=== PATIENT | female | born 1990 | race Caucasian/White ===

== ENCOUNTER 2024-11-03 14:54 | Outpatient (CLI) | payer OTHER, SELFPAY ==
--- NOTE | ~2024-11-03 | US_ITS ---
EXAMINATION: US OB transvaginal DATE: 11/03/2024 15:21 INDICATION: High risk . TECHNIQUE: Real-time transvaginal pelvic ultrasound was performed. COMPARISON: None. FINDINGS: The uterus measures 8.7 x 7.0 x 6.3 cm. There is an intrauterine gestational sac. A yolk sac is ident ified. The crown rump length measures 3 mm, which correlates with an estimated gestational age of 6 weeks and 0 day(s) (+/-) 3 day(s). heart motion is identified, but the rate could not be measured. The right ovary measures 4.2 x 2.5 x 2.6 cm. The left ovary measures 3.8 x 2.8 x 2.3 cm. Th ere is a 6 mm subchorionic hematoma. There is a 10 mm intramural fibroid. There is no free fluid in t he pelvis. IMPRESSION: 1. Single living intrauterine gestation with estimated date of delivery of 06/29/2025. 2. Small subchorionic hematoma. Reviewed, dictated and finalized at location A. CAR BRACER IMPRESSION: 1. Single living intrauterine gestation with estimated date of delivery of 06/29. 2. Small subchorionic hematoma.
== END 2024-11-03 14:55 | disposition home or self-care (01) ==
PROVIDERS: PCP Family Medicine; Visit Provider Family Medicine
DX: O09.90 Supervision of high risk pregnancy, unspecified, unspecified trimester (principal)
CPT/HCPCS: 76817

== ENCOUNTER 2024-12-01 09:15 | Outpatient (CLI) | payer OTHER, SELFPAY ==
[2024-12-01 10:21] LABS: Basophils Absolute Auto 0.1 K/mm3 (0.0-0.1); Basophils Percent Auto 0.5 % (0.2-1.2); Eosinophils Absolute Auto 0.1 K/mm3 (0-0.3); Eosinophils Percent Auto 0.6 % (0-4.4); Hematocrit 38.6 % (37.0-47.0); Hemoglobin 12.5 g/dL (12.0-15.0); Immature Granulocyte Absolute 0.05 K/mm3 (0.00-0.031); Immature Granulocyte Percent A 0.5 % (0-0.5); Lymphocytes Absolute Auto 1.77 K/mm3 (0.9-3.2); Mean Corpuscular HGB Conc 32.4 g/dl (32-36); Mean Corpuscular Hemoglobin 29.3 pg (26-34); Mean Corpuscular Volume 90.6 fl (80-100); Mean Platelet Volume 10.9 fl (7.4-10.4); Monocytes Absolute Auto 0.5 K/mm3 (0.1-0.6); Monocytes Percent Auto 5.5 % (2.6-8.5); Neutrophils Absolute Auto 6.9 K/mm3 (1.3-6.7); Neutrophils Percent Auto 73.9 % (45.5-73.1); Platelet Count Result 315 k/mm3 (150-375); Red Blood Count 4.26 M/mm3 (4.2-5.4); Red Cell Distribution Width 13.8 % (11.5-14.5); White Blood Count 9.3 K/mm3 (4.5-10.0)
[2024-12-01 10:28] LABS: Add Urine Microscopic? NO; Appearance Urine Clear (Clear); Bilirubin Urine Negative (Negative); Blood Urine Negative (Negative); Color Urine Yellow (Yellow); Glucose Urine UA Negative (Negative); Ketones Urine Negative (Negative); Leukocyte Esterase Ur Negative LEU/UL (Negative); Nitrate Urine Negative (Negative); Protein Urine Negative (Negative); Specific Grav Ur 1.006 (1.001-1.035); Urobilinogen Urine 0.2 mg/dL (<2.0); pH Urine 6.5 (5.0-9.0)
[2024-12-01 11:15] LABS: HIV 1/2 Ab P24 Ag Result Negative (Negative)
[2024-12-01 11:18] LABS: Hepatitis B Surface Antigen Negative (Negative)
[2024-12-01 11:30] LABS: Hepatitis C Virus Antibody Negative (Negative)
[2024-12-01 15:30] LABS: Rapid Plasma Reagin Non-Reactive (NonReactive)
[2024-12-02 16:45] LABS: Hematocrit 37.6 % (35.0-45.0); Hemoglobin 12.6 g/dL (11.7-15.5); MCH 30.1 pg (27.0-33.0); RDW 13.5 % (11.0-15.0); Red Blood Cell Count 4.18 Million/uL (3.80-5.10)
[2024-12-02 20:08] LABS: Varicella IgG Antibody 3.77 S/CO
== END 2024-12-01 09:16 | disposition home or self-care (01) ==
LOC: ANHLAB 09:19
PROVIDERS: PCP Family Medicine; Visit Provider Nurse Practitioner Obstetrics & Gynecology
DX: Z34.90 Encounter for supervision of normal pregnancy, unspecified, unspecified trimester (principal)
CPT/HCPCS: 36415; 81003; 83021; 85025; 86592; 86703; 86762; 86787; 86803; 86850; 86900; 86901; 87086; 87340; G0432

== ENCOUNTER 2024-12-17 08:29 | Outpatient (CLI) | payer OTHER, SELFPAY ==
--- OUTSIDE RECORDS SUMMARY | 2024-12-17 08:34 | XMS_ITS | Clinical Summary ---
Author Organization [facility] Address [address] [place] [address] Phone Care Team Providers Care Gas Meter Prover Name Role Phone Bal Foster MD Primary Care Provider [phone] Allergies Active Allergy Reactions Criticality Noted Date Comments Azithromycin Nausea,Palpitations, Vomiting,Other (see Comments) High 08/19/2021 Stomach pain Penicillin G Hives 03/30/2022 [place] Extract Hives,Rash,Itching,S welling High 08/19/2021 Swelling in throat Wound Dressing Adhesive Rash High 08/19/2021 Band-aid , Tape, medical tape Medications No known medications Active Problems No known active problems Family History Medical History Relation Name Comments No Known Problems Brother 1 No Known Problems Brother 2 Diabetes Father High Cholesterol Father Hypertension Father Kidney Disease Father Asthma Maternal Grandfather Heart Attack Maternal Grandfather Heart Disease Maternal Grandfather Heart Surgery Maternal Grandfather No Known Problems Maternal Grandmother Endometriosis Mother Migraines Mother Thyroid Disease Mother Kidney Disease Paternal Grandfather Kidney Stones Paternal Grandfather Renal Failure Paternal Grandfather Thyroid Cancer Paternal Grandmother Ulcerative Colitis Paternal Grandmother No Known Problems Sister Relation Name Status Comments Brother 1 Alive Brother 2 Alive Father Alive Maternal Grandfather Maternal Grandmother Alive Mother Alive Paternal Grandfather Paternal Grandmother Alive Sister Alive Social History Tobacco Use Types Packs/Day Years Used Date Smoking Tobacco: Never Smokeless Tobacco: Never Tobacco Cessation:Counseling Given: Yes Alcohol Use Standard Drinks/Week Comments Never 0 (1 standard drink = 0.6 oz pur e alcohol) PHQ-2 Answer Date Recorded Total Score - Questions 1-9 0 07/25 Sexually Active Control Partners Comments Not Currently Comments No Sex and Gender Information Value Date Recorded Sex Assigned at Not on file Legal Sex Female 3:24 PM CDT Gender Identity Not on file Sexual Orientation Not on file 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 Not on file Not on file Not on file Last Filed Vital Signs Vital Sign Reading Time Taken Comments Blood Pressure 136/89 03/30/2022 11:49 PM CDT Pulse 86 03/30/2022 11:49 PM CDT Temperature 37.3 ??C (99.1 ??F) 03/30/2022 9:41 PM CD T Respiratory Rate 16 03/30/2022 11:49 PM CDT Oxygen Saturation 98% 03/30/2022 11:49 PM CDT Inhaled Oxygen Concentration - - Weight 131.5 kg (290 lb) 03/30/2022 9:41 PM CDT Height 167.6 cm (5' 6 ) 03/30/2022 9:41 PM CDT Body Mass Index 46.81 03/30/2022 9:41 PM CDT Plan of Treatment Health Maintenance Due Date Last Done Comments Hepatitis C Virus (HCV) Screening 1992 TdaP Immunization 1992 Hepatitis B Immunization (1 of 3 - 19+ 3-dose series) 2011 Pap Smear 2013 Cervical Cancer Screening (CCS) 2022 HPV/Cotest 2022 Influenza Immunization (#1) 2024 SARS-COV-2 Immunization ( season) 2024 11/02/2021, 10/05/2021 Respiratory Syncytial Virus (RSV) Immunization (Adult) (1 - 1-dose 75+ series) 2067 Meningococcal Immunization (ACWY) Aged Out No longer eligible b ased on patient's age to complete this topic Pneumococcal Immunization Combined Aged Out No longer eligible b ased on patient's age to complete this topic Rotavirus Immunization Aged Out No lo nger eligible based on patient's age to complete this topic Care Teams Gas Meter Prover Relationship Specialty Start Date End Date Bal Foster MD PCP - General Family Medicine 08/07/21
--- OUTSIDE RECORDS SUMMARY | 2024-12-17 08:34 | XMS_ITS | Data Portability ---
Author Organization [facility] , [facility] Address [address] [place] [address] Assessment No assessment recorded. Plan of Treatment Reminders Order Date Submit Date Provider Last Modified By Organization Details Last Modified Time Details Appointments None jovany enamorado Lab pap, LB 2021 [facility], [address] [place], [address], 21:32:53 HPV E6+E7 mRNA, qualita tive PCR, cervix 2021 [facility], [address] [place] [address], [address], 22:46:23 progest erone, serum 2021 [facility], [address] [place], [address], 18:22:13 estradi ol, serum 2021 [facility], [address] [place], [address], 2 18:22:14 [facility] - anti-mu llerian hormone (amh), female 2021 [facility], [address] [place], [address], 18:22:12 FSH (follic le-stim ulating hormone ), serum 2021 [facility], [address] [place], [address], 18:22:13 prolact in, serum 2021 [facility], [address] [place], [address], 18:22:14 TSH + free T4, serum 2021 [facility], [address] [place], [address], 18:22:14 testost erone, total, serum 2021 [facility], [address] [place], [address], 18:22:15 dhea-casillas lfate, serum 2021 [facility], [address] [place], [address], 18:22:12 Referral None recorde d. Procedures None recorde d. Surgeries None recorde d. Imaging None recorde d. Medication Orders None recorde d. Patient TargetsNo targets recorded. Patient Instructions Encounter Date Encounter Id Patient Instructions Last Modified By Organization Details Last Modified Time 04/23/2022 [id number] Order given to patient for to get semen analysis, patient having labs drawn today, after lab results will start patient on provera and letrazole. [email or web address] Not available 04/23/2022 20:10:34 Reason for Referral None Reported. Results Created Date Observation Date Name Description Value Unit Range Abnormal Flag Note LastModifiedBy Organization Detail LastModifiedTime 03/12/20 22 03/13/2022 HPV HIGH RISK HPV high risk Negati ve negati ve normal The HPV High Risk assay is inten ded for use as co-te sting with cytol ogy and not as a subst itute for regul ar cervi neva cytol ogy scree mitchell. This assay is not inten ded for use as a scree mitchell devic e for women under age 30 with carissa l cervi neva cytol ogy. Not Available [facility] [address] [place], [address], 04/02/2022 18:30:59 03/12/20 22 03/18/2022 THINP REP TIS PAP clinical information: normal Infor matio n not provi ded Not Available [facility] [address] [address] [place], [address], 03/18/2022 21:32:53 03/12/20 22 03/18/2022 THINP REP TIS PAP LMP: normal Infor matio n not provi ded Not Available [address] [place], [address], 03/18/2022 21:32:53 03/12/20 22 03/18/2022 THINP REP TIS PAP prev. Pap: normal Infor matio n not provi ded Not Available [facility] [address] [address] [place], [address], 03/18/2022 21:32:53 03/12/20 22 03/18/2022 THINP REP TIS PAP prev. BX: normal Infor matio n not provi ded Not Available [address] [place], [address], 03/18/2022 21:32:53 03/12/20 22 03/18/2022 THINP REP TIS PAP source: normal Endoc ervix Not Available [facility] [address] [address] [place], [address], 03/18/2022 21:32:53 03/12/20 22 03/18/2022 THINP REP TIS PAP statement of adequacy: normal Satis facto ry for evalu ation . Endoc ervic al/tr ansfo rmati on zone compo nent prese nt. Age and/o r menst rual statu s not provi ded Not Available [address] [address] [place], [address], 03/18/2022 21:32:53 03/12/20 22 03/18/2022 THINP REP TIS PAP interpretati on/result: normal Negat ekaterina for intra epith elial lesio n or malig elizabeth . Not Available [address] [address] [place], [address], 03/18/2022 21:32:53 03/12/20 22 03/18/2022 THINP REP TIS PAP comment: normal This Pap test has been evalu ated with jimmy troncoso techn ology . Not Available [address] [address] [place], [address], 03/18/2022 21:32:53 03/12/20 22 03/18/2022 THINP REP TIS PAP cytotechnolo gist: normal ABC, CT( CP) CT scree mitchell locat ion: [address] [address] [place] [address] Not Available [address] [address] [place], [address], 03/18/2022 21:32:53 03/12/20 22 03/18/2022 THINP REP TIS PAP comment EXPLA NATOR Y NOTE: The Pap is a scree mitchell test for cervi neva cance r. It is not a diagn ostic test and is subje ct to false negat ekaterina and false posit ekaterina resul ts. It is most relia ble when a satis facto ry sampl e, regul corky obtai maximus, is submi tted with relev ant clini neva findi ngs and histo ry, and when the Pap resul t is evalu ated along with histo valentina and curre nt clini neva infor matio n. Not Available [address] [address] [place], [address], 03/18/2022 21:32:53 04/23/20 22 04/25/2022 ANTI- MULLE DEREK HORMO NE (AMH) , FEMAL E anti-mulleri an hormone (amh), female 13.51 NG/mL 0.69-1 3.39 high Not Available [address], [address], 04/25/2022 18:22:12 04/23/20 22 04/25/2022 DHEA SULFA TE DHEA sulfate 107 mcg/d L 14-349 normal Not Available [facility] [address] [address] [place], [address], 04/25/2022 18:22:12 04/23/20 22 04/25/2022 FSH FSH 7.1 mIU/m L normal Refer ence Range Folli cular Phase 2.5-1 0.2 Mid-c ycle Peak 3.1-1 7.7 Lutea l Phase 1.5- 9.1 Postm enopa usal 23.0- 116.3 Not Available [facility] [address] [address] [place], [address], 04/25/2022 18:22:13 04/23/20 22 04/25/2022 PROGE STERO NE progesterone 0.5 NG/mL normal Refer ence Range s Femal e Folli cular Phase < 1.0 Lutea l Phase 2.6-2 1.5 Post menop ausal < 0.5 Pregn wendy 1st Trime ster 4.1-3 4.0 2nd Trime ster 24.0- 76.0 3rd Trime ster 52.0- 302.0 Not Available [facility] [address] [address] [place], [address], 04/25/2022 18:22:13 04/23/20 22 04/25/2022 PROLA CTIN prolactin 8.8 NG/mL normal Refer ence Range Femal es Non-p regna nt 3.0-3 0.0 Pregn ant 10.0- 209.0 Postm enopa usal 2.0-2 0.0 Not Available [facility] [address] [place], [address], 04/25/2022 18:22:14 04/23/20 22 04/25/2022 ESTRA DIOL estradiol 37 pg/mL normal Refer ence Range Folli cular Phase : 19-14 4 Mid-C ycle: 64-35 7 Lutea l Phase : 56-21 4 Postm enopa usal: < or = 31 Refer ence range estab lishe d on post- puber kendy patie nt popul ation . No pre-p ubert al refer ence range estab lishe d using this assay . For any patie nts for whom low Estra diol level s are antic ipate d (e.g. males , pre-p ubert al child katiuska and hypog onada l/pos t-men opaus al femal es), the [facility] Estra diol, Ultra sensi tive, LCMSM S assay is recom itzel d (orde r code 73220 ). Pleas e note: patie nts being treat ed with the drug fulve stran t (Fasl odex( R)) have demon strat ed signi fican t inter feren ce in immun oassa y metho ds for estra diol measu remen t. The cross react ivity could lead to false ly eleva adalberto estra diol test resul ts leadi ng to an inapp ropri ate clini neva asses sment of estro gen statu s. [facility] order code [id number] -Estr adiol , Ultra sensi tive LC/MS /MS demon strat es negli gible cross react ivity with fulve stran t. Not Available [facility] [address] [place], [address], 04/25/2022 18:22:14 04/23/20 22 04/25/2022 TSH+F REE T4 TSH 5.18 mIU/L high Refer ence Range > or = 20 Years 0.40- 4.50 Pregn wendy Range s First trime ster 0.26- 2.66 Secon d trime ster 0.55- 2.73 Third trime ster 0.43- 2.91 Not Available [facility] [address], [place], [address], 04/25/2022 18:22:14 04/23/20 22 04/25/2022 TSH+F REE T4 T4, free 1.4 NG/dL 0.8-1. 8 normal Not Available [facility] [address], [place], [address], 04/25/2022 18:22:14 04/23/20 22 04/25/2022 TESTO STERO NE, TOTAL , MS testosterone , total, MS 50 NG/dL 2-45 high For addit ional infor dong mack refer to https ://ed ucati on.i-Human Patients/f aq/To Regan javed LCMSM S (This link is being provi ded for infor danie nal/e ducat ional purpo ses only. ) (Note ) This test was devel oped and its harjinder tical perfo rmanc e bashir cteri stics have been deter mined by [employer]. It has not been clear ed or appro chery by the FDA. This assay has been valid ated pursu ant to the CLIA regul ation s and is used for clini neva purpo ses. PK samuel [address] [facility] [address] [facility] [address] [phone] Garry sabillon MD Not Available [facility] [address], [place], [address], 04/25/2022 18:22:15 Result Notes None recorded. Procedures Surgical History Date Name Laterality Status Provider Name and Address Organization Details Recorded Time 03/12/2022 Date of Last Pap Smear completed [facility] 04/23/2022 15:46:12 Knee arthroscopy /surgery completed [facility] 04/23/2022 15:43:25 Imaging Results None recorded. Procedure Notes None recorded. Medical Equipment None Reported. Allergies Allergen ID Allergen Name Allergen Category Reaction Reaction Severity Criticality Documentation Date Start Date Code Code System Note Provider Name and Address Organization Details Recorded Time [id number] 2824e latex environme nt,medica tion Not available Not available Not available 03/12/2022 04636 91 RxNorm Not Available Not Available Not Available [id number] 4519516o0 2824e Product containin g penicilli n and antibioti c (product) medicatio n Not available Not available Not available 03/12/2022 61883 05 SNOMED Not Available Not Available Not Available [id number] [id number] 2824e azithromy radha medicatio n Not available Not available Not available 03/12/2022 56364 RxNorm Not Available Not Available Not Available Medications Name Sig Start Date Stop Date Status Note LastModified by Organization Details LastModified Time medroxyprog esterone 10 mg tablet 03/12 completed Not Available Not Available Not Available promethazin e-DM 6.25 mg-15 mg/5 mL oral syrup TAKE 5 ML BY MOUTH EVERY 4 HOURS NEEDED FOR COUGH 03/12 completed Not Available Not Available Not Available meloxicam 15 mg tablet TAKE 1 TABLET BY MOUTH DAILY 03/12 completed Not Available Not Available Not Available sulfamethox azole 800 mg-trimetho prim 160 mg tablet TAKE 1 TABLET BY MOUTH TWICE DAILY 03/12 completed Not Available Not Available Not Available benzonatate 100 mg capsule TAKE 2 CAPSULES BY MOUTH THREE TIMES DAILY FOR UP TO 10 DAYS NEEDED FOR COUGH 03/12 completed Not Available Not Available Not Available norethindro ne acetate 5 mg tablet active Not Available Not Available Not Available letrozole 2.5 mg tablet TAKE ONE TABLET BY MOUTH DAYS 3-7 OF CYCLE EACH MONTH active Not Available Not Available No t Available methylpredn isolone 4 mg tablets in a dose pack TAKE BY MOUTH DIRECTED 03/12 completed Not Available Not Available Not Available albuterol sulfate HFA 90 mcg/actuati on aerosol inhaler INHALE 2 PUFFS BY MOUTH EVERY 4 TO 6 HOURS NEEDED FOR COUGH OR WHEEZING 03/12 completed Not Available Not Available Not Available Vitals Date Recorded Body height Provider Name an d Address Organization Details Last Updated DateTime 03/12/2022 167.64 cm [facility] 03/12/2022 10:32:26 Date Recorded Body mass index (BMI) Body weight Provider Name and Address Organization Details Last Updated DateTime 03/12/2022 47.5 kg/m2 222510.16 g Tarah BURKS [facility] 03/12/2022 10:32:39 Date Recorded Body height Provider Name an d Address Organization Details Last Updated DateTime 04/23/2022 167.64 cm Juanis Pennington [facility] 04/23/2022 15:45:37 Date Recorded Body mass index (BMI) Body weight Provider Name and Address Organization Details Last Updated DateTime 04/23/2022 46.9 kg/m2 775285.66 g Juanis Pennington [place] [facility] 04/23/2022 15:48:05 Date Recorded Body temperature Provider Name a nd Address Organization Details Last Updated DateTime 04/23/2022 97.3 [degF] Juanis Pennington [facility] 04/23/2022 15:48:11 Date Recorded Systolic blood pressure Diastolic blood pressure Provider Name and Address Organization Details Last Updated DateTime 03/12/2022 120 mm[Hg] 80 mm[Hg] Tarah Rich [facility] 03/12/2022 10:32:30 Date Recorded Systolic blood pressure Diastolic blood pressure Provider Name and Address Organization Details Last Updated DateTime 04/23/2022 130 mm[Hg] 78 mm[Hg] Juanis Pennington [facility] 04/23/2022 15:47:59 Social History Question Answer Notes LastModified by Organizat ion Details LastModified Time Tobacco Smoking Status Never Smoker Tarah child, [facility] 03/12/2022 10:18:44 What Is Your Level Of Alcohol Consumption? None [email or web address] Information not available 03/12/2022 Are You Blind Or Do You Have Difficulty Seeing? No [email or web address] Information not available 04/23/2022 Are You Deaf Or Do You Have Serious Difficulty Hearing? No [email or web address] Information not available 04/23/2022 What Type Of Diet Are You Following? REGULAR [email or web address] Information not available 03/12/2022 Do You Or Have You Ever Used E-cigarettes Or Vape? Never Used Electronic Cigarettes [email or web address] Information not available 03/12/2022 How Many Children Do You Have? 1 [email or web address] Information not available 04/23/2022 What Is Your Relationship Status? Information not available 03/12/2022 Are You Sexually Active? Yes Information not available 03/12/2022 Do You Use Any Illicit Or Recreational Drugs? No [email or web address] Information not available 04/23/2022 Do You Or Have You Ever Used Any Other Forms Of Tobacco Or Nicotine? No [email or web address] Information not available 04/23/2022 Sex: Unknown Functional Status Question Answer Note LastModified by Organization D etails LastModified Time What is your exercise level? Moderate [email or web address] Information not available 03/12/2022 Mental Status None recorded. Family History Relationship Description Onset Age of this Age Resolved Age Notes LastModified by Organization Details LastModified Time Paternal Grandfather Hypercholest erolemia [email or web address] Not available 03/12 10:18:16 Paternal Grandfather Heart disease [email or web address] Not available 03/12 10:18:16 Mother Endometriosi s (clinical) [email or web address] Not available 10:18:16 Mother Hyperthyroid ism [email or web address] Not available 03/12 10:18:16 Father Diabetes mellitus [email or web address] Not available 03/12 10:18:16 Father Hypertensive disorder [email or web address] Not available 03/12 10:18:16 Maternal Grandfather Myocardial infarction [email or web address] Not available 02/22 10:18:16 Maternal Grandfather Heart disease [email or web address] Not available 03/12 10:18:16 Paternal Grandmother Malignant neoplastic disease [email or web address] Not available 03/12 10:18:16 Medical History Condition Response Other Cancer N High Blood Pressure N Colon Cancer N Cytomegalovirus N Hyperthyroidism N MRSA N Blood Transfusion N Herpes (HSV) N Breast Cancer N Lung Cancer N Depression N Hypothyroidism N Incontinence N Panic Attacks N Neurological Disorder N Deep Vein Thrombosis N Anxiety Disorder N Autoimmune disease N Arthritis N Tuberculosis/Positive PPD N Shingles N Polycystic Ovarian Syndrome N Cervical Cancer N Hematuria N Chlamydia N Stroke N Varicosities N Seasonal allergies N Crohn's Disease N Alzheimer's/Dementia N COPD/Emphysema N HPV/Genital Warts N Endometriosis N IBS (Irritable Bowel Syndrome) N History of Abnormal Pap N High Cholesterol N Liver Disease N Kidney Infection N Fibromyalgia N Ulcer N Kidney Disease N HIV N Gallbladder disease N Sickle Cell Disease/Trait N Von Willebrand disease N ADD/ADHD N Eating Disorder N Anemia N Diabetes Mellitus (non-insulin dependent ) N Multiple Sclerosis N Ovarian Problems N Gonorrhea N Frequent Urinary Tract infections N Osteopenia N Headaches/migraines N GERD (reflux) N Ovarian Cancer N Diabetes (insulin dependent) N Seizures/Epilepsy N Fibroids N Asthma N Heart Attack N Lupus N Endometrial Cancer N Rubella N Blood Clotting Disorder N Bipolar Disorder N Diabetes Mellitus (during ) N Ulcerative Colitis N Hepatitis N Heart Disease N Pulmonary Embolism N RPR N Chicken Pox N Osteoporosis N Gynecological History Statement/Question Response Flow Light Frequency of Cycle (Q days) Irregular Date of LMP 06/26/2021 Date of Last Pap Smear 03/12/2022 Duration of Flow (days) 3-4 Most Recent Mammogram Current Control Method Fertility I ssues Age at Menarche 16 Obstetrics History GPAL:G 1 P 1 0 0 1 Type Value Full Term 1 Living 1 Total 1 Past Encounters Encounter ID Performer Location Encounter Start Date Encounter Closed Date Diagnosis/Indication Diagnosis SNOMED-CT Code Diagnosis ICD10 Code Diagnosis Note [id number] [facility]ell[facility] [address] [place] [address] 03/12/2022 09:50:30 03/12/2022 12:56:09 Screening for malignant neoplasm of cervix 946482490 Z12.4 Gynecologi c examination 91232314 Z01.331 [id number] Munira Ng, [facility] [address] [place] [address] 04/23/2022 15:31:58 04/23/2022 16:27:25 Reproductive care management [id number] Z31.9 Health Concerns Section Related Observation LastModified by Organization Detai ls LastModified Time None Recorded Concern Status LastModified by Organization Details LastModified Time None Recorded Advance Directives Directive None Recorded Payers Encounter Date Sequence Insurance Name Policy Number Policy Cummings Covered Member ID Cummings Member ID Guarantor Name 03/12/2022 1 [place] [id number] Domitila Shepard [id number] Domitila Shepard 04/23/2022 1 [place] [id number] Domitila Shepard [id number] Domitila Shepard Notes Date Note Type Note Provider Name and Address Organization Details Recorded Time 04/23/2022 text/html Patient is here to discuss fertility. had a @ 37 weeks gestation 3 years ago due to preeclampsia. She was treated with provera and letrazole to conceive during her first . She has a history of PCOS, does not have regular cycles. She has not had a menses since June 2021. Her is Srinivas Shepard [birth year]13/1991, patient states that he had a low semen count during her first . Munira Ng, DO [facility], [place], [address], [facility] 04/23/2022 20:10:56 OBGyn Episode No OBEpisode recorded.
--- OUTSIDE RECORDS SUMMARY | 2024-12-17 08:34 | XMS_ITS | Clinical Summary ---
Author Organization [facility] Address [address] [place] [address]. [place], [place] [id number] [place] [id number] Care Team Providers Care Index Editor Name Role Phone Pauline Sanchez MD Primary Care Provider [phone]- [phone] Allergies Active Allergy Reactions Criticality Noted Date Comments Azithromycin Unknown 09/15/2024 Medications cephALEXin (KEFLEX) 500 MG capsule Take 1 capsule (500 mg total) by mouth 2 (two) times daily. Active WEGOVY 1.7 mg/dose injection (PEN) Inject 1.7 mg into the skin once a week. Active sertraline (ZOLOFT) 25 MG tablet Take 1 tablet (25 mg total) by mouth daily. Active ciprofloxacin (CILOXAN) 0.3 % ophthalmic solution Administer 1 drop, every 2 hours, while awake, for 2 days. Then 1 drop, every 4 hours, while awake, for the next 5 days. 5 mL Active Encounters Date Type Department Care Team Description 10/28/2024 8:36 AM CYBER DEFENSE FORENSICS ANALYST - 10/28/2024 11:59 PM CYBER DEFENSE FORENSICS ANALYST Hospital Encounter [facility] [address] [place] [address] Pauline Sanchez MD Discharge Disposition: Home or Self Care (Routine Discharge) 10/28/2024 Travel from Last 3 Months Social History Tobacco Use Types Packs/Day Years Used Date Smoking Tobacco: Never Smokeless Tobacco: Never Tobacco Cessation:Counseling Given: Not Answered Comments No Sex and Gender Information Value Date Recorded Sex Assigned at Not on file Legal Sex Female 9:16 AM CYBER DEFENSE FORENSICS ANALYST Gender Identity Not on file Sexual Orientation Not on file Last Filed Vital Signs Vital Sign Reading Time Taken Comments Blood Pressure 130/84 09/15/2024 6:30 PM CDT Pulse 86 09/15/2024 6:30 PM CDT Temperature 36.5 ??C (97.7 ??F) 09/15/2024 5:20 PM CD T Respiratory Rate 18 09/15/2024 6:30 PM CDT Oxygen Saturation 96% 09/15/2024 6:30 PM CDT Inhaled Oxygen Concentration - - Weight 115.8 kg (255 lb 4 oz) 09/15/2024 5:20 PM CDT Height 166.4 cm (5' 5.5 ) 09/15/2024 5:20 PM CDT Body Mass Index 41.83 09/15/2024 5:20 PM CDT Plan of Treatment Health Maintenance Due Date Last Done Comments Cervical Cancer Screening Pa p Smear (Age 30 to 64) Every 3 Years 1992 Annual Physical 1995 Hepatitis C 2010 Hepatitis B Vaccines (1 of 3 - 19+ 3-dose series) 2011 Cervical Cancer Screening Pa p with HPV Testing (Age 30 to 64) Every 5 Years 2022 Cervical Cancer Screening [facility] HPV 2022 COVID-19 Vaccine (3 - 2023-2 5 season) 2024 11/02/2021, 10/05/2021 Influenza Adult (#1) 2024 DTaP, Tdap and Td Vaccines ( 2 - Td or Tdap) 11/23/2028 11/23/2018 HPV Vaccines Aged Out No longer eligi ble based on patient's age to complete this topic Meningococcal Vaccine Aged Out No jenaro reena eligible based on patient's age to complete this topic Pneumococcal Vaccine: Pediatrics (0 to 5 Years) and At-Risk Patients (6 to 64 Years) Aged Out No longer eligible b ased on patient's age to complete this topic RSV Immunizations Under 20 Months Aged Out No longer eligible b ased on patient's age to complete this topic Procedures Procedure Name Priority Date/Time Associated Diagnosis Comments US OB <14WKS TA+TV Routine 10/28/2024 9: 36 AM CYBER DEFENSE FORENSICS ANALYST High risk case management patient ([facility]) from Last 3 Months Results * US OB <14WKS TA+TV (10/28/2024 9:36 AM CYBER DEFENSE FORENSICS ANALYST) Anatomical Region Laterality Modality Ultrasound 10/28/2024 4:55 PM CYBER DEFENSE FORENSICS ANALYST Impressions 10/28/2024 5:04 PM CYBER DEFENSE FORENSICS ANALYST IMPRESSION: 1. Enlarged heterogeneous uterus. Endometrial cavity structure with features suggestive of a gestational sac. Although no yolk sac or embryo demonstrated at this time. Differential considerations include early versus anembryonic /blighted ovum versus potential pseudogestational sac in the setting of ectopic . Recommend clinical correlation with beta hCG and consider follow-up short-term interval ultrasound to reassess. 2. Nabothian cysts and/or some minimal fluid in endocervical canal. 3. Heterogeneous uterus with focal findings anterior uterine myometrium. Potentially represents subtle fibroid or less likely focal adenomyosis. Ordered By: PAULINE SANCHEZ Interpreted By: Keli Johnson MD, 10/28/2024 4:55 PM Narrative 10/28/2024 5:04 PM CYBER DEFENSE FORENSICS ANALYST [address] [place] [address] EXAM: NONOBSTETRIC PELVIC ULTRASOUND Exam Date: 10/28/2024 8:36 AM INDICATION: Reported gravid female, high risk. No beta hCG level provided. . LMP: 09/15/2024 TECHNIQUE: Static sonographic transabdominal and transvaginal grayscale images supplemented with Doppler imaging. COMPARISON: None FINDINGS: UTERUS: Anteverted anteflexed mildly enlarged heterogeneous appearing uterus. Within the endometrial cavity focal anechoic ovoid structure at the level of the fundus towards the left noted. There may be subtle associated surrounding decidual reaction thereby potentially representing gestational sac. However no yolk sac or embryo demonstrated. This measures approximately 10 x 5 x 10 mm correlating with 5 weeks 3 days gestation. Heterogeneous mixed echogenicity and echotexture of the myometrium throughout. More focal dominant potential subtle heterogeneous mass with differential shadowing anterior uterine fundus/body junction suggested. CERVICAL CANAL: Heterogeneous appearance of the partially obscured endocervical canal with suggestion of small nabothian cysts at/or minimal fluid. ADNEXAE / CUL-DE-SAC: Both ovaries are identified and within normal limits for size, morphology, and exhibited vascular spectral waveforms. No suspicious adnexal mass demonstrated. No significant cul-de-sac free fluid. Procedure Note Keli Johnson MD - 10/28/2024 [facility] [address] [place] [address] EXAM: NONOBSTETRIC PELVIC ULTRASOUND Exam Date: 10/28/2024 8:36 AM INDICATION: Reported gravid female, high risk. No beta hCG level provided.. LMP: 09/15/2024 TECHNIQUE: Static sonographic transabdominal and transvaginal grayscaleimages supplemented with Doppler imaging. COMPARISON: None FINDINGS: UTERUS: Anteverted anteflexed mildly enlarged heterogeneous appearinguterus. Within the endometrial cavity focal anechoic ovoid structure atthe level of the fundus towards the left noted. There may be subtleassociated surrounding decidual reaction thereby potentially representinggestational sac. However no yolk sac or embryo demonstrated. This measuresapproximately 10 x 5 x 10 mm correlating with 5 weeks 3 days gestation. Heterogeneous mixed echogenicity and echotexture of the myometriumthroughout. More focal dominant potential subtle heterogeneous mass withdifferential shadowing anterior uterine fundus/body junction suggested. CERVICAL CANAL: Heterogeneous appearance of the partially obscuredendocervical canal with suggestion of small nabothian cysts at/or minimalfluid. ADNEXAE / CUL-DE-SAC: Both ovaries are identified and within normal limits for size, morphology,and exhibited vascular spectral waveforms. No suspicious adnexal massdemonstrated. No significant cul-de-sac free fluid. IMPRESSION: 1. Enlarged heterogeneous uterus. Endometrial cavity structure with features suggestive of a gestationalsac. Although no yolk sac or embryo demonstrated at this time. Differential considerations include early versus anembryonicpregnancy/blighted ovum versus potential pseudogestational sac in thesetting of ectopic . Recommend clinical correlation with beta hCG and consider pqvtvg-txcbvkb-mshc interval ultrasound to reassess. 2. Nabothian cysts and/or some minimal fluid in endocervical canal. 3. Heterogeneous uterus with focal findings anterior uterine myometrium. Potentially represents subtle fibroid or less likely focal adenomyosis. Ordered By: PAULINE SANCHEZ Interpreted By: Keli Johnson MD, 10/28/2024 4:55 PM us Pauline Sanchez MD ULTRASOUND Final Resu lt from Last 3 Months Insurance Care Teams Index Editor Relationship Specialty Start Date End Date Pauline Sanchez MD [address] [place] [phone] PCP - General FAMILY PRACTICE 12/10/23
[2024-12-17 10:42] LABS: Glucose 1 Hour PP 50gm Dose 156 mg/dL (70-130)
== END 2024-12-17 08:30 | disposition home or self-care (01) ==
PROVIDERS: PCP Family Medicine; Visit Provider Nurse Practitioner Obstetrics & Gynecology
DX: Z34.90 Encounter for supervision of normal pregnancy, unspecified, unspecified trimester (principal); E66.9 Obesity, unspecified
CPT/HCPCS: 36415; 82947

== ENCOUNTER 2024-12-23 07:10 | Outpatient (CLI) | payer OTHER, SELFPAY ==
--- OUTSIDE RECORDS SUMMARY | 2024-12-23 07:13 | XMS_ITS | Data Portability ---
Author Organization [facility] Address [address] [place] [address] Assessment No assessment recorded. Plan of Treatment Reminders Order Date Submit Date Provider Last Modified By Organization Details Last Modified Time Details Appointments None jovany enamorado Lab pap, LB 2021 [facility], [address] [place], [address], 21:32:53 HPV E6+E7 mRNA, qualita tive PCR, cervix 2021 [facility], [address] [place] [address], [address], 22:46:23 progest erone, serum 2021 [facility], [address] [place], [address], 18:22:13 estradi ol, serum 2021 [facility], [address] [place], [address], 2 18:22:14 edgar gotti lab - anti-mu llerian hormone (amh), female 2021 [facility], [address] [place], [address], 18:22:12 FSH (follic le-stim ulating hormone ), serum 2021 [facility], [address] [place], [address], 18:22:13 prolact in, serum 2021 [facility], [address] [place], [address], 18:22:14 TSH + free T4, serum 2021 [facility], [address] [place], [address], 18:22:14 testost erone, total, serum 2021 [facility], [address] [place], [address], 18:22:15 dhea-casillas lfate, serum 2021 [facility], [address] [place], [address], 18:22:12 Referral None recorde d. Procedures None recorde d. Surgeries None recorde d. Imaging None recorde d. Medication Orders None recorde d. Patient TargetsNo targets recorded. Patient Instructions Encounter Date Encounter Id Patient Instructions Last Modified By Organization Details Last Modified Time 04/23/2022 [id number] Order given to patient for to get semen analysis, patient having labs drawn today, after lab results will start patient on provera and letrazole. [email or web address] Not available 04/23/2022 20:10:34 Reason for Referral [...] l cervi neva cytol ogy. Not Available [facility] [address] [place], [address], 04/02/2022 18:30:59 03/12/20 22 03/18/2022 THINP REP TIS PAP clinical information: normal Infor matio n not provi ded Not Available [facility] [place] [address] [place], [address], 03/18/2022 21:32:53 03/12/20 22 03/18/2022 THINP REP TIS PAP LMP: normal Infor matio n not provi ded Not Available [address] [place], [address], 03/18/2022 21:32:53 03/12/20 22 03/18/2022 THINP REP TIS PAP prev. Pap: normal Infor matio n not provi ded Not Available [facility] [place] [address] [address] [place], [address], 03/18/2022 21:32:53 03/12/20 22 03/18/2022 THINP REP TIS PAP prev. BX: normal Infor matio n not provi ded Not Available [address] [place], [address], 03/18/2022 21:32:53 03/12/20 22 03/18/2022 THINP REP TIS PAP source: normal Endoc ervix Not Available [facility] [address] [address] [place], [address], 03/18/2022 21:32:53 03/12/20 22 03/18/2022 THINP REP TIS PAP statement of adequacy: normal Satis facto ry for evalu ation . Endoc ervic al/tr ansfo rmati on zone compo nent prese nt. Age and/o r menst rual statu s not provi ded Not Available [address] [address] [place], [address], 03/18/2022 21:32:53 03/12/20 22 03/18/2022 THINP REP TIS PAP interpretati on/result: normal Negat ekaterina for intra epith elial lesio n or malig elizabeth . Not Available [address] [address] [place], [address], 03/18/2022 21:32:53 03/12/20 22 03/18/2022 THINP REP TIS PAP comment: normal This Pap test has been evalu ated with jimmy troncos[employer] techn ology . Not Available [address] [address] [place], [address], 03/18/2022 21:32:53 03/12/20 22 03/18/2022 THINP REP TIS PAP cytotechnolo gist: normal ABC, CT( CP) CT scree mitchell locat ion: [place] [address] [place] [address] Not Available [address] [address] [place], [address], 03/18/2022 21:32:53 03/12/20 22 03/18/2022 THINP REP [...] clini neva infor matio n. Not Available [address] [address] [place], [address], 03/18/2022 21:32:53 04/23/20 22 04/25/2022 ANTI- MULLE DEREK HORMO NE (AMH) , FEMAL E anti-mulleri an hormone (amh), female 13.51 NG/mL 0.69-1 3.39 high Not Available [address], [address], 04/25/2022 18:22:12 04/23/20 22 04/25/2022 DHEA SULFA TE DHEA sulfate 107 mcg/d L 14-349 normal Not Available [facility] [place] [address] [address] [place], [address], 04/25/2022 18:22:12 04/23/20 22 04/25/2022 FSH FSH 7.1 mIU/m L normal Refer ence Range Folli cular Phase 2.5-1 0.2 Mid-c ycle Peak 3.1-1 7.7 Lutea l Phase 1.5- 9.1 Postm enopa usal 23.0- 116.3 Not Available [facility] [address] [address] [place], [address], 04/25/2022 18:22:13 04/23/20 22 04/25/2022 PROGE STERO NE progesterone 0.5 NG/mL normal Refer ence Range s Femal e Folli cular Phase < 1.0 Lutea l Phase 2.6-2 1.5 Post menop ausal < 0.5 Pregn wendy 1st Trime ster 4.1-3 4.0 2nd Trime ster 24.0- 76.0 3rd Trime ster 52.0- 302.0 Not Available [facility] [address] [address] [place], [address], 04/25/2022 18:22:13 04/23/20 22 04/25/2022 PROLA CTIN prolactin 8.8 NG/mL normal Refer ence Range Femal es Non-p regna nt 3.0-3 0.0 Pregn ant 10.0- 209.0 Postm enopa usal 2.0-2 0.0 Not Available [facility] [address] [place], [address], 04/25/2022 18:22:14 04/23/20 22 04/25/2022 ESTRA DIOL [...] is recom itzel d (orde r code 08914 ). Pleas e note: patie nts being [...] s. [facility] order code 87326 -Estr adiol , Ultra sensi tive LC/MS /MS demon strat es negli gible cross react ivity with fulve stran t. Not Available [employer] [facility] [address] [place], [address], 04/25/2022 18:22:14 04/23/20 22 04/25/2022 TSH+F REE T4 TSH 5.18 mIU/L high Refer ence Range > or = 20 Years 0.40- 4.50 Pregn wendy Range s First trime ster 0.26- 2.66 Secon d trime ster 0.55- 2.73 Third trime ster 0.43- 2.91 Not Available [facility] [address] [address], [place], [address], 04/25/2022 18:22:14 04/23/20 22 04/25/2022 TSH+F REE T4 T4, free 1.4 NG/dL 0.8-1. 8 normal Not Available [facility] [address] [address], [place], [address], 04/25/2022 18:22:14 04/23/20 22 04/25/2022 TESTO STERO NE, TOTAL , MS testosterone , total, MS 50 NG/dL 2-45 high For addit ional infor dong mack refer to https ://ed ucati on.Mobile365 (fka [employer])/f aq/To Regan javed LCMSM S (This link is being provi ded for infor danie nal/e ducat ional purpo ses only. ) (Note ) This test was devel oped and its harjinder tical perfo rmanc e bashir cteri stics have been deter mined by [employer]. It has not been clear ed or appro chery by the FDA. This assay has been valid ated pursu ant to the CLIA regul ation s and is used for clini neva purpo ses. PK samuel [address] [facility] [address] [facility] [address] [phone] Garry sabillon MD Not Available [facility] [address] [address], [place], [address], 04/25/2022 18:22:15 Result Notes None recorded. Procedures Surgical History Date Name Laterality Status Provider Name and Address Organization Details Recorded Time 03/12/2022 Date of Last Pap Smear completed [facility] 04/23/2022 15:46:12 Knee arthroscopy /surgery completed [facility] 04/23/2022 15:43:25 Imaging Results None recorded. Procedure Notes None recorded. Medical Equipment None Reported. Allergies Allergen ID Allergen Name Allergen Category Reaction Reaction Severity Criticality Documentation Date Start Date Code Code System Note Provider Name and Address Organization Details Recorded Time [id number] 1022946b3 2824e latex environme nt,medica tion Not available Not available Not available 03/12/2022 26305 91 RxNorm Not Available Not Available Not Available [id number] 0610725n3 2824e Product containin g penicilli n and antibioti c (product) medicatio n Not available Not available Not available 03/12/2022 84192 05 SNOMED Not Available Not Available Not Available [id number] [id number] 5665026w3 2824e azithromy radha medicatio n Not available Not available Not available 03/12/2022 20845 RxNorm Not Available Not Available Not Available [...] Updated DateTime 03/12/2022 167.64 cm [facility] 03/12/2022 10:32:26 Date Recorded Body mass index (BMI) Body weight Provider Name and Address Organization Details Last Updated DateTime 03/12/2022 47.5 kg/m2 049871.16 g Tarah BURKS [employer] [facility] 03/12/2022 10:32:39 Date Recorded Body height Provider Name an d Address Organization Details Last Updated DateTime 04/23/2022 167.64 cm Juanis Pennington [facility] 04/23/2022 15:45:37 Date Recorded Body mass index (BMI) Body weight Provider Name and Address Organization Details Last Updated DateTime 04/23/2022 46.9 kg/m2 693492.66 g Juanis Pennington [place] [facility] 04/23/2022 15:48:05 Date Recorded Body temperature Provider Name a nd Address Organization Details Last Updated DateTime 04/23/2022 97.3 [degF] Juanis Pennington [facility] 04/23/2022 15:48:11 Date Recorded Systolic blood pressure Diastolic blood pressure Provider Name and Address Organization Details Last Updated DateTime 03/12/2022 120 mm[Hg] 80 mm[Hg] Tarah Rich [facility] 03/12/2022 10:32:30 Date Recorded Systolic blood pressure Diastolic blood pressure Provider Name and Address Organization Details Last Updated DateTime 04/23/2022 130 mm[Hg] 78 mm[Hg] Juanis Pennington [facility] [employer] [facility] 04/23/2022 15:47:59 Social History Question Answer Notes LastModified by Organizat ion Details LastModified Time Tobacco Smoking Status Never Smoker Tarah child, [facility] 03/12/2022 10:18:44 What Is Your Level Of Alcohol Consumption? None [email or web address] Information not available 03/12/2022 Are You Blind Or Do You Have Difficulty Seeing? No [email or web address] Information not available 04/23/2022 Are You Deaf Or Do You Have Serious Difficulty Hearing? No [email or web address] Information not available 04/23/2022 What Type Of Diet Are You Following? REGULAR [email or web address] Information not available 03/12/2022 Do You Or Have You Ever Used E-cigarettes Or Vape? Never Used Electronic Cigarettes [email or web address] Information not available 03/12/2022 How Many Children Do You Have? 1 [email or web address] Information not available 04/23/2022 What Is Your Relationship Status? [email or web address] Information not available 03/12/2022 Are You Sexually Active? Yes [email or web address] Information not available 03/12/2022 Do You Use Any Illicit Or Recreational Drugs? No [email or web address] Information not available 04/23/2022 Do You Or Have You Ever Used Any Other Forms Of Tobacco Or Nicotine? No [email or web address] Information not available 04/23/2022 Sex: Unknown Functional Status Question Answer Note LastModified by Organization D etails LastModified Time What is your exercise level? Moderate [email or web address] Information not available 03/12/2022 Mental Status None recorded. Family History Relationship Description Onset Age of this Age Resolved Age Notes LastModified by Organization Details LastModified Time Paternal Grandfather Hypercholest erolemia [email or web address] Not available 03/12 10:18:16 Paternal Grandfather Heart disease Not available 03/12 10:18:16 Mother Endometriosi s (clinical) Not available 10:18:16 Mother Hyperthyroid ism Not available 03/12 10:18:16 Father Diabetes mellitus Not available 03/12 10:18:16 Father Hypertensive disorder [email or web address] Not available 03/12 10:18:16 Maternal Grandfather Myocardial infarction Not available 02/22 10:18:16 Maternal Grandfather Heart disease [email or web address] Not available 03/12 10:18:16 Paternal Grandmother Malignant neoplastic disease [email or web address] Not available 03/12 10:18:16 Medical History Condition Response Other Cancer N High Blood Pressure N Colon Cancer N Cytomegalovirus N Hyperthyroidism N Herpes (HSV) N Breast Cancer N Blood Transfusion N MRSA N Lung Cancer N Hypothyroidism N Depression N Incontinence N Panic Attacks N Neurological Disorder N Deep Vein Thrombosis N Anxiety Disorder N Autoimmune disease N Arthritis N Tuberculosis/Positive PPD N Shingles N Polycystic Ovarian Syndrome N Cervical Cancer N Chlamydia N Hematuria N Stroke N Varicosities N Crohn's Disease N Seasonal allergies N Alzheimer's/Dementia N COPD/Emphysema N HPV/Genital Warts N Endometriosis N IBS (Irritable Bowel Syndrome) N History of Abnormal Pap N High Cholesterol N Liver Disease N Kidney Infection N Fibromyalgia N Ulcer N Kidney Disease N HIV N Gallbladder disease N Sickle Cell Disease/Trait N Von Willebrand disease N ADD/ADHD N Eating Disorder N Anemia N Diabetes Mellitus (non-insulin dependent ) N Ovarian Problems N Multiple Sclerosis N Gonorrhea N Frequent Urinary Tract infections N Osteopenia N Headaches/migraines N GERD (reflux) N Ovarian Cancer N Diabetes (insulin dependent) N Seizures/Epilepsy N Fibroids N Heart Attack N Asthma N Lupus N Endometrial Cancer N Rubella [...] SNOMED-CT Code Diagnosis ICD10 Code Diagnosis Note [id number] Rad[facility] medellin, [facility] [address] [place] [address] 03/12/2022 09:50:30 03/12/2022 12:56:09 Screening for malignant neoplasm of cervix 371751495 Z12.4 Gynecologi c examination 25664425 Z01.133 [id number] Munira Ng, [facility] [address] [place] [address] 04/23/2022 15:31:58 04/23/2022 16:27:25 Reproductive care management 469030920 Z31.9 Health Concerns Section Related Observation LastModified by Organization Detai ls LastModified Time None Recorded Concern Status LastModified by Organization Details LastModified Time None Recorded Advance Directives Directive None Recorded Payers Encounter Date Sequence Insurance Name Policy Number Policy Cummings Covered Member ID Cummings Member ID Guarantor Name 03/12/2022 1 [place] [id number] Domitila Shepard [id number] Domitila Shepard 04/23/2022 1 [place] [id number] Domitila Shepard [id number] Domitila Shepard Notes Date Note Type [...] during her first . Munira Ng, DO [facility], [place], [address], [facility] 04/23/2022 20:10:56 OBGyn Episode No OBEpisode recorded.
--- OUTSIDE RECORDS SUMMARY | 2024-12-23 07:13 | XMS_ITS | Clinical Summary ---
Author Organization [facility] Address [address] [place] [address]. [place], [place] [address] [place] [id number] Care Team Providers Care Fabric Designer Name Role Phone Pauline Sanchez MD Primary Care Provider [phone] Allergies Active Allergy Reactions Criticality Noted Date [...] Department Care Team Description 10/28/2024 8:36 AM RETAIL COORDINATOR - 10/28/2024 11:59 PM RETAIL COORDINATOR Hospital Encounter [facility] [address] [place] [address] Pauline Sanchez MD Discharge Disposition: Home or Self Care (Routine Discharge) 10/28/2024 Travel from Last 3 Months Social History Tobacco Use Types Packs/Day Years Used Date Smoking Tobacco: Never Smokeless Tobacco: Never Tobacco Cessation:Counseling Given: Not Answered Comments No Sex and Gender Information Value Date Recorded Sex Assigned at Not on file Legal Sex Female 9:16 AM RETAIL COORDINATOR Gender Identity Not on file Sexual Orientation [...] Every 5 Years 2022 Cervical Cancer Screening [employer] HPV 2022 COVID-19 Vaccine (3 - 2023-2 5 season) 2024 11/02/2021, 10/05/2021 Influenza Adult (#1) 2024 DTaP, Tdap and Td Vaccines ( 2 - Td or Tdap) 11/23/2028 11/23/2018 HPV Vaccines Aged Out No longer eligi ble based on patient's age to complete this topic Meningococcal B Vaccine Aged Out No l onger eligible based on patient's age to complete [...] <14WKS TA+TV Routine 10/28/2024 9: 36 AM RETAIL COORDINATOR High risk case management patient ([facility]/HCC) from Last 3 Months Results * US OB <14WKS TA+TV (10/28/2024 9:36 AM RETAIL COORDINATOR) Anatomical Region Laterality Modality Ultrasound 10/28/2024 4:55 PM RETAIL COORDINATOR Impressions 10/28/2024 5:04 PM RETAIL COORDINATOR IMPRESSION: 1. Enlarged heterogeneous uterus. Endometrial cavity [...] 10/28/2024 4:55 PM Narrative 10/28/2024 5:04 PM RETAIL COORDINATOR [address] [place] [address] EXAM: NONOBSTETRIC PELVIC ULTRASOUND Exam Date: 10/28/2024 [...] Procedure Note Keli Johnson MD - 10/28/[address] [place] [address] EXAM: NONOBSTETRIC PELVIC ULTRASOUND Exam Date: 10/28/2024 [...] clinical correlation with beta hCG and consider irgavm-plovojn-nxfu interval ultrasound to reassess. 2. Nabothian cysts and/or some minimal fluid in endocervical canal. 3. Heterogeneous uterus with focal findings anterior uterine myometrium. Potentially represents subtle fibroid or less likely focal adenomyosis. Ordered By: PAULINE SANCHEZ Interpreted By: Keli Johnson MD, 10/28/2024 4:55 PM us Pauline Sanchez MD ULTRASOUND Final Resu lt from Last 3 Months Insurance Care Teams Fabric Designer Relationship Specialty Start Date End Date Pauline Sanchez MD [address] [place] [phone] PCP - General FAMILY PRACTICE 12/10/23
--- OUTSIDE RECORDS SUMMARY | 2024-12-23 07:13 | XMS_ITS | Clinical Summary ---
Author Organization [facility] Address [address] [place] [address] Phone Care Team Providers Care Sofa Inspector Name Role Phone Bal Foster MD Primary Care Provider [phone] Allergies Active Allergy Reactions Criticality Noted Date Comments Azithromycin Nausea,Palpitations, Vomiting,Other (see Comments) High 08/19/2021 Stomach pain Penicillin G Hives 03/30/2022 [place] Extract Hives,Rash,Itching,S welling High 08/19/2021 Swelling in [...] age to complete this topic Care Teams Sofa Inspector Relationship Specialty Start Date End Date Bal Foster MD PCP - General Family Medicine 08/07/21
[2024-12-23 07:40] LABS: Glucose Fasting Gestational 92 mg/dL (>/=95)
[2024-12-23 09:44] LABS: Glucose 1 Hour Gest 144 mg/dL (>/=180)
[2024-12-23 11:37] LABS: Glucose 3 Hour Gest 66 mg/dL (>/=140)
[2024-12-23 11:39] LABS: Glucose 2 Hour Gest 120 mg/dL (>/= 155)
== END 2024-12-23 07:11 | disposition home or self-care (01) ==
LOC: ANHLAB 07:11
PROVIDERS: PCP Family Medicine; Visit Provider Nurse Practitioner Obstetrics & Gynecology
DX: O99.810 Abnormal glucose complicating pregnancy (principal); Z3A.00 Weeks of gestation of pregnancy not specified
CPT/HCPCS: 36415; 82951; 82952

== ENCOUNTER 2025-02-02 15:23 | Outpatient (CLI) | payer OTHER, SELFPAY ==
--- OUTSIDE RECORDS SUMMARY | 2025-02-02 17:12 | XMS_ITS | Clinical Summary ---
Author Organization [facility] Address [address] [place] [address] Phone Care Team Providers Care Talking Books Library Clerk Name Role Phone Unavailable Primary Care Provider Unavailabl e Allergies Active Allergy Reactions Criticality Noted Date Comments Azithromycin Nausea,Palpitations, Vomiting,Other (see Comments) High 08/19/2021 Stomach pain Penicillin G Hives 03/30/2022 [place] Extract Hives,Rash,Itching,S welling High 08/19/2021 Swelling in [...] 86 03/30/2022 11:49 PM CDT Temperature 37.3 C (99.1 F) 03/30/2022 9:41 PM CDT Respiratory Rate 16 03/30/2022 11:49 PM CDT [...]
--- OUTSIDE RECORDS SUMMARY | 2025-02-02 17:12 | XMS_ITS | Clinical Summary ---
Author Organization [facility] Address [address] [place] [address] Care Team Providers Care Chlorinator Operator Name Role Phone Marce Campbell MD Primary Care Provider [phone] Allergies Active Allergy Reactions Criticality Noted Date [...] the next 5 days. 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 Gender Identity Not on file Sexual Orientation Not on file Last Filed Vital Signs Vital Sign Reading Time Taken Comments Blood Pressure 130/84 09/15/2024 6:30 PM CDT Pulse 86 09/15/2024 6:30 PM CDT Temperature 36.5 C (97.7 F) 09/15/2024 5:20 PM CDT Respiratory Rate 18 09/15/2024 6:30 PM CDT [...] Every 5 Years 2022 Cervical Cancer Screening wi th HPV 2022 COVID-19 Vaccine (3 - 2023-2 [...] on patient's age to complete this topic Insurance [facility] Care Teams Chlorinator Operator Relationship Specialty Start Date End Date Marce Campbell MD [address] [place] [phone] PCP - General FAMILY PRACTICE 12/10/23
--- OUTSIDE RECORDS SUMMARY | 2025-02-02 17:12 | XMS_ITS | Clinical Summary ---
Author Organization 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 Gender Identity Not on file Sexual Orientation Not on file Plan of Treatment Upcoming Encounters Date Type Department Care Team (Late st Contact Info) Description 02/09/2025 12:45 PM CDT Hospital Encounter [facility] [address] [place] [address] Jordan Lowry MD [address] [place] [address] Health Maintenance Due Date Last Done Comments DTAP/TDAP/TD VACCINES (1 - Tdap) 2011 HEPATITIS B VACCINES (1 of 3 - 19+ 3-dose series) 2011 CERVICAL CANCER SCREENING 2022 INFLUENZA VACCINE (#1) 2024 HPV VACCINES Aged Out No longer eligi ble based on patient's age to complete this topic
--- OUTSIDE RECORDS SUMMARY | 2025-02-02 17:12 | XMS_ITS | Continuity of Care Document ---
Author Organization [facility] Address [address] [place] [address] [address] [place] [address] Phone Care Team Providers Care Supervisor Plastics Name Role Phone Monique Guevara OT Unavailable Unavailable Procedures Procedure Date Therapeutic Activities Neuromuscular Re-Ed Therapeutic Exercise Manual Therapy Hot or Cold Pack Therapeutic Activities Neuromuscular Re-Ed Therapeutic Exercise Manual Therapy Hot or Cold Pack Progress Note Therapeutic Activities Neuromuscular Re-Ed Therapeutic Exercise Manual Therapy Hot or Cold Pack Therapeutic Activities Neuromuscular Re-Ed Therapeutic Exercise Manual Therapy Hot or Cold Pack Therapeutic Activities Neuromuscular Re-Ed Therapeutic Exercise Manual Therapy Paraffin Bath Hot or Cold Pack Therapeutic Activities Therapeutic Exercise Neuromuscular Re-Ed Manual Therapy Hot or Cold Pack OT Evaluation Low Complexity Therapeutic Activities Neuromuscular Re-Ed Therapeutic Exercise Manual Therapy Hot or Cold Pack Advance Directives Directive Yes / No Effective Date File Name No Information Encounters Encounter Description Practice Location Reason(s) For Visit Diagnoses Date Provider Providers Copied on Encounter [facility] [address], [place], [place], [id number], tel:[phone] [place] No Information 2 Ismael Amaya. . [facility] [address] [address], [place], [place], [id number], tel:[phone] [place] No Information 2 Ismael Amaya. . Referring Provider: Melinda Rosen [address], [place], [address]. tel:[phone] [place] [address] [address] [address], [place], [place], [id number], tel:[phone] [place] No Information 2 Derek Mattea. . Referring Provider: Melinda Rosen [address], [place], [address]. tel:[phone] [facility] [address] [address], [place], [place], [id number], tel:[phone] [place] No Information 2 Ismael Amaya. . Referring Provider: Melinda Rosen [address], [place], [address]. tel:[phone] [facility] [address] [facility] [address], [place], [place], [id number], [place] tel:[phone] [place] No Information 2 Ismael Amaya. . Referring Provider: Melinda Rosen [facility] [address], [place], [address]. tel:[phone] [facility] [address], [place], [place], [id number], tel:[phone] [place] No Information 2 Ismael Amaya. . Referring Provider: Jose D James, [address], [place], [address] . tel:[phone] [facility], [address] [facility] [address], [place], [place], [id number], tel:[phone] [place] No Information 2 Ismael Amaya. . Referring Provider: Jose D James, [address], [place], [address] . tel:[phone] [facility], [address] [facility] [address], [place], [place], [id number], tel:[phone] [place] No Information 2 Ismael Amaya. . Referring Provider: Jose D James, [address], [place], [address] . tel:[phone] Family History Family Member Type Diagnosis Age At Onset No Information Payers Payer name Insurance type Covered democrat ID Fawad eppersonkimberly(s) [facility] [id number] Social History Type Description Quantity Date Captured Comments Sex Female Smoking Status No Information Chief Complaint And Reason For Visit No Information Reason For Referral Reason For Referral No Information History Of Present Illness Encounter Date Complaint History Of Prese nt Illness No Information Functional Status Date Functional Assessmen t No Information Instructions Date Instruction Additional Infor mation Dietary needs education Related to Overweight Prescribed activity/exercise edu cation Related to Overweight Assessments Type Assessment Date No Information Patient Care Teams Name Effective Dates (start - stop) Status Members No Information
[2025-02-02 17:38] LABS: Hemoglobin A1C 4.8 % (<5.7)
== END 2025-02-02 15:24 | disposition home or self-care (01) ==
LOC: ANHLAB 15:25
PROVIDERS: PCP Family Medicine; Visit Provider Obstetrics & Gynecology
DX: Z34.90 Encounter for supervision of normal pregnancy, unspecified, unspecified trimester (principal); Z3A.00 Weeks of gestation of pregnancy not specified
CPT/HCPCS: 36415; 83036

== ENCOUNTER 2025-03-28 06:55 | Outpatient (CLI) | payer OTHER, SELFPAY ==
--- OUTSIDE RECORDS SUMMARY | 2025-03-28 07:00 | XMS_ITS | Clinical Summary ---
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
--- OUTSIDE RECORDS SUMMARY | 2025-03-28 07:01 | XMS_ITS | Clinical Summary ---
Author Organization [facility] Address [address] [place] [address] Phone Care Team Providers Care Selector Packer Name Role Phone Unavailable Primary Care Provider Unavailabl e Allergies Active Allergy Reactions Criticality Noted Date Comments Azithromycin Nausea,Palpitations, Vomiting,Other (see Comments) High 08/19/2021 Stomach pain Penicillin G Hives 03/30/2022 [place] Extract Hives,Rash,Itching,S welling High 08/19/2021 Swelling in [...]
--- OUTSIDE RECORDS SUMMARY | 2025-03-28 07:01 | XMS_ITS | Clinical Summary ---
Author Organization [facility] Address [address] [place] [address] Phone Care Team Providers Care Parks Recreation Coordinator Name Role Phone Unavailable Primary Care Provider Unavailabl e Encounters Date Type Department Care Team Description 03/09/2025 9:58 AM CDT - 03/09/2025 11:59 PM CDT Hospital Encounter [facility] [address] [place] [id number] Néstor Alvarez MD Discharge Disposition: Home or Self Care 02/14/2025 External Device Data STL ABSTRACTION Provider, Abstract 02/14/2025 External Device Data STL ABSTRACTION Provider, Abstract 02/14/2025 External Device Data STL ABSTRACTION Provider, Abstract 02/09/2025 12:45 PM CDT - 02/09/2025 11:59 PM CDT Hospital Encounter [facility] [address] [place] [id number] Jordan Chang MD Discharge Disposition: Home or Self Care from Last 3 Months Social History Tobacco Use Types Packs/Day Years Used Date Smoking Tobacco: Never Assessed Comments Unknown Sex and Gender Information Value Date Recorded Sex Assigned at Not on file 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 Gender Identity Not on file Sexual Orientation Not on file Plan of Treatment Upcoming Encounters Date Type Department Care Team (Late st Contact Info) Description 04/07/2025 3:30 PM CDT Appointment [facility] Maternal and Ground Floor S Formerly [facility], [facility] [address] [place] [address] Néstor Alvarez MD [address] [facility] [address] [place] [address] Health Maintenance Due Date Last Done Comments DTAP/TDAP/TD VACCINES (1 - Tdap) 2011 HEPATITIS B VACCINES (1 of 3 - 19+ 3-dose series) 2011 HPV/Cotest (21-29) 2013 CERVICAL CANCER SCREENING 2022 HPV/Cotest (30-65) 2022 PAP SMEAR 2022 INFLUENZA VACCINE (#1) 2024 HPV VACCINES Aged Out No longer eligi ble based on patient's age to complete this topic Procedures Procedure Name Priority Date/Time Associated Diagnosis Comments US OB FOLLOW UP PER FETUS Routine 03/09/2025 10:31 AM CDT Maternal obesity syndrome in second trimester US OB 14+ WKS SINGLE GEST Routine 02/09/2025 2:00 PM CDT screening for malformation using ultrasonics from Last 3 Months Results * US OB FOLLOW UP PER FETUS (03/09/2025 10:31 AM CDT) Anatomical Region Laterality Modality Pelvis Ultrasound 03/09/2025 10:0 3 AM CDT Narrative 03/09/2025 10:38 AM CDT STL FOLLOW UP ----- Pat. Name: DOMITILA BASSETT Study Date: 03/09/2025 10:03am Pat. NO: [id number] Referring MD: JORDAN CHANG MD Site: [facility] [employer] As[employer]er: Tarah Ramirez RDMS : 1990 Age: 34 ----- INDICATION ----- Screening Follow-Up Personal History of Other Complications hx pre-e Maternal Obesity (BMI>40) Complicating CODING ----- Diagnoses Z3A.24: Weeks of gestation O99.212: Obesity complicating Z87.59: Personal history of other complications of , childbirth and the puerperium Z36.3: Encounter for screening for malformations Z3A.24: Weeks of gestation O99.212: Obesity complicating Z36.2: Encounter for other screening follow-up Procedures 45471: Ultrasound, uterus, real time with image documentation, follow up, transabdominal approach per fetus HISTORY ----- OB History 2. Para 1 T1L1 MATERNAL ASSESSMENT ----- Physical Exam Weight 118 kg. Initial weight 113 kg, 250 lb. BMI 43.27 kg/m . Initial BMI 41.60 kg/m . Weight gain 5 kg, 10 lb METHOD ----- Transabdominal ultrasound examination ----- Martinez . Number of fetuses: 1 DATING ----- GA by prior assessment 24 w + 0 d SHITAL by prior assessment: 06/29/2025 Ultrasound examination on: 03/09/2025 GA by U/S based upon: AC, BPD, EFW, Femur, HC GA by U/S 23 w + 6 d SHITAL by U/S: 06/30/2025 Method of dating: Restore dating from previous exam Assigned: based on stated SHITAL, selected on 02/09/2025 Assigned GA 24 w + 0 d Assigned SHITAL: 06/29/2025 BIOMETRY ----- BPD 56.8 mm 23w 3d 22% Hadlock OFD 78.0 mm 25w 4d 92% Mauri HC 216.9 mm 23w 5d 23% Hadlock AC 201.2 mm 24w 5d 65% Hadlock Femur 41.1 mm 23w 2d 18% Hadlock HC / AC 1.08 18% Nicolaides Weight Calculation: EFW 656 g 23w 6d 44% Hadlock EFW (lb,oz) 1 lb 7 oz EFW by Hadlock ([id number]) Extremities / Bony Struc Biometry: FL / BPD 0.72 FL / HC 0.19 FL / AC 0.20 GENERAL EVALUATION ----- Cardiac activity present. FHR 146 bpm. movements: present. Presentation: cephalic Placenta: Placental site: posterior, fundal Umbilical cord: Cord vessels: 3 vessel cord. Insertion site: placental insertion: normal Amniotic fluid: Amount of AF: normal amount. MVP 6.1 cm. JOHN 19.5 cm. Q1 6.1 cm, Q2 4.4 cm, Q3 4.6 cm, Q4 4.3 cm ANATOMY ----- The following structures appear normal: Head / Neck Cranium. Lateral ventricles. Choroid plexus. Midline falx. Cavum septi pellucidi. Cerebellum. Cisterna magna. Heart / Thorax 4-chamber view. RVOT view. LVOT view. 3-vessel view. Ductal arch view. High short axis view. Cardiac rhythm. Diaphragm. Abdomen Stomach. Kidneys. Bladder. sex: male. GROWTH OVERVIEW ----- Exam date GA BPD (mm) HC (mm) AC (mm) FL (mm) HL (mm) EFW (g) 02/09/2025 20w 0d 45.9 44% 170.9 28% 153.3 62% 31.3 32% 30.7 61% 332 51% 03/09/2025 24w 0d 56.8 22% 216.9 23% 201.2 65% 41.1 18% 656 44% COMMENT ----- Patient's name and date of were verified by the collateral specialist prior to the exam IMPRESSION ----- Martinez @ 24w 0d referred to complete the anatomy. The is complicated by BMI. - The biometry is consistent with dates with the EFW at the 44% percentile. - Amniotic fluid indices are within normal limits. - Limited anatomy is unremarkable including the previously suboptimal views. A follow up is scheduled in 4 weeks to follow growth. Thank you for allowing us to participate in the care of this patient. Procedure Note Ailyn Montgomery MD - 03/09/2025 STL FOLLOW UP ----- Pat. Name:Nas BASSETT Date:03/09/2025 10:03am Pat. NO: [id number] MD:JORDAN CHANG [facility]Tarah Ramirez RDMS :1990Age:34 ----- INDICATION ----- Screening Follow-Up Personal History of Other Complications hx pre-e Maternal Obesity (BMI>40) Complicating CODING ----- Diagnoses Z3A.24: Weeks of gestation O99.212: Obesity complicating Z87.59: Personal history of other complications ofpregnancy, childbirth and the puerperium Z36.3: Encounter for screening formalformations Z3A.24: Weeks of gestation O99.212: Obesity complicating Z36.2: Encounter for other screeningfollow-up Procedures [id number]: Ultrasound, uterus, real time withimage documentation, follow up, transabdominal approach per fetus HISTORY ----- OB History 2. Para 1 T1L1 MATERNAL ASSESSMENT ----- Physical Exam Weight 118 kg. Initial weight 113 kg, 250 lb. BMI43.27 kg/m . Initial BMI 41.60 kg/m . Weight gain 5 kg, 10 lb METHOD ----- Transabdominal ultrasound examination ----- Martinez . Number of fetuses: 1 DATING ----- GA by prior [id number] w + 0 d SHITAL by prior assessment:06/29/2025 Ultrasound examination on:03/09/2025 GA by U/S based upon:AC, BPD, EFW, Femur, HC GA by U/S23 w + 6 d SHITAL by U/S:06/30/2025 Method of dating:Restore dating from previous exam Assigned:based on stated SHITAL, selected on 02/09/2025 Assigned GA24 w + 0 d Assigned SHITAL:06/29/2025 BIOMETRY ----- BPD 56.8 mm 23w 3d 22%Hadlock OFD 78.0 mm 25w 4d 92%Mauri HC 216.9 mm 23w 5d 23%Hadlock AC 201.2 mm 24w 5d 65%Hadlock Femur 41.1 mm 23w 2d 18%Hadlock HC / AC 1.08 18%Nicolaides Weight Calculation: EFW 656 g 23w 6d 44%Hadlock EFW (lb,oz) 1 lb 7 oz EFW by Hadlock ([id number]-FL) Extremities / Bony Struc Biometry: FL / BPD 0.72 FL / HC 0.19 FL / AC 0.20 GENERAL EVALUATION ----- Cardiac activity present. FHR 146 bpm. movements: present.Presentation: cephalic Placenta: Placental site: posterior, fundal Umbilical cord: Cord vessels: 3 vessel cord. Insertion site: placentalinsertion: normal Amniotic fluid: Amount of AF: normal amount. MVP 6.1 cm. JOHN 19.5 cm. Q16.1 cm, Q2 4.4 cm, Q3 4.6 cm, Q4 4.3 cm ANATOMY ----- The following structures appear normal: Head / Neck Cranium. Lateral ventricles. Choroid plexus.Midline falx. Cavum septi pellucidi. Cerebellum. Cisterna magna. Heart / Thorax 4-chamber view. RVOT view. LVOT view. 3-vesselview. Ductal arch view. High short axis view. Cardiac rhythm. Diaphragm. Abdomen Stomach. Kidneys. Bladder. sex: male. GROWTH OVERVIEW ----- Exam date GA BPD (mm) HC (mm) AC (mm) FL(mm) HL (mm) EFW (g) 02/09/2025 20w 0d 45.9 44% 170.9 28% 153.3 62%31.3 32% 30.7 61% 332 51% 03/09/2025 24w 0d 56.8 22% 216.9 23% 201.2 65%41.1 18% 656 44% COMMENT ----- Patient's name and date of were verified by the collateral specialist prior tothe exam IMPRESSION ----- Martinez @ 24w 0d referred to complete the anatomy. The is complicated by BMI. - The biometry is consistent with dates with the EFW at the 44%percentile. - Amniotic fluid indices are within normal limits. - Limited anatomy is unremarkable including the previouslysuboptimal views. A follow up is scheduled in 4 weeks to follow growth. Thank you for allowing us to participate in the care of this patient. us Néstor Alvarez MD US ORDERABLES Final Re sult * US OB 14+ WKS SINGLE GEST (02/09/2025 2:00 PM CDT) Anatomical Region Laterality Modality Pelvis Ultrasound 02/09/2025 1:00 PM CDT Narrative 02/09/2025 2:13 PM CDT STL COMP ----- Pat. Name: DOMITILA BASSETT Study Date: 02/09/2025 1:00pm Pat. NO: [id number] Referring MD: Site: [facility] [employer] As[employer]er: Letha Almazan RDMS : 1990 Age: 34 ----- INDICATION ----- Anatomy Survey No NIPT Personal History of Other Complications h/o Preeclampsia Maternal Obesity (BMI>40) Complicating CODING ----- Diagnoses Z3A.20: Weeks of gestation O99.212: Obesity complicating Z87.59: Personal history of other complications of , childbirth and the puerperium Z36.3: Encounter for screening for malformations Procedures [id number]: Ultrasound, uterus, real time with image documentation, and maternal evaluation plus detailed anatomic examination, transabdominal approach MATERNAL ASSESSMENT ----- Physical Exam Weight 117 kg. BMI 42.93 kg/m METHOD ----- Transabdominal ultrasound examination ----- Martinez . Number of fetuses: 1 DATING ----- Method of dating: based on stated SHITAL GA by prior assessment 20 w + 0 d SHITAL by prior assessment: 06/29/2025 Ultrasound examination on: 02/09/2025 GA by U/S based upon: AC, BPD, EFW, Femur, HC GA by U/S 20 w + 0 d SHITAL by U/S: 06/29/2025 Assigned: based on stated SHITAL, selected on 02/09/2025 Assigned GA 20 w + 0 d Assigned SHITAL: 06/29/2025 BIOMETRY ----- BPD 45.9 mm 19w 6d 44% Hadlock OFD 60.5 mm 20w 6d 79% Mauri HC 170.9 mm 19w 5d 28% Hadlock Cerebellum tr 21.1 mm 20w 5d 76% Mobley Nuchal fold 5.1 mm AC 153.3 mm 20w 4d 62% Hadlock Femur 31.3 mm 19w 5d 32% Hadlock Humerus 30.7 mm 20w 1d 61% Mauri HC / AC 1.11 15% Nicolaides Weight Calculation: EFW 332 g 20w 0d 51% Hadlock EFW (lb,oz) 0 lb 12 oz EFW by Hadlock ([id number]) Head / Face / Neck Biometry: Polymer Tester 6.2 mm CM 2.8 mm 2% Nicolaides Inner IOD 13.2 mm Nasal 6.1 mm bone Extremities / Bony Struc Biometry: FL / BPD 0.68 32% Hadlock FL / HC 0.18 26% Hadlock FL / AC 0.20 15% Hadlock Tibia 28.5 mm 20w 3d 69% Mauri GENERAL EVALUATION ----- Cardiac activity present. FHR 144 bpm. movements: present. Presentation: cephalic Placenta: Placental site: posterior Umbilical cord: Cord vessels: 3 vessel cord. Insertion site: placental insertion: normal Amniotic fluid: Amount of AF: normal amount. MVP 7.0 cm ANATOMY ----- The following structures appear normal: Head / Neck Cranium. Lateral ventricles. Choroid plexus. Midline falx. Cavum septi pellucidi. Cerebellum. Cisterna magna. Thalami. Nuchal fold. Face Lips. Profile. Nose. Palate. Orbits. Heart / Thorax 4-chamber view. LVOT view. 3-vessel view. 5-kdcajk-cnzuzga view. Situs. Aortic arch view. Superior vena cava. Inferior vena cava. High short axis view. Diaphragm. Abdomen Abdominal wall. Cord insertion. Stomach. Kidneys. Bladder. Genitals. Spine Cervical spine. Thoracic spine. Lumbar spine. Sacral spine. Extremities / Arms. Right hand. Left hand. Legs. Right foot. Left foot. Skeleton The following structures could not be adequately visualized: Heart / Thorax RVOT view. Ductal arch view. sex: male. MATERNAL STRUCTURES ----- Cervix Visualized Approach - Transabdominal: Cervical length 37.3 mm Right Ovary Suboptimal Left Ovary Suboptimal GROWTH OVERVIEW ----- Exam date GA BPD (mm) HC (mm) AC (mm) FL (mm) HL (mm) EFW (g) 02/09/2025 20w 0d 45.9 44% 170.9 28% 153.3 62% 31.3 32% 30.7 61% 332 51% COMMENT ----- Patient's name and date of were verified by the collateral specialist before the exam IMPRESSION ----- Summary of Findings: A detailed anatomic survey was performed. Ultrasound was used to both evaluate structural abnormalities and to evaluate more subtle features of the face and extremities that could indicate aneuploidy. Detailed anatomic survey was performed due to maternal obesity. 1. Single living fetus with gestational age of 20w 0d, (SHITAL = 06/29/2025), based on the reported clinical dates. 2. Detailed anatomic survey is incomplete. No structural abnormalities are identified. RVOT and DA suboptimal. 3. The amniotic fluid volume is normal with maximum vertical pocket of 7 cm. 4. Estimated weight is 332 g (51%ile). 5. Placenta is posterior; no previa. Normal cord insert. 6. Cervical length measurement is 37.3 mm. The presence of a normal anatomic survey does not rule out genetic, chromosomal or structural anomalies. Recommendation: - Follow up ultrasound for growth and completion of anatomic views in 4 weeks. - Serial growths every 4 weeks starting at 28 weeks and twice weekly surveillance starting at 36 weeks due ot maternal BMI unless clinically indicated earlier. Thank you for inviting us to participate in your patient's care. Procedure Note Zari Farias MD - 02/09/2025 STL COMP ----- Pat. Name:Nas BASSETT Date:02/09/2025 1:00pm Pat. NO: [id number] MD: [facility]Letha Almazan RDMS :1990Age:34 ----- INDICATION ----- Anatomy Survey No NIPT Personal History of Other Complications h/o Preeclampsia Maternal Obesity (BMI>40) Complicating CODING ----- Diagnoses Z3A.20: Weeks of gestation O99.212: Obesity complicating Z87.59: Personal history of other complications ofpregnancy, childbirth and the puerperium Z36.3: Encounter for screening formalformations Procedures [id number]: Ultrasound, uterus, real time withimage documentation, and maternal evaluation plus detailed anatomic examination,transabdominal approach MATERNAL ASSESSMENT ----- Physical Exam Weight 117 kg. BMI 42.93 kg/m METHOD ----- Transabdominal ultrasound examination ----- Martinez . Number of fetuses: 1 DATING ----- Method of dating:based on stated SHITAL GA by prior [id number] w + 0 d SHITAL by prior assessment:06/29/2025 Ultrasound examination on:02/09/2025 GA by U/S based upon:AC, BPD, EFW, Femur, HC GA by U/S20 w + 0 d SHITAL by U/S:06/29/2025 Assigned:based on stated SHITAL, selected on 02/09/2025 Assigned GA20 w + 0 d Assigned SHITAL:06/29/2025 BIOMETRY ----- BPD 45.9 mm 19w 6d44% Hadlock OFD 60.5 mm 20w 6d79% Mauri HC 170.9 mm 19w 5d28% Hadlock Cerebellum tr 21.1 mm 20w 5d76% Mobley Nuchal fold 5.1 mm AC 153.3 mm 20w 4d62% Hadlock Femur 31.3 mm 19w 5d32% Hadlock Humerus 30.7 mm 20w 1d61% Mauri HC / AC 1.11 15%Nicolaides Weight Calculation: EFW 332 g 20w 0d 51%Hadlock EFW (lb,oz) 0 lb 12 oz EFW by Hadlock ([id number]) Head / Face / Neck Biometry: Polymer Tester 6.2 mm CM 2.8 mm 2%Nicolaides Inner IOD 13.2 mm Nasal 6.1 mm bone Extremities / Bony Struc Biometry: FL / BPD 0.68 32%Hadlock FL / HC 0.18 26%Hadlock FL / AC 0.20 15%Hadlock Tibia 28.5 mm 20w 3d 69%Mauri GENERAL EVALUATION ----- Cardiac activity present. FHR 144 bpm. movements: present.Presentation: cephalic Placenta: Placental site: posterior Umbilical cord: Cord vessels: 3 vessel cord. Insertion site: placentalinsertion: normal Amniotic fluid: Amount of AF: normal amount. MVP 7.0 cm ANATOMY ----- The following structures appear normal: Head / Neck Cranium. Lateral ventricles. Choroid plexus.Midline falx. Cavum septi pellucidi. Cerebellum. Cisterna magna. Thalami. Nuchal fold. Face Lips. Profile. Nose. Palate. Orbits. Heart / Thorax 4-chamber view. LVOT view. 3-vessel view.9-kkkmmi-zlycwoy view. Situs. Aortic arch view. Superior vena cava. Inferior vena cava. High short axis view. Diaphragm. Abdomen Abdominal wall. Cord insertion. Stomach. Kidneys.Bladder. Genitals. Spine Cervical spine. Thoracic spine. Lumbar spine.Sacral spine. Extremities / Arms. Right hand. Left hand. Legs. Right foot.Left foot. Skeleton The following structures could not be adequately visualized: Heart / Thorax RVOT view. Ductal arch view. sex: male. MATERNAL STRUCTURES ----- Cervix Visualized Approach - Transabdominal: Cervical length 37.3mm Right Ovary Suboptimal Left Ovary Suboptimal GROWTH OVERVIEW ----- Exam date GA BPD (mm) HC (mm) AC (mm) FL(mm) HL (mm) EFW (g) 02/09/2025 20w 0d 45.9 44% 170.9 28% 153.3 62%31.3 32% 30.7 61% 332 51% COMMENT ----- Patient's name and date of were verified by the collateral specialist beforethe exam IMPRESSION ----- Summary of Findings: A detailed anatomic survey was performed.Ultrasound was used to both evaluate structural abnormalities and to evaluate more subtle features of the face andextremities that could indicate aneuploidy. Detailed anatomic survey was performed due to maternal obesity. 1. Single living fetus with gestational age of 20w 0d, (SHITAL = 06/29/2025),based on the reported clinical dates. 2. Detailed anatomic survey is incomplete. No structuralabnormalities are identified. RVOT and DA suboptimal. 3. The amniotic fluid volume is normal with maximum vertical pocket of 7cm. 4. Estimated weight is 332 g (51%ile). 5. Placenta is posterior; no previa. Normal cord insert. 6. Cervical length measurement is 37.3 mm. The presence of a normal anatomic survey does not rule out genetic,chromosomal or structural anomalies. Recommendation: - Follow up ultrasound for growth and completion of anatomic views in 4weeks. - Serial growths every 4 weeks starting at 28 weeks and twice weeklyantenatal surveillance starting at 36 weeks due ot maternal BMI unless clinically indicated earlier. Thank you for inviting us to participate in your patient's care. us Jordan Chang MD ORDERABLES Final Result from Last 3 Months Insurance [facility] [id number]
--- OUTSIDE RECORDS SUMMARY | 2025-03-28 07:01 | XMS_ITS | Continuity of Care Document ---
Author Organization [facility] Address [address] [place] [address] [address] [place] [address] Phone Care Team Providers Care Respiratory Care Technician Name Role Phone Monique Guevara OT Unavailable [...] Bath Hot or Cold Pack Therapeutic Activities Neuromuscular Re-Ed Therapeutic Exercise Manual Therapy Hot or Cold Pack OT Evaluation Low Complexity Therapeutic Activities Neuromuscular Re-Ed Therapeutic Exercise Hot or Cold Pack Manual Therapy Advance Directives Directive Yes / No Effective Date File Name No Information Encounters Encounter Description Practice Location Reason(s) For Visit Diagnoses Date Provider Providers Copied on Encounter [facility] [address], [place], [place], [id number], tel:[phone] Elbert No Information 2 Ismael Amaya. . [facility] [address] [address], [place], [place], [id number], tel:[phone] Elbert No Information 2 Ismael Amaya. . Referring Provider: Melinda Rosen [address], [place], [address]. tel:[phone] [place] [address] [address] [address], [place], [place], [id number], tel:[phone] Elbert No Information 2 Derek Mattea. . Referring Provider: Melinda Rosen [address], [place], [address]. tel:[phone] [facility] [address] [address], [place], [place], [id number], tel:[phone] Elbert No Information 2 Ismael Amaya. . Referring Provider: Melinda Rosen [address], [place], [address]. tel:[phone] [facility] [address], [place], [place], [id number], [place] tel:[phone] Elbert No Information 2 Ismael Amaya. . Referring Provider: Melinda Rosen [address], [place], [address]. tel:[phone] [facility] [address], [place], [place], [id number], tel:[phone] Elbert No Information 2 Ismael Amaya. . Referring Provider: Jose D James, [address], [place], [address] . tel:[phone] [facility], [address] [facility] [address], [place], [place], [id number], tel:[phone] Elbert No Information 2 Ismael Amaya. . Referring Provider: Jose D James, [address], [place], [address] . tel:[phone] [facility], [address], [place], [place], [id number], tel:[phone] Elbert No Information 2 Ismael Amaya. . Referring Provider: Jose D James, [address], [place], [address] . tel:[phone] Family History Family Member Type Diagnosis Age At Onset No Information Payers Payer name Insurance type Covered constitution party ID Fawad eppersonkimberly(s) [facility] [id number] Social History Type Description Quantity Date Captured [...]
--- OUTSIDE RECORDS SUMMARY | 2025-03-28 07:01 | XMS_ITS | Data Portability ---
Author Organization [employer] , [facility] Address [address] [place] [address] Assessment No assessment recorded. Plan of Treatment Reminders Order Date Submit Date Provider Last Modified By Organization Details Last Modified Time Details Appointments None jovany enamorado Lab progest erone, serum 2021 [facility], [address] [place], [address], 18:22:13 estradi ol, serum 2021 [facility], [address] [place], [address], 18:22:14 unliste d lab - anti-mu llerian hormone (amh), female 2021 [facility], [address] [place], [address], 18:22:12 FSH (follic le-stim ulating hormone ), serum 2021 022 [facility], [address] [place], [address], 18:22:13 prolact in, serum 2021 [facility], [address] [place], [address], 18:22:14 TSH + free T4, serum 2021 022 [facility], [address] [place], [address], 18:22:14 testost erone, total, serum 2021 [facility], [address] [place], [address], 18:22:15 dhea-casillas lfate, serum 2021 [facility], [address] [place], [address], 18:22:12 pap, LB 2021 [facility], [address] [place], [address], 21:32:53 HPV E6+E7 mRNA, qualita tive PCR, cervix 2021 [facility], [address] [place] [address], [address], 22:46:23 Referral None recorde d. Procedures None recorde d. Surgeries None recorde d. Imaging None recorde d. Medication Orders None recorde d. Patient TargetsNo targets recorded. Patient Instructions Encounter Date Encounter Id Patient Instructions Last Modified By Organization Details Last Modified Time 04/23/2022 [id number] Order given to patient for to get semen analysis, patient having labs drawn today, after lab results will start patient on provera and letrazole. [email or web address] Not available 04/23/2022 20:10:34 Reason for Referral [...] l cervi neva cytol ogy. Not Available [facility] [address] [place], [address], 04/02/2022 18:30:59 03/12/20 22 03/18/2022 THINP REP TIS PAP clinical information: normal Infor matio n not provi ded Not Available [facility] [address] [address] [place], [address], 03/18/2022 21:32:53 03/12/20 22 03/18/2022 THINP REP TIS PAP LMP: normal Infor matio n not provi ded Not Available [address] [place], [address], 03/18/2022 21:32:53 03/12/20 22 03/18/2022 THINP REP TIS PAP prev. Pap: normal Infor matio n not provi ded Not Available [facility] [address] [address] [place], [address], 03/18/2022 21:32:53 03/12/20 22 03/18/2022 THINP REP TIS PAP prev. BX: normal Infor matio n not provi ded Not Available [address] [place], [address], 03/18/2022 21:32:53 03/12/20 22 03/18/2022 THINP REP TIS PAP source: normal Endoc ervix Not Available [facility] [address] [address] [place], [address], 03/18/2022 21:32:53 03/12/20 22 03/18/2022 THINP REP TIS PAP statement of adequacy: normal Satis facto ry for evalu ation . Endoc ervic al/tr ansfo rmati on zone compo nent prese nt. Age and/o r menst rual statu s not provi ded Not Available [address] [address] [place], [address], 03/18/2022 21:32:53 03/12/20 22 03/18/2022 THINP REP TIS PAP interpretati on/result: normal Negat ekaterina for intra epith elial lesio n or malig elizabeth . Not Available [address] [address] [place], [address], 03/18/2022 21:32:53 03/12/20 22 03/18/2022 THINP REP TIS PAP comment: normal This Pap test has been evalu ated with jimmy tron[employer]o techn ology . Not Available [address] [address] [place], [address], 03/18/2022 21:32:53 03/12/20 22 03/18/2022 THINP REP TIS PAP cytotechnolo gist: normal ABC, CT( CP) CT scree mitchell locat ion: [address] [address] [place] [address] Not Available [address] [address] [place], [address], 03/18/2022 21:32:53 03/12/20 22 03/18/2022 THINP REP [...] clini neva infor matio n. Not Available [address] [address] [place], [address], 03/18/2022 21:32:53 04/23/20 22 04/25/2022 ANTI- MULLE DEREK HORMO NE (AMH) , FEMAL E anti-mulleri an hormone (amh), female 13.51 NG/mL 0.69-1 3.39 high Not Available [address], [address], 04/25/2022 18:22:12 04/23/20 22 04/25/2022 DHEA SULFA TE DHEA sulfate 107 mcg/d L 14-349 normal Not Available [facility] [address] [address] [place], [address], 04/25/2022 18:22:12 04/23/20 22 04/25/2022 FSH FSH 7.1 mIU/m L normal Refer ence Range Folli cular Phase 2.5-1 0.2 Mid-c ycle Peak 3.1-1 7.7 Lutea l Phase 1.5- 9.1 Postm enopa usal 23.0- 116.3 Not Available [facility] [address] [address] [place], [address], 04/25/2022 18:22:13 04/23/20 22 04/25/2022 PROGE STERO NE progesterone 0.5 NG/mL normal Refer ence Range s Femal e Folli cular Phase < 1.0 Lutea l Phase 2.6-2 1.5 Post menop ausal < 0.5 Pregn wendy 1st Trime ster 4.1-3 4.0 2nd Trime ster 24.0- 76.0 3rd Trime ster 52.0- 302.0 Not Available [facility] [address] [address] [place], [address], 04/25/2022 18:22:13 04/23/20 22 04/25/2022 PROLA CTIN prolactin 8.8 NG/mL normal Refer ence Range Femal es Non-p regna nt 3.0-3 0.0 Pregn ant 10.0- 209.0 Postm enopa usal 2.0-2 0.0 Not Available [facility] [address] [place], [address], 04/25/2022 18:22:14 04/23/20 22 04/25/2022 ESTRA DIOL [...] is recom itzel d (orde r code 41859 ). Pleas e note: patie nts being [...] s. [facility] order code 98880 -Estr adiol , Ultra sensi tive LC/MS /MS demon strat es negli gible cross react ivity with fulve stran t. Not Available [facility] [address] [place], [address], 04/25/2022 18:22:14 04/23/20 22 04/25/2022 TSH+F REE T4 TSH 5.18 mIU/L high Refer ence Range > or = 20 Years 0.40- 4.50 Pregn wendy Range s First trime ster 0.26- 2.66 Secon d trime ster 0.55- 2.73 Third trime ster 0.43- 2.91 Not Available [facility] [address] [address], [place], [address], 04/25/2022 18:22:14 04/23/20 22 04/25/2022 TSH+F REE T4 T4, free 1.4 NG/dL 0.8-1. 8 normal Not Available [facility] [address] [address], [place], [address], 04/25/2022 18:22:14 04/23/20 22 04/25/2022 TESTO STERO NE, TOTAL , MS testosterone , total, MS 50 NG/dL 2-45 high For addit ional infor dong mack refer to https ://ed ucati on.Collect.it/f aq/To Regan javed LCMSM S (This link is being provi ded for infor danie nal/e ducat ional purpo ses only. ) (Note ) This test was devel oped and its harjinder tical perfo rmanc e bashir cteri stics have been deter mined by [employer]. It has not been clear ed or appro chery by the FDA. This assay has been valid ated pursu ant to the CLIA regul ation s and is used for clini neva purpo ses. PK samuel [address] [facility] [address] [facility] [address] [phone] Garry sabillon MD Not Available [facility] [address] [address], [place], [address], 04/25/2022 18:22:15 Result Notes None recorded. Procedures Surgical History Date Name Laterality Status Provider Name and Address Organization Details Recorded Time 03/12/2022 Date of Last Pap Smear completed [facility] [employer] 04/23/2022 15:46:12 Knee arthroscopy /surgery completed [facility] 04/23/2022 15:43:25 Imaging Results None recorded. Procedure Notes None recorded. Medical Equipment None Reported. Allergies Allergen ID Allergen Name Allergen Category Reaction Reaction Severity Criticality Documentation Date Start Date Code Code System Note Provider Name and Address Organization Details Recorded Time 143359 latex environme nt,medica tion Not available Not available Not available 03/12/2022 73720 91 RxNorm Tarah child [employer] 2 10:18:11 644919 Product containin g penicilli n (product) medicatio n Not available Not available Not available 03/12/2022 77063 8001 SNOMED Tarah child [employer] 2 10:18:11 942554 azithromy radha medicatio n Not available Not available Not available 03/12/2022 97096 RxNorm Tarah child, [employer] 2 10:18:11 Medications Name Sig Start Date Stop Date [...] Not Available Vitals Date Recorded Body height Body mass index (BMI) Body weight Systolic blood pressure Diastolic blood pressure Provider Name and Address Organization Details Last Updated DateTime 03/12/2022 167.64 cm 47.5 kg/m2 026894.1 6 g 120 mm[Hg] 80 mm[Hg] Tarah Rich [employer] 2 10:32:30 Date Recorded Body height Body mass index (BMI) Body weight Body temperature Systolic blood pressure Diastolic blood pressure Provider Name and Address Organization Details Last Updated DateTime 2 167.64 cm 46.9 kg/m2 531959. 66 g 97.3 [degF] 130 mm[Hg] 78 mm[Hg] Juanis Pennington [employer] 2 15:47:59 Social History Question Answer Notes LastModified by Organizat ion Details LastModified Time Tobacco Smoking Status Never Smoker Tarah Rich mateusz [employer] 03/12/2022 10:18:44 What Is Your Level Of Alcohol Consumption? None [email or web address] Information not available 03/12/2022 Are You Blind Or Do You Have Difficulty Seeing? No [email or web address] Information not available 04/23/2022 Are You Deaf Or Do You Have Serious Difficulty Hearing? No [email or web address] Information not available 04/23/2022 What Type Of Diet Are You Following? REGULAR [email or web address] Information not available 03/12/2022 Do You Or Have You Ever Used E-cigarettes Or Vape? Never Used Electronic Cigarettes [email or web address] Information not available 03/12/2022 How Many Children Do You Have? 1 Information not available 04/23/2022 What Is Your Relationship Status? [email or web address] Information not available 03/12/2022 Are You Sexually Active? Yes [email or web address] Information not available 03/12/2022 Do You Use Any Illicit Or Recreational Drugs? No [email or web address] Information not available 04/23/2022 Do You Or Have You Ever Used Any Other Forms Of Tobacco Or Nicotine? No [email or web address] Information not available 04/23/2022 Sex: Unknown Functional Status Question Answer Note LastModified by Organization D etails LastModified Time What is your exercise level? Moderate [email or web address] Information not available 03/12/2022 Mental Status None recorded. Family History Relationship Description Onset Age of this Age Resolved Age Notes LastModified by Organization Details LastModified Time Paternal Grandfather Hypercholest erolemia [email or web address] Not available 03/12 10:18:16 Paternal Grandfather Heart disease [email or web address] Not available 03/12 10:18:16 Mother Endometriosi s (clinical) [email or web address] Not available 10:18:16 Mother Hyperthyroid ism [email or web address] Not available 03/12 10:18:16 Father Diabetes mellitus [email or web address] Not available 03/12 10:18:16 Father Hypertensive disorder [email or web address] Not available 03/12 10:18:16 Maternal Grandfather Myocardial infarction [email or web address] Not available 02/22 10:18:16 Maternal Grandfather Heart disease [email or web address] Not available 03/12 10:18:16 Paternal Grandmother Malignant neoplastic disease [email or web address] Not available 03/12 10:18:16 Medical History Condition Response Other Cancer N High Blood Pressure N Colon Cancer N Cytomegalovirus N Hyperthyroidism N MRSA N Breast Cancer N Herpes (HSV) N Blood Transfusion N Lung Cancer N Depression N Hypothyroidism N Incontinence N Panic Attacks N Neurological Disorder N Deep Vein Thrombosis N Anxiety Disorder N Autoimmune disease N Arthritis N Tuberculosis/Positive PPD N Shingles N Polycystic Ovarian Syndrome N Cervical Cancer N Hematuria N Chlamydia N Stroke N Varicosities N Seasonal allergies N Crohn's Disease N Alzheimer's/Dementia N COPD/Emphysema N Endometriosis N HPV/Genital Warts N IBS (Irritable Bowel Syndrome) N History [...] SNOMED-CT Code Diagnosis ICD10 Code Diagnosis Note [id number] Radha medellin, CNM [facility] [address] [place] [address] 03/12/2022 09:50:30 03/12/2022 12:56:09 Screening for malignant neoplasm of cervix 318166216 Z12.4 Gynecologi c examination 92312062 Z01.722 [id number] Munira Ng DO [facility] [address] [place] [address] 04/23/2022 15:31:58 04/23/2022 16:27:25 Reproductive care management 177405106 Z31.9 Health Concerns Section Related Observation LastModified by Organization Detai ls LastModified Time None Recorded Concern Status LastModified by Organization Details LastModified Time None Recorded Advance Directives Directive None Recorded Payers Encounter Date Sequence Insurance Name Policy Number Policy Cummings Covered Member ID Cummings Member ID Guarantor Name 03/12/2022 1 [place] [id number] Domitila [id number] Domitila Shepard 04/23/2022 1 [place] [id number] Domitila Shepard [id number] Domitila Shepard Notes Date Note Type [...] menses since June 2021. Her is Srinivas Ryaniott MARIIA 11/13/1993, patient states that he had a low semen count during her first . Munira Ng DO [address], [place], [address], [facility] 04/23/2022 20:10:56 OBGyn Episode No OBEpisode recorded.
[2025-03-28 07:30] LABS: Hematocrit 34.8 % (37.0-47.0); Hemoglobin 11.5 g/dL (12.0-15.0); Mean Corpuscular Hemoglobin 30.1 pg (26-34); Mean Corpuscular Volume 91.1 fl (80-100); Mean Platelet Volume 10.5 fl (7.4-10.4); Platelet Count Result 278 k/mm3 (150-375); Red Blood Count 3.82 M/mm3 (4.2-5.4); Red Cell Distribution Width 13.6 % (11.5-14.5); White Blood Count 9.8 K/mm3 (4.5-10.0)
[2025-03-28 07:40] LABS: Glucose Fasting Gestational 94 mg/dL (>/=95)
[2025-03-28 09:15] LABS: Glucose 1 Hour Gest 193 mg/dL (>/=180)
[2025-03-28 10:11] LABS: Glucose 2 Hour Gest 133 mg/dL (>/= 155)
[2025-03-28 11:18] LABS: Glucose 3 Hour Gest 93 mg/dL (>/=140)
== END 2025-03-28 06:56 | disposition home or self-care (01) ==
LOC: ANHLAB 06:57
PROVIDERS: PCP Family Medicine; Visit Provider Nurse Practitioner Family
DX: Z34.90 Encounter for supervision of normal pregnancy, unspecified, unspecified trimester (principal)
CPT/HCPCS: 36415; 82951; 82952; 85027

== ENCOUNTER 2025-04-14 15:24 | Outpatient (CLI) | payer OTHER, SELFPAY ==
--- NOTE | ~2025-04-14 | US_ITS ---
EXAM EXAMINATION: US OB follow up DATE: 04/14/2025 16:03 CDT INDICATION: Growth COMPARISON: 11/03/2024 TECHNIQUE: Real-time transabdominal obstetric ultrasound. FINDINGS: 2 para 1 There is a single intrauterine gestation in vertex presentation. The placenta is centered within the fundus. The cervix measures 4.51 cm in length on the submitted images. cardiac activity and movement is noted with a heart rate of 135 beats per minute. The following biometric data were obtained: Biparietal diameter (BPD): 7.4 cm; head circumference (HC): 27 cm; abdominal circumference (AC): 25 cm; femur length (FL): 5.5 cm. These measurements are concordant. Estimated weight is 1322 g +/- 198.3 g, which correlates with the 24th percentile when 06/28/2025 is used as estimated date of delivery. As single measurements, these parameters are each equal to the following estimated gestational ages: BPD: 29 weeks 4 days. HC: 29 weeks 5 days. AC: 28 weeks 6 days. FL: 28 weeks 6 days. estimated gestational age based solely on measurements from this exam is 29 weeks 2 days +/- 2 weeks 0 days. IMPRESSION: Single intrauterine gestation in vertex presentation with cardiac activity identified. Estimated weight correlates with the 24th percentile. Approximate gestational age is 29 weeks and 2 days Reviewed, dictated and finalized at location A. IMPRESSION: Single intrauterine gestation in vertex presentation with cardiac activit y identified. Estimated weight correlates with the 24th percentile. Approximate gestational age is 29 weeks and 2 days
== END 2025-04-14 15:25 | disposition home or self-care (01) ==
LOC: MICIMG 15:25
PROVIDERS: PCP Obstetrics & Gynecology; Visit Provider Obstetrics & Gynecology
DX: O99.210 Obesity complicating pregnancy, unspecified trimester (principal); Z3A.00 Weeks of gestation of pregnancy not specified
CPT/HCPCS: 76816

== ENCOUNTER 2025-04-29 20:53 | Outpatient (CLI) | payer OTHER, SELFPAY ==
--- OUTSIDE RECORDS SUMMARY | 2025-04-29 20:57 | XMS_ITS | Continuity of Care Document ---
Author Organization [employer] [facility] Address [address] [place] [address] [address] [place] [address] Phone Care Team Providers Care Enterprise Account Manager Name Role Phone Monique Burger OT Unavailable Unavailable Procedures Procedure Date Therapeutic [...] Diagnoses Date Provider Providers Copied on Encounter [facility] [address], [place], [place], [id number], tel:[phone] [place] No Information 2 Jennyfer Amaya. . [facility] [address] [address], [place], [place], [id number], tel:[phone] [place] No Information 2 Jennyfer Amaya. . Referring Provider: Melinda Rosen [address], [place], [address]. tel:[phone] [place] [address] [address] [address], [place], [place], [id number], tel:[phone] [place] No Information 2 Derek Mattea. . Referring Provider: Melinda Rosen [address], [place], [address]. tel:[phone] [facility] [address] [address], [place], [place], [id number], tel:[phone] [place] No Information 2 Jennyfer Amaya. . Referring Provider: Melinda Rosen [address], [place], [address]. tel:[phone] [facility] [address] [facility] [address] [facility], [place], [place], [id number], [place] tel:[phone] [place] No Information 2 Jennyfer Amaya. . Referring Provider: Melinda Rosen [facility] [address], [place], [address]. tel:[phone] [facility] [address], [place], [place], [id number], tel:[phone] [place] No Information 2 Jennyfer Monique. . Referring Provider: Jose D James, [address], [place], [address] . tel:[phone] [facility], [address] [facility] [address], [place], [place], [address], tel:[phone] [place] No Information 2 Jennyfer Amaya. . Referring Provider: Jose D James, [address], [place], [address] . tel:[phone] [facility], [address] [facility] [address], [place], [place], [id number], tel:[phone] [place] No Information 2 Jennyfer Amaya. . Referring Provider: Jose D James, [address], [place], [address] . tel:[phone] Family History Family Member Type Diagnosis Age At Onset No Information Payers Payer name Insurance type Covered constitution party ID Fawad eppersonkimbrely(s) [facility] [id number] Social History Type Description Quantity Date Captured [...]
[2025-04-29 21:20] VITALS: BP 136/83; PULSE 83
[2025-04-29 21:25] VITALS: BMI 42.0
[2025-04-29 21:28] LABS: Basophils Percent Auto 0.3 % (0.2-1.2); Eosinophils Absolute Auto 0.1 K/mm3 (0-0.3); Eosinophils Percent Auto 0.8 % (0-4.4); Hematocrit 36.2 % (37.0-47.0); Hemoglobin 12.1 g/dL (12.0-15.0); Immature Granulocyte Absolute 0.18 K/mm3 (0.00-0.031); Immature Granulocyte Percent A 1.5 % (0-0.5); Lymphocytes Percent Auto 17.5 % (18.3-44.2); Mean Corpuscular HGB Conc 33.4 g/dl (32-36); Mean Corpuscular Hemoglobin 29.9 pg (26-34); Mean Corpuscular Volume 89.4 fl (80-100); Mean Platelet Volume 10.5 fl (7.4-10.4); Monocytes Absolute Auto 0.7 K/mm3 (0.1-0.6); Monocytes Percent Auto 6.1 % (2.6-8.5); Neutrophils Absolute Auto 8.8 K/mm3 (1.3-6.7); Neutrophils Percent Auto 73.8 % (45.5-73.1); Platelet Count Result 296 k/mm3 (150-375); Red Blood Count 4.05 M/mm3 (4.2-5.4); Red Cell Distribution Width 13.4 % (11.5-14.5)
[2025-04-29 21:30] LABS: Add Urine Microscopic? NO; Appearance Urine Clear (Clear); Bilirubin Urine Negative (Negative); Blood Urine Negative (Negative); Color Urine Yellow (Yellow); Glucose Urine UA Negative (Negative); Ketones Urine Negative (Negative); Leukocyte Esterase Ur Negative LEU/UL (Negative); Nitrate Urine Negative (Negative); Protein Urine Negative (Negative); Specific Grav Ur 1.009 (1.001-1.035); Urobilinogen Urine 0.2 mg/dL (<2.0)
[2025-04-29 21:31] VITALS: BP 124/75; PULSE 79
[2025-04-29 21:36] LABS: Creatinine Urine 55.9 mg/dL; Total Protein Urine Random 17 mg/dL
[2025-04-29 21:37] LABS: Alanine Aminotransferase 30 U/L (6-35); Alkaline Phosphatase 75 U/L (38-126); Anion Gap 12 mmol/L (4-12); Aspartate Amino Transferase 29 U/L (14-36); Bilirubin,Total 0.7 mg/dL (0.2-1.3); Blood Urea Nitrogen 8 mg/dL (7-17); Calcium 9.6 mg/dL (8.4-10.2); Carbon Dioxide 18 mmol/L (22-30); Chloride 104 mmol/L (98-107); Estimated CRCL calculation 159 ml/min; Estimated Glomerular Filt Rate > 60; Glucose 106 mg/dL (65-110); Potassium 3.7 mmol/L (3.4-5.0); Sodium 134 mmol/L (137-145); Total Protein 7.5 g/dL (6.3-8.2); Uric Acid 5.1 mg/dL (2.5-7.5)
[2025-04-29 21:46] VITALS: BP 120/74; PULSE 79
--- NOTE | 2025-04-29 21:51 | PM.OBTRLD ---
OB - Triage/Final Diagnosis Visit Information Comments/Additional reasons for admission: I have assessed the risk for this patient, Domitila Shepard, and determined that she would benefit from observation care. Evaluation Laboratory results: Laboratory Tests 04/29/25 21:07 WBC 12.0 H RBC 4.05 L Hgb 12.1 Hct 36.2 L MCV 89.4 MCH 29.9 MCHC 33.4 RDW 13.4 Plt Count 296 MPV 10.5 H Immature Gran % (Auto) 1.5 H Neut % (Auto) 73.8 H Lymph % (Auto) 17.5 L [place] % (Auto) 6.1 Eos % (Auto) 0.8 Baso % (Auto) 0.3 Lymph # (Auto) 2.10 [place] # (Auto) 0.7 H Eos # (Auto) 0.1 Baso # (Auto) 0.0 Abs Immat Gran (auto) 0.18 H Absolute Neuts (auto) 8.8 H Absolute Nucleated RBC 0.000 Nucleated RBC % 0.0 Sodium 134 L Potassium 3.7 Chloride 104 Carbon Dioxide 18 L Anion Gap 12 BUN 8 Creatinine 0.56 L Estim Creat Clear Calc 159 Estimated GFR > 60 Glucose 106 Uric Acid 5.1 Calcium 9.6 Total Bilirubin 0.7 AST 29 ALT 30 Alkaline Phosphatase 75 Total Protein 7.5 Albumin 4.0 Urine Color Yellow Urine Appearance Clear Urine pH 7.0 Ur Specific [place] 1.009 Urine Protein Negative Urine Glucose (UA) Negative Urine Ketones Negative Ur Blood (Man) Negative Urine Nitrate Negative Urine Bilirubin Negative Urine Urobilinogen 0.2 Leukocyte Esterase Rfl Negative U Random Total Protein 17 Urine Creatinine 55.9 Protein/Creat Ratio 2 0.30 H Vital signs: Vital Signs - 24 hr 04/29/25 21:20 04/29/25 21:31 04/29/25 21:46 Pulse Rate 83 79 79 Blood Pressure 136/83 124/75 120/74 Final Diagnosis (1) Pre-eclampsia: Code(s): O14.90 - Unspecified pre-eclampsia, unspecified trimester Status: Acute Plan: - 24 hour urine ordered, encouraged to start tomorrow so results will be ready at her f/u OB appt 05/04/25
--- NOTE | 2025-04-29 22:05 | PC.NURSE ---
Pt discharged home undelivered in stable condition per order from Dr. Palm. Pt instructed on how to perform 24 hour urine and where to return with 24 hr urine, all supplies given. labor precautions reviewed with pt. Pt stated understanding, all questions and concerns answered, Pt ambulated out of department with all belongings.
== END 2025-04-29 22:05 | disposition home or self-care (01) ==
LOC: ANHOBOP 20:56 → ANHOBPP 21:49
PROVIDERS: Obstetrics & Gynecology; PCP Family Medicine; Visit Provider Obstetrics & Gynecology
DX: O13.9 Gestational [pregnancy-induced] hypertension without significant proteinuria, unspecified trimester (principal); Z3A.00 Weeks of gestation of pregnancy not specified
CPT/HCPCS: 36415; 80053; 81003; 82570; 84156; 84550; 85025; 99199

== ENCOUNTER 2025-05-01 10:45 | Outpatient (CLI) | payer OTHER, SELFPAY ==
[2025-05-01 10:55] VITALS: BMI 42.0
[2025-05-01 12:23] LABS: Collection Time Urine 24 HOURS
--- OUTSIDE RECORDS SUMMARY | 2025-05-01 12:40 | XMS_ITS | Data Portability ---
Author Organization [facility] , [facility] Address [address] [place] [address] Assessment No assessment recorded. Plan of Treatment Reminders Order Date Submit Date Provider Last Modified By Organization Details Last Modified Time Details Appointments None jovany enamorado Lab progest erone, serum 2021 [facility], [address] [place], [address], 18:22:13 estradi ol, serum 2021 [facility], [address] [place], [address], 18:22:14 unliste d lab - anti-mu llerian hormone (amh), female 2021 [facility], [address] [place], [address], 18:22:12 FSH (follic le-stim ulating hormone ), serum 2021 022 [facility], [address] [place], [address], 18:22:13 prolact in, serum 2021 [facility], [address] [place], [address], 18:22:14 TSH + free T4, serum 2021 022 [facility], [address] [place], [address], 18:22:14 testost erone, total, serum 2021 [facility], [address] [place], [address], 18:22:15 dhea-casillas lfate, serum 2021 [facility], [address] [place], [address], 18:22:12 pap, LB 2021 [facility], [address] [place], [address], 21:32:53 HPV E6+E7 mRNA, qualita tive PCR, cervix 2021 [facility], [address] [place] [address], [address], 22:46:23 Referral None recorde d. Procedures None recorde d. Surgeries None recorde d. Imaging None recorde d. Medication Orders None recorde d. Patient TargetsNo targets recorded. Patient Instructions Encounter Date Encounter Id Patient Instructions Last Modified By Organization Details Last Modified Time 04/23/2022 [id number] Order given to patient for to get semen analysis, patient having labs drawn today, after lab results will start patient on provera and letrazole. [email or web address] Not available 04/23/2022 20:10:34 Reason for Referral [...] l cervi neva cytol ogy. Not Available [facility] [address] [place], [address], 04/02/2022 18:30:59 03/12/20 22 03/18/2022 THINP REP TIS PAP clinical information: normal Infor matio n not provi ded Not Available [facility] [address] [address] [place], [address], 03/18/2022 21:32:53 03/12/20 22 03/18/2022 THINP REP TIS PAP LMP: normal Infor matio n not provi ded Not Available [address] [place], [address], 03/18/2022 21:32:53 03/12/20 22 03/18/2022 THINP REP TIS PAP prev. Pap: normal Infor matio n not provi ded Not Available [facility] [address] [address] [place], [address], 03/18/2022 21:32:53 03/12/20 22 03/18/2022 THINP REP TIS PAP prev. BX: normal Infor matio n not provi ded Not Available [address] [place], [address], 03/18/2022 21:32:53 03/12/20 22 03/18/2022 THINP REP TIS PAP source: normal Endoc ervix Not Available [facility] [address] [address] [place], [address], 03/18/2022 21:32:53 03/12/20 22 03/18/2022 THINP REP TIS PAP statement of adequacy: normal Satis facto ry for evalu ation . Endoc ervic al/tr ansfo rmati on zone compo nent prese nt. Age and/o r menst rual statu s not provi ded Not Available [address] [address] [place], [address], 03/18/2022 21:32:53 03/12/20 22 03/18/2022 THINP REP TIS PAP interpretati on/result: normal Negat ekaterina for intra epith elial lesio n or malig elizabeth . Not Available [address] [address] [place], [address], 03/18/2022 21:32:53 03/12/20 22 03/18/2022 THINP REP TIS PAP comment: normal This Pap test has been evalu ated with jimmy troncoso techn ology . Not Available [address] [address] [place], [address], 03/18/2022 21:32:53 03/12/20 22 03/18/2022 THINP REP TIS PAP cytotechnolo gist: normal ABC, CT( CP) CT scree mitchell locat ion: [address] [address] [place] [address] Not Available [address] [address] [place], [address], 03/18/2022 21:32:53 03/12/20 22 03/18/2022 THINP REP [...] clini neva infor matio n. Not Available [address] [address] [place], [address], 03/18/2022 21:32:53 04/23/20 22 04/25/2022 ANTI- MULLE DEREK HORMO NE (AMH) , FEMAL E anti-mulleri an hormone (amh), female 13.51 NG/mL 0.69-1 3.39 high Not Available [address], [address], 04/25/2022 18:22:12 04/23/20 22 04/25/2022 DHEA SULFA TE DHEA sulfate 107 mcg/d L 14-349 normal Not Available [facility] [address] [address] [place], [address], 04/25/2022 18:22:12 04/23/20 22 04/25/2022 FSH FSH 7.1 mIU/m L normal Refer ence Range Folli cular Phase 2.5-1 0.2 Mid-c ycle Peak 3.1-1 7.7 Lutea l Phase 1.5- 9.1 Postm enopa usal 23.0- 116.3 Not Available [facility] [address] [address] [place], [address], 04/25/2022 18:22:13 04/23/20 22 04/25/2022 PROGE STERO NE progesterone 0.5 NG/mL normal Refer ence Range s Femal e Folli cular Phase < 1.0 Lutea l Phase 2.6-2 1.5 Post menop ausal < 0.5 Pregn wendy 1st Trime ster 4.1-3 4.0 2nd Trime ster 24.0- 76.0 3rd Trime ster 52.0- 302.0 Not Available [facility] [address] [address] [place], [address], 04/25/2022 18:22:13 04/23/20 22 04/25/2022 PROLA CTIN prolactin 8.8 NG/mL normal Refer ence Range Femal es Non-p regna nt 3.0-3 0.0 Pregn ant 10.0- 209.0 Postm enopa usal 2.0-2 0.0 Not Available [facility] [address] [place], [address], 04/25/2022 18:22:14 04/23/20 22 04/25/2022 ESTRA DIOL [...] sensi tive, LCMSM S assay is recom iztel d (orde r code 68291 ). Pleas e note: patie nts being [...] s. [facility] order code 58223 -Estr adiol , Ultra sensi tive LC/MS /MS demon strat es negli gible cross react ivity with fulve stran t. Not Available [facility] [address] [place], [address], 04/25/2022 18:22:14 04/23/20 22 04/25/2022 TSH+F REE T4 TSH 5.18 mIU/L high Refer ence Range > or = 20 Years 0.40- 4.50 Pregn wendy Range s First trime ster 0.26- 2.66 Secon d trime ster 0.55- 2.73 Third trime ster 0.43- 2.91 Not Available [facility] [address] [address], [place], [address], 04/25/2022 18:22:14 04/23/20 22 04/25/2022 TSH+F REE T4 T4, free 1.4 NG/dL 0.8-1. 8 normal Not Available [facility] [address] [address], [place], [address], 04/25/2022 18:22:14 04/23/20 22 04/25/2022 TESTO STERO NE, TOTAL , MS testosterone , total, MS 50 NG/dL 2-45 high For addit ional infor dong mack refer to https ://ed ucati on[employer]/f aq/To Regan javed LCMSM S (This link is being provi ded for infor danie nal/e ducat ional purpo ses only. ) (Note ) This test was devel oped and its harjinder tical perfo rmanc e bashir cteri stics have been deter mined by [employer]. It has not been clear ed or appro chery by the FDA. This assay has been valid ated pursu ant to the CLIA regul ation s and is used for clini neva purpo ses. PK samuel [address] [facility] [address] [facility] [address] [phone] Garry sabillon MD Not Available [facility] [address] [address], [place], [address], 04/25/2022 18:22:15 Result Notes None recorded. Procedures Surgical History Date Name Laterality Status Provider Name and Address Organization Details Recorded Time 03/12/2022 Date of Last Pap Smear completed [facility] 04/23/2022 15:46:12 Knee arthroscopy /surgery completed [facility] 04/23/2022 15:43:25 Imaging Results None recorded. Procedure Notes None recorded. Medical Equipment None Reported. Allergies Allergen ID Allergen Name Allergen Category Reaction Reaction Severity Criticality Documentation Date Start Date Code Code System Note Provider Name and Address Organization Details Recorded Time 776021 latex environme nt,medica tion Not available Not available Not available 03/12/2022 81017 91 RxNorm Tarah child [facility] 2 10:18:11 481407 Product containin g penicilli n (product) medicatio n Not available Not available Not available 03/12/2022 40080 8001 SNOMED Tarah child [facility] 2 10:18:11 995486 azithromy radha medicatio n Not available Not available Not available 03/12/2022 15170 RxNorm Tarah child, [facility] 2 10:18:11 Medications Name Sig Start Date [...] Updated DateTime 03/12/2022 167.64 cm 47.5 kg/m2 228619.1 6 g 120 mm[Hg] 80 mm[Hg] Tarah Rich [facility] IV 2 10:32:30 Date Recorded Body height Body mass index (BMI) Body weight Body temperature Systolic blood pressure Diastolic blood pressure Provider Name and Address Organization Details Last Updated DateTime 2 167.64 cm 46.9 kg/m2 183639. 66 g 97.3 [degF] 130 mm[Hg] 78 mm[Hg] Juanis Pennington [facility] IV 2 15:47:59 Social History Question Answer Notes LastModified by Cabeo Details LastModified Time Tobacco Smoking Status Never Smoker Tarah Rich [facility] 03/12/2022 10:18:44 Are You Blind Or Do You Have Difficulty Seeing? No [email or web address] Information not available 04/23/2022 Are You Deaf Or Do You Have Serious Difficulty Hearing? No Information not available 04/23/2022 What Type Of Diet Are You Following? REGULAR [email or web address] Information not available 03/12/2022 How Many Children Do You Have? 1 [email or web address] Information not available 04/23/2022 What Is Your Relationship Status? [email or web address] Information not available 03/12/2022 Are You Sexually Active? Yes [email or web address] Information not available 03/12/2022 Sex: Unknown Functional Status Question Answer Note LastModified by Cabeo Details LastModified Time Do you use any illicit or recreational drugs? No [email or web address] Information not available 04/23/2022 Do you or have you ever used any other forms of tobacco or nicotine? No [email or web address] Information not available 04/23/2022 What is your level of alcohol consumption? None [email or web address] Information not available 03/12/2022 Do you or have you ever used e-cigarettes or vape? Never used electronic cigarettes [email or web address] Information not available 03/12/2022 What is your exercise level? Moderate [email or web address] Information not available 03/12/2022 Mental Status None recorded. Family History Relationship Description Onset Age of this Age Resolved Age Notes LastModified by Organization Details LastModified Time Paternal Grandfather Hypercholest erolemia [email or web address] Not available 03/12 10:18:16 Paternal Grandfather Heart disease [email or web address] Not available 03/12 10:18:16 Mother Endometriosi s (clinical) [email or web address] Not available 10:18:16 Mother Hyperthyroid ism Not available 03/12 10:18:16 Father Diabetes mellitus [email or web address] Not available 03/12 10:18:16 Father Hypertensive disorder [email or web address] Not available 03/12 10:18:16 Maternal Grandfather Myocardial infarction [email or web address] Not available 02/22 10:18:16 Maternal Grandfather Heart disease [email or web address] Not available 03/12 10:18:16 Paternal Grandmother Malignant neoplastic disease Not available 03/12 10:18:16 Medical History Condition [...] SNOMED-CT Code Diagnosis ICD10 Code Diagnosis Note [id number] Radha medellin, [facility] [address] [place] [address] 03/12/2022 09:50:30 03/12/2022 12:56:09 Screening for malignant neoplasm of cervix 206998251 Z12.4 Gynecologi c examination 33008716 Z01.373 [id number] Munira Ng DO [facility] [address] [place] [address] 04/23/2022 15:31:58 04/23/2022 16:27:25 Reproductive care management 285171519 Z31.9 Health Concerns Section Related Observation LastModified by Organization Detai ls LastModified Time None Recorded Concern Status LastModified by Organization Details LastModified Time None Recorded Advance Directives Directive None Recorded Payers Insurance Date Sequence Insurance Name Policy Number Policy Cummings Covered Member ID Cummings Member ID Guarantor Name 04/23/2022 1 [facility] [id number] Domitila Shepard [id number] Domitila Shepard Notes Date Note Type [...] low semen count during her first . Muniar Ng DO [address] [facility], [place], [address], [facility] 04/23/2022 20:10:56 OBGyn Episode No OBEpisode recorded.
--- OUTSIDE RECORDS SUMMARY | 2025-05-01 12:40 | XMS_ITS | Clinical Summary ---
Author Organization [facility] Address [address] [place] [address] Phone Care Team Providers Care Flat Surfacer Name Role Phone Unavailable Primary Care Provider Unavailabl e Allergies Active Allergy Reactions Criticality Noted Date Comments Azithromycin Nausea,Palpitations, Vomiting,Other (see Comments) High 08/19/2021 Stomach pain Penicillin G Hives 03/30/2022 Eden Extract Hives,Rash,Itching,S welling High 08/19/2021 Swelling in [...] 9:41 PM CDT Height 167.6 cm (5' 6) 03/30/2022 9:41 PM CDT Body Mass Index 46.81 03/30/2022 9:41 PM CDT Plan of Treatment Health Maintenance Due Date Last Done Comments Hepatitis C Virus (HCV) Screening 1990 TdaP Immunization 1992 Hepatitis B Immunization (1 of 3 - 19+ 3-dose series) 2011 Pap Smear 2013 Cervical Cancer Screening (CCS) 2022 HPV/Cotest 2022 SARS-COV-2 Immunization (3 - 2023- season) 2024 11/02/2021, 10/05/2021 Influenza Immunization (Seas on Ended) 2025 Respiratory Syncytial Virus (RSV) Immunization (Adult) (1 - 1-dose 75+ series) 2067 Human Papillomavirus (HPV) Immunization Aged Out No longer eligible b ased on patient's age to complete this topic Meningococcal Immunization (ACWY) Aged Out No longer eligible b ased on patient's age to complete this topic Pneumococcal Immunization Combined Aged Out No longer eligible b ased on patient's age to complete this topic Rotavirus Immunization Aged Out No lo nger eligible based on patient's age to complete this topic
--- OUTSIDE RECORDS SUMMARY | 2025-05-01 12:40 | XMS_ITS | Clinical Summary ---
Author Organization [facility] Address [address] [place] [address] Phone Care Team Providers Care Casing Blower Name Role Phone Unavailable Primary Care Provider Unavailabl e Encounters Date Type Department Care Team Description 03/09/2025 9:58 AM CDT - 03/09/2025 11:59 PM CDT Hospital Encounter [facility] [address] [place] [address] Néstor Alvarez MD Discharge Disposition: Home or Self Care 02/14/2025 External Device Data STL ABSTRACTION Provider, Abstract 02/14/2025 External Device Data STL ABSTRACTION Provider, Abstract 02/14/2025 External Device Data STL ABSTRACTION Provider, Abstract 02/09/2025 12:45 PM CDT - 02/09/2025 11:59 PM CDT Hospital Encounter [facility] [address] [place] [address] Jordan Chang MD Discharge Disposition: Home or Self Care from Last 3 Months Social History Tobacco Use Types Packs/Day Years Used Date Smoking Tobacco: Never Assessed Comments Unknown Sex and Gender Information Value Date Recorded Sex Assigned at Not on file 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 NO: [id number] Referring MD: JORDAN CHANG MD Site: [facility] Perforator: Tarah Ramirez RDMS : 1990 Age: 34 [...] Z36.2: Encounter for other screening follow-up Procedures 84295: Ultrasound, uterus, real time with image documentation, [...] 1 lb 7 oz EFW by Hadlock ([id number]) Extremities / Bony Struc Biometry: FL / [...] and date of were verified by the hospice manager prior to the exam IMPRESSION ----- Martinez [...] Pat. Name:Nas BASSETT Date:03/09/2025 10:03am Pat. NO: [id number] MD:JORDAN CHANG [facility] RDMS :1990Age:34 ----- INDICATION ----- Screening Follow-Up Personal History of Other Complications hx pre-e Maternal Obesity (BMI>40) Complicating CODING ----- Diagnoses Z3A.24: Weeks of gestation O99.212: Obesity complicating Z87.59: Personal history of other complications ofpregnancy, childbirth and the puerperium Z36.3: Encounter for screening formalformations Z3A.24: Weeks of gestation O99.212: Obesity complicating Z36.2: Encounter for other screeningfollow-up Procedures 50290: Ultrasound, uterus, real time withimage documentation, follow [...] fetuses: 1 DATING ----- GA by prior [id number] w + 0 d SHITAL by prior [...] 1 lb 7 oz EFW by Hadlock ([id number]) Extremities / Bony Struc Biometry: FL / [...] and date of were verified by the hospice manager prior tothe exam IMPRESSION ----- Martinez @ [...] BASSETT Study Date: 02/09/2025 1:00pm Pat. NO: [id number] Referring MD: Site: [facility] Per[facility]ator: Letha Almazan RDMS : 1990 Age: 34 ----- INDICATION ----- Anatomy Survey No NIPT Personal History of Other Complications h/o Preeclampsia Maternal Obesity (BMI>40) Complicating CODING ----- Diagnoses Z3A.20: Weeks of gestation O99.212: Obesity complicating Z87.59: Personal history of other complications of , childbirth and the puerperium Z36.3: Encounter for screening for malformations Procedures 79891: Ultrasound, uterus, real time with image documentation, and maternal evaluation plus detailed anatomic examination, transabdominal approach MATERNAL ASSESSMENT ----- Physical Exam Weight 117 kg. BMI 42.93 kg/m METHOD ----- Transabdominal ultrasound examination ----- Amrtinez . Number of fetuses: 1 DATING ----- [...] 0 lb 12 oz EFW by Hadlock ([id number]) Head / Face / Neck Biometry: [employer] Lead 6.2 mm CM 2.8 mm 2% Nicolaides [...] Thorax 4-chamber view. LVOT view. 3-vessel view. 0-whdqlc-idkcjjr view. Situs. Aortic arch view. Superior vena [...] and date of were verified by the hospice manager before the exam IMPRESSION ----- Summary of [...] Pat. Name:Nas BASSETT Date:02/09/2025 1:00pm Pat. NO: [id number] MD: [facility]Letha Almazan RDMS :1990Age:34 ----- INDICATION ----- Anatomy Survey No NIPT Personal History of Other Complications h/o Preeclampsia Maternal Obesity (BMI>40) Complicating CODING ----- Diagnoses Z3A.20: Weeks of gestation O99.212: Obesity complicating Z87.59: Personal history of other complications ofpregnancy, childbirth and the puerperium Z36.3: [facility] 06[facility]: Ultrasound, uterus, real time withimage documentation, and maternal evaluation plus detailed anatomic examination,transabdominal approach MATERNAL ASSESSMENT ----- Physical Exam Weight 117 kg. BMI 42.93 kg/m METHOD ----- Transabdominal ultrasound examination ----- Martinez . Number of fetuses: 1 DATING ----- Method of dating:based on stated SHITAL GA by prior [id number] w + 0 d SHITAL by prior [...] 0 lb 12 oz EFW by Hadlock ([id number]) Head / Face / Neck Biometry: [employer] Crew Lead 6.2 mm CM 2.8 mm 2%Nicolaides Inner [...] / Thorax 4-chamber view. LVOT view. 3-vessel view.8-ahbwsh-gjmhify view. Situs. Aortic arch view. Superior vena [...] and date of were verified by the hospice manager beforethe exam IMPRESSION ----- Summary of Findings: [...] your patient's care. us Jordan Chang MD US ORDERABLES Final Result from Last 3 Months Insurance [facility] [id number]
[2025-05-01 12:50] LABS: Total Protein Urine Random 14 mg/dL
[2025-05-01 12:51] LABS: Creatinine Urine 51.2 mg/dL; Patient Weight 260 Lbs; Serum Creat 0.56
[2025-05-01 13:05] LABS: Specific Gravity Ur 1.015; Total Protein Urine 24 Hr 574 mg/24hr (28-141); Total Volume 24 Hour Urine 4100 ml
[2025-05-01 13:07] LABS: Creatinine Clearance Urine 202.1 ml/min (75-125); Total Volume 24 Hour Urine 4100 ml
== END 2025-05-01 10:46 | disposition home or self-care (01) ==
LOC: ANHOBOP 11:08
PROVIDERS: PCP Family Medicine; Visit Provider Obstetrics & Gynecology
DX: Z34.90 Encounter for supervision of normal pregnancy, unspecified, unspecified trimester (principal)
CPT/HCPCS: 81050; 82575; 84156

== ENCOUNTER 2025-05-02 10:25 | Outpatient (CLI) | payer OTHER, SELFPAY ==
--- OUTSIDE RECORDS SUMMARY | 2025-05-02 11:32 | XMS_ITS | Clinical Summary ---
Author Organization [facility] Address [address] [place] [address] Phone Care Team Providers Care Security Shift Manager Name Role Phone Unavailable Primary Care Provider Unavailabl e Allergies Active Allergy Reactions Criticality Noted Date Comments Azithromycin Nausea,Palpitations, Vomiting,Other (see Comments) High 08/19/2021 Stomach pain Penicillin G Hives 03/30/2022 [place] Extract Hives,Rash,Itching,S welling High 08/19/2021 Swelling in [...]
--- OUTSIDE RECORDS SUMMARY | 2025-05-02 11:32 | XMS_ITS | Clinical Summary ---
Author Organization [facility] Address [address] [place] [phone] Phone Care Team Providers Care Emergency Management Consultant Name Role Phone Unavailable Primary Care Provider Unavailabl e Encounters Date Type Department Care Team Description 03/09/2025 9:58 AM CDT - 03/09/2025 11:59 PM CDT Hospital Encounter [facility] [address] [place] [address] Néstor Alvarez MD Discharge Disposition: Home or Self Care 02/14/2025 External Device Data STL ABSTRACTION Provider, Abstract 02/14/2025 External Device Data STL ABSTRACTION Provider, Abstract 02/14/2025 External Device Data STL ABSTRACTION Provider, Abstract 02/09/2025 12:45 PM CDT - 02/09/2025 11:59 PM CDT Hospital Encounter [facility] [address] [place] [address] Jordan Chang MD Discharge Disposition: Home or Self Care from Last 3 Months Social History Tobacco Use Types Packs/Day Years Used Date Smoking Tobacco: Never Assessed Comments Unknown Sex and Gender Information Value Date Recorded Sex Assigned at Not on file 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 NO: [id number] Referring MD: JORDAN CHANG MD Site: [place] Voltage Inspector: Tarah Ramirez RDMS : 1990 Age: 34 [...] Z36.2: Encounter for other screening follow-up Procedures 00148: Ultrasound, uterus, real time with image documentation, [...] 1 lb 7 oz EFW by Hadlock ([id number]) Extremities / Bony Struc Biometry: FL / [...] and date of were verified by the senior product engineer prior to the exam IMPRESSION ----- Martinez [...] Pat. Name:Nas BASSETT Date:03/09/2025 10:03am Pat. NO: [id number] MD:JORDAN CHANG [facility] RDMS :1990Age:34 ----- INDICATION ----- Screening Follow-Up Personal History of Other Complications hx pre-e Maternal Obesity (BMI>40) Complicating CODING ----- Diagnoses Z3A.24: Weeks of gestation O99.212: Obesity complicating Z87.59: Personal history of other complications ofpregnancy, childbirth and the puerperium Z36.3: Encounter for screening formalformations Z3A.24: Weeks of gestation O99.212: Obesity complicating Z36.2: Encounter for other screeningfollow-up Procedures 89338: Ultrasound, uterus, real time withimage documentation, follow [...] fetuses: 1 DATING ----- GA by prior [id number] w + 0 d SHITAL by prior [...] 1 lb 7 oz EFW by Hadlock ([id number]) Extremities / Bony Struc Biometry: FL / [...] and date of were verified by the senior product engineer prior tothe exam IMPRESSION ----- Martinez @ [...] BASSETT Study Date: 02/09/2025 1:00pm Pat. NO: [id number] Referring MD: Site: [place] Voltage Inspector: Letha Almazan RDMS : 1990 Age: 34 ----- INDICATION ----- Anatomy Survey No NIPT Personal History of Other Complications h/o Preeclampsia Maternal Obesity (BMI>40) Complicating CODING ----- Diagnoses Z3A.20: Weeks of gestation O99.212: Obesity complicating Z87.59: Personal history of other complications of , childbirth and the puerperium Z36.3: Encounter for screening for malformations Procedures 84056: Ultrasound, uterus, real time with image documentation, [...] 0 lb 12 oz EFW by Hadlock ([id number]) Head / Face / Neck Biometry: Electrical Unit Rebuilder 6.2 mm CM 2.8 mm 2% Nicolaides [...] Thorax 4-chamber view. LVOT view. 3-vessel view. 7-koybqt-atoddvo view. Situs. Aortic arch view. Superior vena [...] and date of were verified by the senior product engineer before the exam IMPRESSION ----- Summary of [...] Pat. Name:Nas BASSETT Date:02/09/2025 1:00pm Pat. NO: [id number] MD: [facility]Letha Almazan RDMS :1990Age:34 ----- INDICATION ----- Anatomy Survey No NIPT Personal History of Other Complications h/o Preeclampsia Maternal Obesity (BMI>40) Complicating CODING ----- Diagnoses Z3A.20: Weeks of gestation O99.212: Obesity complicating Z87.59: Personal history of other complications ofpregnancy, childbirth and the puerperium Z36.3: [facility] 736[facility]: Ultrasound, uterus, real time withimage documentation, and maternal evaluation plus detailed anatomic examination,transabdominal approach MATERNAL ASSESSMENT ----- Physical Exam Weight 117 kg. BMI 42.93 kg/m METHOD ----- Transabdominal ultrasound examination ----- Martinez . Number of fetuses: 1 DATING ----- Method of dating:based on stated SHITAL GA by prior [email or web address] w + 0 d SHITAL by prior [...] 0 lb 12 oz EFW by Hadlock ([id number]) Head / Face / Neck Biometry: Electrical Unit Rebuilder 6.2 mm CM 2.8 mm 2%Nicolaides Inner [...] / Thorax 4-chamber view. LVOT view. 3-vessel view.3-rnmlzq-vjiixlq view. Situs. Aortic arch view. Superior vena [...] and date of were verified by the senior product engineer beforethe exam IMPRESSION ----- Summary of Findings: [...] Final Result from Last 3 Months Insurance [facility] [id number]
[2025-05-02 11:50] LABS: Syphilis IgG/IgM Antibody Non-Reactive (Nonreactive)
[2025-05-02 12:00] LABS: HIV 1/2 Ab P24 Ag Result Negative (Negative)
== END 2025-05-02 10:26 | disposition home or self-care (01) ==
LOC: ANHLAB 10:28
PROVIDERS: PCP Family Medicine; Visit Provider Nurse Practitioner Family
DX: Z34.90 Encounter for supervision of normal pregnancy, unspecified, unspecified trimester (principal)
CPT/HCPCS: 36415; 86593; 86703; G0432

== ENCOUNTER 2025-05-11 11:29 | Outpatient (CLI) | payer OTHER, SELFPAY ==
[2025-05-11 12:08] VITALS: BMI 44.0
[2025-05-11 12:09] VITALS: BP 115/63
[2025-05-11 12:16] VITALS: BP 115/63; PULSE 79
[2025-05-11 12:16] LABS: Add Urine Microscopic? NO; Appearance Urine Clear (Clear); Bilirubin Urine Negative (Negative); Blood Urine Negative (Negative); Color Urine Yellow (Yellow); Glucose Urine UA Negative (Negative); Ketones Urine Negative (Negative); Leukocyte Esterase Ur Negative LEU/UL (Negative); Nitrate Urine Negative (Negative); Protein Urine Negative (Negative); Urobilinogen Urine 0.2 mg/dL (<2.0); pH Urine 7.5 (5.0-9.0)
[2025-05-11 12:18] LABS: Basophils Percent Auto 0.3 % (0.2-1.2); Eosinophils Absolute Auto 0.1 K/mm3 (0-0.3); Eosinophils Percent Auto 0.7 % (0-4.4); Hematocrit 37.7 % (37.0-47.0); Hemoglobin 12.4 g/dL (12.0-15.0); Immature Granulocyte Absolute 0.12 K/mm3 (0.00-0.031); Immature Granulocyte Percent A 1.1 % (0-0.5); Lymphocytes Absolute Auto 1.57 K/mm3 (0.9-3.2); Lymphocytes Percent Auto 13.9 % (18.3-44.2); Mean Corpuscular HGB Conc 32.9 g/dl (32-36); Mean Corpuscular Hemoglobin 29.5 pg (26-34); Mean Corpuscular Volume 89.8 fl (80-100); Mean Platelet Volume 10.9 fl (7.4-10.4); Monocytes Absolute Auto 0.5 K/mm3 (0.1-0.6); Monocytes Percent Auto 4.5 % (2.6-8.5); Neutrophils Percent Auto 79.5 % (45.5-73.1); Platelet Count Result 305 k/mm3 (150-375); Red Cell Distribution Width 13.6 % (11.5-14.5); White Blood Count 11.3 K/mm3 (4.5-10.0)
[2025-05-11 12:22] LABS: Total Protein Urine Random 13 mg/dL
--- OUTSIDE RECORDS SUMMARY | 2025-05-11 12:27 | XMS_ITS | Clinical Summary ---
Author Organization [facility] Address [address] [place] [address] Phone Care Team Providers Care Certified Detention Deputy Name Role Phone Unavailable Primary Care Provider Unavailabl e Allergies Active Allergy Reactions Criticality Noted Date Comments Azithromycin Nausea,Palpitations, Vomiting,Other (see Comments) High 08/19/2021 Stomach pain Penicillin G Hives 03/30/2022 [place] Extract Hives,Rash,Itching,S welling High 08/19/2021 Swelling in [...]
--- OUTSIDE RECORDS SUMMARY | 2025-05-11 12:27 | XMS_ITS | Clinical Summary ---
Author Organization [facility] Address [address] [place] [phone] Phone Care Team Providers Care Environmental Health Officer Name Role Phone Unavailable Primary Care Provider Unavailabl e Encounters Date Type Department Care Team Description 03/09/2025 9:58 AM CDT - 03/09/2025 11:59 PM CDT Hospital Encounter [facility] [address] [place] [address] Néstor Alvarez MD Discharge Disposition: Home or Self Care 02/14/2025 External Device Data [facility] ABSTRACTION Provider, Abstract 02/14/2025 External Device Data ST[place] ABSTRACTION Provider, Abstract 02/14/2025 External Device Data ST[place] ABSTRACTION Provider, Abstract 02/09/2025 12:45 PM CDT - 02/09/2025 11:59 PM CDT Hospital Encounter [facility] [address] [place] [address] Jordan Chang MD Discharge Disposition: Home or Self Care from Last 3 Months Social History Tobacco Use Types Packs/Day Years Used Date Smoking Tobacco: Never Assessed Comments Unknown Sex and Gender Information Value Date Recorded Sex Assigned at Not on file 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 NO: [id number] Referring MD: JORDAN CHANG MD Site: [place] Apprentice Plumber: Tarah Ramirez RDMS : 1990 Age: 34 [...] Z36.2: Encounter for other screening follow-up Procedures 11400: Ultrasound, uterus, real time with image documentation, [...] 1 lb 7 oz EFW by Hadlock ([id number]) Extremities / Bony Struc Biometry: FL / [...] and date of were verified by the dredge hand prior to the exam IMPRESSION ----- Martinez [...] Pat. Name:Nas BASSETT Date:03/09/2025 10:03am Pat. NO: [id number] MD:JORDAN CHANG MD [facility]arah Ramirez RDMS :1990Age:34 ----- INDICATION ----- Screening Follow-Up Personal History of Other Complications hx pre-e Maternal Obesity (BMI>40) Complicating CODING ----- Diagnoses Z3A.24: Weeks of gestation O99.212: Obesity complicating Z87.59: Personal history of other complications ofpregnancy, childbirth and the puerperium Z36.3: Encounter for screening formalformations Z3A.24: Weeks of gestation O99.212: Obesity complicating Z36.2: Encounter for other screeningfollow-up Procedures 07733: Ultrasound, uterus, real time withimage documentation, follow [...] fetuses: 1 DATING ----- GA by prior w + 0 d SHITAL by prior [...] 1 lb 7 oz EFW by Hadlock ([id number]) Extremities / Bony Struc Biometry: FL / [...] and date of were verified by the dredge hand prior tothe exam IMPRESSION ----- Martinez @ [...] BASSETT Study Date: 02/09/2025 1:00pm Pat. NO: [id number] Referring MD: Site: [place] Apprentice Plumber: Letha Almazan RDMS : 1990 Age: 34 ----- INDICATION ----- Anatomy Survey No NIPT Personal History of Other Complications h/o Preeclampsia Maternal Obesity (BMI>40) Complicating CODING ----- Diagnoses Z3A.20: Weeks of gestation O99.212: Obesity complicating Z87.59: Personal history of other complications of , childbirth and the puerperium Z36.3: Encounter for screening for malformations Procedures 53755: Ultrasound, uterus, real time with image documentation, [...] 0 lb 12 oz EFW by Hadlock ([id number]) Head / Face / Neck Biometry: Winch Stripper 6.2 mm CM 2.8 mm 2% Nicolaides [...] Thorax 4-chamber view. LVOT view. 3-vessel view. 5-kjtkqm-woqpuvj view. Situs. Aortic arch view. Superior vena [...] and date of were verified by the dredge hand before the exam IMPRESSION ----- Summary of [...] Pat. Name:Nas BASSETT Date:02/09/2025 1:00pm Pat. NO: [id number] MD: [facility]:Letha Almazan RDMS :1990Age:34 ----- INDICATION ----- Anatomy Survey No NIPT Personal History of Other Complications h/o Preeclampsia Maternal Obesity (BMI>40) Complicating CODING ----- Diagnoses Z3A.20: Weeks of gestation O99.212: Obesity complicating Z87.59: Personal history of other complications ofpregnancy, childbirth and the puerperium Z36.3: [facility] 7[facility]: Ultrasound, uterus, real time withimage documentation, and maternal evaluation plus detailed anatomic examination,transabdominal approach MATERNAL ASSESSMENT ----- Physical Exam Weight 117 kg. BMI 42.93 kg/m METHOD ----- Transabdominal ultrasound examination ----- Martinez . Number of fetuses: 1 DATING ----- Method of dating:based on stated SHITAL GA by prior [id number] w + 0 d SHITAL by prior [...] 0 lb 12 oz EFW by Hadlock ([id number]) Head / Face / Neck Biometry: Winch Stripper 6.2 mm CM 2.8 mm 2%Nicolaides Inner [...] / Thorax 4-chamber view. LVOT view. 3-vessel view.1-zebebn-tucvcqn view. Situs. Aortic arch view. Superior vena [...] and date of were verified by the dredge hand beforethe exam IMPRESSION ----- Summary of Findings: [...] Final Result from Last 3 Months Insurance [facility] [id number]
[2025-05-11 12:30] LABS: Alanine Aminotransferase 33 U/L (6-35); Albumin Level 4.1 g/dL (3.5-5.1); Alkaline Phosphatase 82 U/L (38-126); Anion Gap 10 mmol/L (4-12); Aspartate Amino Transferase 35 U/L (14-36); Bilirubin,Total 0.8 mg/dL (0.2-1.3); Blood Urea Nitrogen 8 mg/dL (7-17); Calcium 10.1 mg/dL (8.4-10.2); Carbon Dioxide 21 mmol/L (22-30); Chloride 102 mmol/L (98-107); Estimated CRCL calculation 148 ml/min; Estimated Glomerular Filt Rate > 60; Glucose 96 mg/dL (65-110); Potassium 4.1 mmol/L (3.4-5.0); Sodium 133 mmol/L (137-145); Total Protein 7.9 g/dL (6.3-8.2); Uric Acid 4.7 mg/dL (2.5-7.5)
[2025-05-11 12:31] VITALS: BP 119/66; PULSE 79
[2025-05-11 12:39] VITALS: BP 115/66; PULSE 76
[2025-05-11 12:39] LABS: Creatinine Urine 48.7 mg/dL; Ur Ttl Prot Creatinine Ratio 0.27 mg/mg (0-0.20)
== END 2025-05-11 12:51 | disposition home or self-care (01) ==
LOC: ANHOBOP 11:40 → ANHOBPP 11:42
PROVIDERS: PCP Family Medicine; Visit Provider Obstetrics & Gynecology
DX: O13.9 Gestational [pregnancy-induced] hypertension without significant proteinuria, unspecified trimester (principal); Z3A.00 Weeks of gestation of pregnancy not specified
CPT/HCPCS: 36415; 59025; 80053; 81003; 82570; 84156; 84550; 85025; 99199

== ENCOUNTER 2025-05-12 15:17 | Outpatient (NON) | payer OTHER, SELFPAY ==
[2025-05-12 15:37] VITALS: BMI 44.0
[2025-05-12 16:17] LABS: Collection Time Urine 24 HOURS
[2025-05-12 16:21] LABS: Total Volume 24 Hour Urine 4100 ml
[2025-05-12 16:22] LABS: Total Volume 24 Hour Urine 4100 ml
[2025-05-12 16:30] LABS: Total Protein Urine 24 Hr 533 mg/24hr (28-141); Total Protein Urine Random 13 mg/dL
[2025-05-12 16:31] LABS: Creatinine Clearance Urine 211.3 ml/min (75-125); Creatinine Urine 57.1 mg/dL; Patient Weight 264 Lbs
[2025-05-12 16:33] LABS: Specific Gravity Ur 1.015
== END 2025-05-12 15:18 | disposition home or self-care (01) ==
LOC: ANHOBOP 15:31
PROVIDERS: PCP Family Medicine; Visit Provider Obstetrics & Gynecology
DX: O13.9 Gestational [pregnancy-induced] hypertension without significant proteinuria, unspecified trimester (principal); Z3A.00 Weeks of gestation of pregnancy not specified
CPT/HCPCS: 81050; 82575; 84156

== ENCOUNTER 2025-06-08 10:28 | Outpatient (RCR) | payer OTHER, SELFPAY ==
[2025-05-04 11:11] LABS: Hematocrit 34.1 % (37.0-47.0); Hemoglobin 11.4 g/dL (12.0-15.0); Immature Granulocyte Percent A 1.3 % (0-0.5); Lymphocytes Absolute Auto 1.48 K/mm3 (0.9-3.2); Mean Corpuscular HGB Conc 33.4 g/dl (32-36); Mean Corpuscular Hemoglobin 29.8 pg (26-34); Mean Corpuscular Volume 89.3 fl (80-100); Nucleated Red Blood Cells Absolute Auto 0.000 K/mm3 (0.0-0.012); Nucleated Red Blood Cells Perc 0.0 % (0.0-0.2); Platelet Count Result 277 k/mm3 (150-375); Red Blood Count 3.82 M/mm3 (4.2-5.4); White Blood Count 9.9 K/mm3 (4.5-10.0)
[2025-05-04 11:17] LABS: Add Urine Microscopic? YES; Appearance Urine Cloudy (Clear); Glucose Urine UA Negative (Negative); Leukocyte Esterase Ur 2+ LEU/UL (Negative); Nitrate Urine Negative (Negative); Non Pathogenic Casts 0-2; Specific Grav Ur 1.017 (1.001-1.035)
[2025-05-04 11:20] LABS: Total Protein Urine Random 15 mg/dL; Ur Ttl Prot Creatinine Ratio 0.12 mg/mg (0-0.20)
[2025-05-04 11:23] LABS: Alanine Aminotransferase 31 U/L (6-35); Albumin Level 3.9 g/dL (3.5-5.1); Alkaline Phosphatase 75 U/L (38-126); Anion Gap 9 mmol/L (4-12); Aspartate Amino Transferase 42 U/L (14-36); Bilirubin,Total 0.8 mg/dL (0.2-1.3); Blood Urea Nitrogen 7 mg/dL (7-17); Calcium 9.3 mg/dL (8.4-10.2); Carbon Dioxide 21 mmol/L (22-30); Chloride 103 mmol/L (98-107); Estimated Glomerular Filt Rate > 60; Glucose 105 mg/dL (65-110); Potassium 4.0 mmol/L (3.4-5.0); Sodium 133 mmol/L (137-145); Total Protein 7.2 g/dL (6.3-8.2); Uric Acid 4.7 mg/dL (2.5-7.5)
--- OUTSIDE RECORDS SUMMARY | 2025-05-04 11:35 | XMS_ITS | Clinical Summary ---
Author Organization [facility] Address [address] [place] [address] Phone Care Team Providers Care Account Leader Name Role Phone Unavailable Primary Care Provider Unavailabl e Allergies Active Allergy Reactions Criticality Noted Date Comments Azithromycin Nausea,Palpitations, Vomiting,Other (see Comments) High 08/19/2021 Stomach pain Penicillin G Hives 03/30/2022 [place] Extract Hives,Rash,Itching,S welling High 08/19/2021 Swelling in [...]
--- OUTSIDE RECORDS SUMMARY | 2025-05-04 11:35 | XMS_ITS | Data Portability ---
Author Organization [facility] , [facility] Address [address] [place] [address] Assessment No assessment recorded. Plan of Treatment Reminders Order Date Submit Date Provider Last Modified By Organization Details Last Modified Time Details Appointments None jovany enamorado Lab progest erone, serum 2021 [facility], [address] [place], [address], 18:22:13 estradi ol, serum 2021 [facility], [address] [place], [address], 18:22:14 unliste d lab - anti-mu llerian hormone (amh), female 2021 [facility], [address] [place], [address], 18:22:12 FSH (follic le-stim ulating hormone ), serum 2021 022 [facility], [address] [place], [address], 18:22:13 prolact in, serum 2021 [facility], [address] [place], [address], 18:22:14 TSH + free T4, serum 2021 022 [facility], [address] [place], [address], 18:22:14 testost erone, total, serum 2021 [facility], [address] [place], [address], 18:22:15 dhea-casillas lfate, serum 2021 [facility], [address] [place], [address], 18:22:12 pap, LB 2021 [facility], [address] [place], [address], 21:32:53 HPV E6+E7 mRNA, qualita tive PCR, cervix 2021 [facility], [address] [place] [address], [address], 22:46:23 Referral None recorde d. Procedures None recorde d. Surgeries None recorde d. Imaging None recorde d. Medication Orders None recorde d. Patient TargetsNo targets recorded. Patient Instructions Encounter Date Encounter Id Patient Instructions Last Modified By Organization Details Last Modified Time 04/23/2022 [id number] Order given to patient for to get semen analysis, patient having labs drawn today, after lab results will start patient on provera and letrazole. Not available 04/23/2022 20:10:34 Reason for Referral [...] ogy. Not Available [facility] [address] [place], [address], 04/02/2022 18:30:59 03/12/20 22 03/18/2022 THINP REP TIS PAP clinical information: normal Infor matio n not provi ded Not Available [facility] [place] [address] [place], [address], 03/18/2022 21:32:53 03/12/20 22 03/18/2022 THINP REP TIS PAP LMP: normal Infor matio n not provi ded Not Available [address] [place] [place], [address], 03/18/2022 21:32:53 03/12/20 22 03/18/2022 THINP REP TIS PAP prev. Pap: normal Infor matio n not provi ded Not Available [facility] [place] [address] [place], [address], 03/18/2022 21:32:53 03/12/20 22 03/18/2022 THINP REP TIS PAP prev. BX: normal Infor matio n not provi ded Not Available [address] [place], [address], 03/18/2022 21:32:53 03/12/20 22 03/18/2022 THINP REP TIS PAP source: normal Endoc ervix Not Available [facility] [place] [address] [place], [address], 03/18/2022 21:32:53 03/12/20 22 03/18/2022 THINP REP TIS PAP statement of adequacy: normal Satis facto ry for evalu ation . Endoc ervic al/tr ansfo rmati on zone compo nent prese nt. Age and/o r menst rual statu s not provi ded Not Available [place] [address] [place], [address], 03/18/2022 21:32:53 03/12/20 22 03/18/2022 THINP REP TIS PAP interpretati on/result: normal Negat ekaterina for intra epith elial lesio n or malig elizabeth . Not Available [place] [address] [place], [address], 03/18/2022 21:32:53 03/12/20 22 03/18/2022 THINP REP TIS PAP comment: normal This Pap test has been evalu ated with jimmy troncoso techn ology . Not Available [place] [address] [place], [address], 03/18/2022 21:32:53 03/12/20 22 03/18/2022 THINP REP TIS PAP cytotechnolo gist: normal ABC, CT( CP) CT scree [place] locat ion: [place] [address] [place] [address] Not Available [place] [address] [place], [address], 03/18/2022 21:32:53 03/12/20 22 03/18/2022 THINP REP [...] clini neva infor matio n. Not Available [place] [address] [place], [address], 03/18/2022 21:32:53 04/23/20 22 04/25/2022 ANTI- MULLE DEREK HORMO NE (AMH) , FEMAL E anti-mulleri an hormone (amh), female 13.51 NG/mL 0.69-1 3.39 high Not Available [address], [address], 04/25/2022 18:22:12 04/23/20 22 04/25/2022 DHEA SULFA TE DHEA sulfate 107 mcg/d L 14-349 normal Not Available [facility] [place] [address] [place], [address], 04/25/2022 18:22:12 04/23/20 22 04/25/2022 FSH FSH 7.1 mIU/m L normal Refer ence Range Folli cular Phase 2.5-1 0.2 Mid-c ycle Peak 3.1-1 7.7 Lutea l Phase 1.5- 9.1 Postm enopa usal 23.0- 116.3 Not Available [facility] [place] [address] [place], [address], 04/25/2022 18:22:13 04/23/20 22 04/25/2022 PROGE STERO NE progesterone 0.5 NG/mL normal Refer ence Range s Femal e Folli cular Phase < 1.0 Lutea l Phase 2.6-2 1.5 Post menop ausal < 0.5 Pregn wendy 1st Trime ster 4.1-3 4.0 2nd Trime ster 24.0- 76.0 3rd Trime ster 52.0- 302.0 Not Available [facility] [place] [address] [place], [address], 04/25/2022 18:22:13 04/23/20 22 04/25/2022 PROLA CTIN prolactin 8.8 NG/mL normal Refer ence Range Femal es Non-p regna nt 3.0-3 0.0 Pregn ant 10.0- 209.0 Postm enopa usal 2.0-2 0.0 Not Available [facility] [address] [place], [address], 04/25/2022 18:22:14 04/23/20 22 04/25/2022 ESTRA DIOL [...] is recom itzel d (orde r code 43713 ). Pleas e note: patie nts being [...] s. [facility] order code 89289 -Estr adiol , Ultra sensi tive LC/MS /MS demon strat es negli gible cross react ivity with fulve stran t. Not Available [facility] [address] [place], [address], 04/25/2022 18:22:14 04/23/20 22 04/25/2022 TSH+F REE T4 TSH 5.18 mIU/L high Refer ence Range > or = 20 Years 0.40- 4.50 Pregn wendy Range s First trime ster 0.26- 2.66 Secon d trime ster 0.55- 2.73 Third trime ster 0.43- 2.91 Not Available [facility] [address], [place], [address], 04/25/2022 18:22:14 04/23/20 22 04/25/2022 TSH+F REE T4 T4, free 1.4 NG/dL 0.8-1. 8 normal Not Available [facility] [address], [place], [address], 04/25/2022 18:22:14 04/23/20 22 04/25/2022 TESTO STERO NE, TOTAL , MS testosterone , total, MS 50 NG/dL 2-45 high For addit ional infor dong mack refer to https ://ed ucati on.SSP [place]/f aq/To Regan javed LCMSM S (This link is being provi ded for infor danie nal/e ducat ional purpo ses only. ) (Note ) This test was devel oped and its harjinder tical perfo rmanc e bashir cteri stics have been deter mined by [employer]. It has not been clear ed or appro chery by the FDA. This assay has been valid ated pursu ant to the CLIA regul ation s and is used for clini neva purpo ses. PK samuel [address] [facility] [address] [facility] [address] [phone] Garry sabillon MD Not Available [facility] [address], [place], [address], 04/25/2022 18:22:15 Result Notes None recorded. Procedures Surgical History Date Name Laterality Status Provider Name and Address Organization Details Recorded Time 03/12/2022 Date of Last Pap Smear completed [facility] 04/23/2022 15:46:12 Knee arthroscopy /surgery completed [facility] 04/23/2022 15:43:25 Imaging Results None recorded. Procedure Notes None recorded. Medical Equipment None Reported. Allergies Allergen ID Allergen Name Allergen Category Reaction Reaction Severity Criticality Documentation Date Start Date Code Code System Note Provider Name and Address Organization Details Recorded Time 570955 latex environme nt,medica tion Not available Not available Not available 03/12/2022 95369 91 RxNorm Tarah child [facility] 10:18:11 743093 Product containin g penicilli n (product) medicatio n Not available Not available Not available 03/12/2022 84273 8001 SNOMED Tarah child [facility] 2 10:18:11 037671 azithromy radha medicatio n Not available Not available Not available 03/12/2022 23704 RxNorm Tarah child, [facility] 10:18:11 Medications Name Sig Start Date [...] Updated DateTime 03/12/2022 167.64 cm 47.5 kg/m2 364105.1 6 g 120 mm[Hg] 80 mm[Hg] Tarah Rich [facility] 2 10:32:30 Date Recorded Body height Body mass index (BMI) Body weight Body temperature Systolic blood pressure Diastolic blood pressure Provider Name and Address Organization Details Last Updated DateTime 2 167.64 cm 46.9 kg/m2 424643. 66 g 97.3 [degF] 130 mm[Hg] 78 mm[Hg] Juanis Pennington [facility] 2 15:47:59 Social History Question Answer Notes LastModified by IPICO Details LastModified Time Tobacco Smoking Status Never Smoker Tarah Rich [facility] 03/12/2022 10:18:44 Are You Blind Or Do You Have Difficulty Seeing? No [email or web address] Information not available 04/23/2022 Are You Deaf Or Do You Have Serious Difficulty Hearing? No [email or web address] Information not available 04/23/2022 What Type Of Diet Are You Following? REGULAR [email or web address] Information not available 03/12/2022 How Many Children Do You Have? 1 Information not available 04/23/2022 What Is Your Relationship Status? [email or web address] Information not available 03/12/2022 Are You Sexually Active? Yes [email or web address] Information not available 03/12/2022 Sex: Unknown Functional Status Question Answer Note LastModified by IPICO Details LastModified Time Do you use any illicit or recreational drugs? No [email or web address] Information not available 04/23/2022 Do you or have you ever used any other forms of tobacco or nicotine? No [email or web address] Information not available 04/23/2022 What is your level of alcohol consumption? None [email or web address] Information not available 03/12/2022 Do you or have you ever used e-cigarettes or vape? Never used electronic cigarettes [email or web address] Information not available 03/12/2022 What is your exercise level? Moderate [email or web address] Information not available 03/12/2022 Mental Status None recorded. Family History Relationship Description Onset Age of this Age Resolved Age Notes LastModified by Organization Details LastModified Time Paternal Grandfather Hypercholest erolemia [email or web address] Not available 03/12 10:18:16 Paternal Grandfather Heart disease [email or web address] Not available 03/12 10:18:16 Mother Endometriosi s (clinical) Not available 10:18:16 Mother Hyperthyroid ism [email or web address] Not available 03/12 10:18:16 Father Diabetes mellitus Not available 03/12 10:18:16 Father Hypertensive disorder [email or web address] Not available 03/12 10:18:16 Maternal Grandfather Myocardial infarction Not available 02/22 10:18:16 Maternal Grandfather Heart disease Not available 03/12 10:18:16 Paternal Grandmother Malignant neoplastic disease [email or web address] Not available 03/12 10:18:16 Medical History Condition Response Other Cancer N High Blood Pressure N Colon Cancer N Cytomegalovirus N Hyperthyroidism N MRSA N Blood Transfusion N Herpes (HSV) N Breast Cancer N Lung Cancer N Depression N Hypothyroidism N Incontinence N Panic Attacks N Neurological Disorder N Deep Vein Thrombosis N Anxiety Disorder N Autoimmune disease N Arthritis N Shingles N Tuberculosis/Positive PPD N Polycystic Ovarian Syndrome N Cervical Cancer N Chlamydia N Hematuria N Stroke N Varicosities N Seasonal allergies N Crohn's Disease N Alzheimer's/Dementia N COPD/Emphysema N Endometriosis N HPV/Genital Warts N IBS (Irritable Bowel Syndrome) N History of Abnormal Pap N High Cholesterol N Liver Disease N Kidney Infection N Fibromyalgia N Ulcer N Kidney Disease N HIV N Gallbladder disease N Von Willebrand disease N Sickle Cell Disease/Trait N ADD/ADHD N Eating Disorder N Diabetes Mellitus (non-insulin dependent ) N Anemia N Ovarian Problems N Multiple Sclerosis N Gonorrhea N Frequent Urinary Tract infections N Osteopenia N Headaches/migraines N GERD (reflux) N Ovarian Cancer N Diabetes (insulin dependent) N Seizures/Epilepsy N Fibroids N Asthma N Heart Attack N Endometrial Cancer N Lupus N Rubella N Blood Clotting Disorder N [...] SNOMED-CT Code Diagnosis ICD10 Code Diagnosis Note [id number] Radha medellin, [facility] [address] [place] [address] 03/12/2022 09:50:30 03/12/2022 12:56:09 Screening for malignant neoplasm of cervix 517225488 Z12.4 Gynecologi c examination 68687385 Z01.481 [id number] Munira Ng DO [facility] [address] [place] [address] 04/23/2022 15:31:58 04/23/2022 16:27:25 Reproductive care management 533441875 Z31.9 Health Concerns Section Related Observation LastModified by Organization Detai ls LastModified Time None Recorded Concern Status LastModified by Organization Details LastModified Time None Recorded Advance Directives Directive None Recorded Payers Insurance Date Sequence Insurance Name Policy Number Policy Cummings Covered Member ID Cummings Member ID Guarantor Name 04/23/2022 1 [facility] [id number] Domitila Shepard [id number] Domitila Shepard Notes Date Note Type [...] during her first . Munira Ng DO [address], [place], [address], [facility] 04/23/2022 20:10:56 OBGyn Episode No OBEpisode recorded.
--- OUTSIDE RECORDS SUMMARY | 2025-05-04 11:35 | XMS_ITS | Clinical Summary ---
Author Organization [facility] Address [address] [place] [address] Phone Care Team Providers Care Police Manager Name Role Phone Unavailable Primary Care Provider Unavailabl e Encounters Date Type Department Care Team Description 03/09/2025 9:58 AM CDT - 03/09/2025 11:59 PM CDT Hospital Encounter [facility] [address] [place] [address] Néstor Alvarez MD Discharge Disposition: Home or Self Care 02/14/2025 External Device Data STL ABSTRACTION Provider, Abstract 02/14/2025 External Device Data STL ABSTRACTION Provider, Abstract 02/14/2025 External Device Data STL ABSTRACTION Provider, Abstract 02/09/2025 12:45 PM CDT - 02/09/2025 11:59 PM CDT Hospital Encounter [facility] [address] [place] [address] Jordan Chang MD Discharge Disposition: Home or Self Care from Last 3 Months Social History Tobacco Use Types Packs/Day Years Used Date Smoking Tobacco: Never Assessed Comments Unknown Sex and Gender Information Value Date Recorded Sex Assigned at Not on file 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 NO: [id number] Referring MD: JORDAN CHANG MD Site: [place] Transitional Nurse: Tarah Ramirez RDMS : 1990 Age: 34 [...] Z36.2: Encounter for other screening follow-up Procedures 41995: Ultrasound, uterus, real time with image documentation, [...] 1 lb 7 oz EFW by Hadlock ([id number]) Extremities / Bony Struc Biometry: FL / [...] and date of were verified by the vamp cut out worker prior to the exam IMPRESSION ----- Martinez [...] Pat. Name:Nas BASSETT Date:03/09/2025 10:03am Pat. NO: [id number] MD:JORDAN CHANG MD [facility] RDMS :1990Age:34 ----- INDICATION ----- Screening Follow-Up Personal History of Other Complications hx pre-e Maternal Obesity (BMI>40) Complicating CODING ----- Diagnoses Z3A.24: Weeks of gestation O99.212: Obesity complicating Z87.59: Personal history of other complications ofpregnancy, childbirth and the puerperium Z36.3: Encounter for screening formalformations Z3A.24: Weeks of gestation O99.212: Obesity complicating Z36.2: Encounter for other screeningfollow-up Procedures 34642: Ultrasound, uterus, real time withimage documentation, follow [...] fetuses: 1 DATING ----- GA by prior [email or web address] w + 0 d SHITAL by prior [...] 1 lb 7 oz EFW by Hadlock ([id number]-[id number]-FL) Extremities / Bony Struc Biometry: FL / [...] and date of were verified by the vamp cut out worker prior tothe exam IMPRESSION ----- Martinez @ [...] BASSETT Study Date: 02/09/2025 1:00pm Pat. NO: [id number] Referring MD: Site: [place] Transitional Nurse: Letha Almazan RDMS : 1990 Age: 34 ----- INDICATION ----- Anatomy Survey No NIPT Personal History of Other Complications h/o Preeclampsia Maternal Obesity (BMI>40) Complicating CODING ----- Diagnoses Z3A.20: Weeks of gestation O99.212: Obesity complicating Z87.59: Personal history of other complications of , childbirth and the puerperium Z36.3: Encounter for screening for malformations Procedures 44630: Ultrasound, uterus, real time with image documentation, [...] 0 lb 12 oz EFW by Hadlock ([id number]) Head / Face / Neck Biometry: [place] 6.2 mm CM 2.8 mm 2% Nicolaides [...] Thorax 4-chamber view. LVOT view. 3-vessel view. 1-xgzudt-zdxlsfh view. Situs. Aortic arch view. Superior vena [...] and date of were verified by the vamp cut out worker before the exam IMPRESSION ----- Summary of [...] Pat. Name:Nas BASSETT Date:02/09/2025 1:00pm Pat. NO: [id number] MD: [facility]Letha Almazan RDMS :1990Age:34 ----- INDICATION ----- Anatomy Survey No NIPT Personal History of Other Complications h/o Preeclampsia Maternal Obesity (BMI>40) Complicating CODING ----- Diagnoses Z3A.20: Weeks of gestation O99.212: Obesity complicating Z87.59: Personal history of other complications ofpregnancy, childbirth and the puerperium Z36.3: [facility]counter for [facility] Procedures 13433: Ultrasound, uterus, real time withimage documentation, and maternal evaluation plus detailed anatomic examination,transabdominal approach MATERNAL ASSESSMENT ----- Physical Exam Weight 117 kg. BMI 42.93 kg/m METHOD ----- Transabdominal ultrasound examination ----- Martinez . Number of fetuses: 1 DATING ----- Method of dating:based on stated SHITAL GA by prior [email or web address] w + 0 d SHITAL by prior [...] 0 lb 12 oz EFW by Hadlock ([id number]) Head / Face / Neck Biometry: [place] 6.2 mm CM 2.8 mm 2%Nicolaides Inner [...] / Thorax 4-chamber view. LVOT view. 3-vessel view.1-pkiduh-tvpdvvb view. Situs. Aortic arch view. Superior vena [...] and date of were verified by the vamp cut out worker beforethe exam IMPRESSION ----- Summary of Findings: [...] Final Result from Last 3 Months Insurance [facility] [id number]
[2025-05-04 12:22] VITALS: BP 116/69; PULSE 77
[2025-05-18 11:03] LABS: Hematocrit 35.5 % (37.0-47.0); Hemoglobin 11.8 g/dL (12.0-15.0); Immature Granulocyte Percent A 1.4 % (0-0.5); Lymphocytes Absolute Auto 1.67 K/mm3 (0.9-3.2); Mean Corpuscular HGB Conc 33.2 g/dl (32-36); Mean Corpuscular Hemoglobin 29.6 pg (26-34); Mean Corpuscular Volume 89.0 fl (80-100); Nucleated Red Blood Cells Absolute Auto 0.000 K/mm3 (0.0-0.012); Nucleated Red Blood Cells Perc 0.0 % (0.0-0.2); Platelet Count Result 262 k/mm3 (150-375); Red Blood Count 3.99 M/mm3 (4.2-5.4); White Blood Count 12.0 K/mm3 (4.5-10.0)
[2025-05-18 11:16] LABS: Alanine Aminotransferase 29 U/L (6-35); Albumin Level 4.0 g/dL (3.5-5.1); Alkaline Phosphatase 76 U/L (38-126); Anion Gap 12 mmol/L (4-12); Aspartate Amino Transferase 27 U/L (14-36); Bilirubin,Total 0.7 mg/dL (0.2-1.3); Blood Urea Nitrogen 6 mg/dL (7-17); Calcium 9.7 mg/dL (8.4-10.2); Carbon Dioxide 17 mmol/L (22-30); Chloride 105 mmol/L (98-107); Estimated Glomerular Filt Rate > 60; Glucose 114 mg/dL (65-110); Potassium 4.1 mmol/L (3.4-5.0); Sodium 134 mmol/L (137-145); Total Protein 7.6 g/dL (6.3-8.2); Uric Acid 5.3 mg/dL (2.5-7.5)
[2025-05-18 12:40] VITALS: BP 126/73; PULSE 81
[2025-05-25 11:05] VITALS: BP 131/77; PULSE 88
[2025-05-25 11:40] LABS: Hematocrit 34.7 % (37.0-47.0); Hemoglobin 11.4 g/dL (12.0-15.0); Immature Granulocyte Percent A 1.3 % (0-0.5); Lymphocytes Absolute Auto 1.75 K/mm3 (0.9-3.2); Mean Corpuscular HGB Conc 32.9 g/dl (32-36); Mean Corpuscular Hemoglobin 29.4 pg (26-34); Mean Corpuscular Volume 89.4 fl (80-100); Nucleated Red Blood Cells Absolute Auto 0.000 K/mm3 (0.0-0.012); Nucleated Red Blood Cells Perc 0.0 % (0.0-0.2); Platelet Count Result 261 k/mm3 (150-375); Red Blood Count 3.88 M/mm3 (4.2-5.4); White Blood Count 11.2 K/mm3 (4.5-10.0)
[2025-05-25 11:49] LABS: Alanine Aminotransferase 23 U/L (6-35); Albumin Level 3.7 g/dL (3.5-5.1); Alkaline Phosphatase 70 U/L (38-126); Anion Gap 9 mmol/L (4-12); Aspartate Amino Transferase 25 U/L (14-36); Bilirubin,Total 0.6 mg/dL (0.2-1.3); Blood Urea Nitrogen 7 mg/dL (7-17); Calcium 9.7 mg/dL (8.4-10.2); Carbon Dioxide 18 mmol/L (22-30); Chloride 106 mmol/L (98-107); Estimated Glomerular Filt Rate > 60; Glucose 121 mg/dL (65-110); Potassium 3.8 mmol/L (3.4-5.0); Sodium 133 mmol/L (137-145); Total Protein 7.3 g/dL (6.3-8.2); Uric Acid 5.3 mg/dL (2.5-7.5)
[2025-06-01 12:31] VITALS: BP 116/72; PULSE 88
[2025-06-01 12:38] LABS: Hematocrit 34.4 % (37.0-47.0); Hemoglobin 11.5 g/dL (12.0-15.0); Immature Granulocyte Percent A 1.2 % (0-0.5); Lymphocytes Absolute Auto 1.66 K/mm3 (0.9-3.2); Mean Corpuscular HGB Conc 33.4 g/dl (32-36); Mean Corpuscular Hemoglobin 29.8 pg (26-34); Mean Corpuscular Volume 89.1 fl (80-100); Nucleated Red Blood Cells Absolute Auto 0.000 K/mm3 (0.0-0.012); Nucleated Red Blood Cells Perc 0.0 % (0.0-0.2); Platelet Count Result 262 k/mm3 (150-375); Red Blood Count 3.86 M/mm3 (4.2-5.4); White Blood Count 11.5 K/mm3 (4.5-10.0)
[2025-06-01 13:10] LABS: Alanine Aminotransferase 21 U/L (6-35); Albumin Level 3.7 g/dL (3.5-5.1); Alkaline Phosphatase 78 U/L (38-126); Anion Gap 9 mmol/L (4-12); Aspartate Amino Transferase 27 U/L (14-36); Bilirubin,Total 0.7 mg/dL (0.2-1.3); Blood Urea Nitrogen 8 mg/dL (7-17); Calcium 9.2 mg/dL (8.4-10.2); Carbon Dioxide 19 mmol/L (22-30); Chloride 104 mmol/L (98-107); Estimated Glomerular Filt Rate > 60; Glucose 115 mg/dL (65-110); Potassium 3.5 mmol/L (3.4-5.0); Sodium 132 mmol/L (137-145); Total Protein 7.2 g/dL (6.3-8.2); Uric Acid 5.4 mg/dL (2.5-7.5)
--- NOTE | ~2025-06-08 | US_ITS ---
EXAM: US OB follow up - 05/18/2025 11:05 CDT History: 34 years old Female with JOHN and EFW, for preE Comparison: None available. Technique Real time transabdominal obstetric sonographic imaging was performed. Findings A single live intrauterine gestation is identified. Gestational age is 34 weeks and 2 days with an es timated date of delivery on 06/27/2025. Lie: longitudinal Presentation: vertex heart rate: 157 beats per minute Placental position: Fundal JOHN: 11.24 cm, which is between the 5 th and 95 th percentiles Biparietal diameter: 8.29 cm cm, 33 weeks 2 days Head circumference: 30.86 cm, 34 weeks 3 days Abdominal circumference: 30.35 cm, 34 weeks 2 days Femur length: 6.12 cm, 31 weeks 5 days HC/AC: 1.02, [within normal limits] EFW: 2214 g +/- 332 g Impression Single intrauterine gestation with normal JOHN and weight. Reviewed, dictated and finalized at location A. Impression Single intrauterine gestation with normal JOHN and weight.
--- NOTE | ~2025-06-08 | US_ITS ---
EXAMINATION: US OB BPP wo non-stress DATE: 05/25/2025 14:03 INDICATION: Variable cardiac decelerations during third trimester . Assess amniotic fluid in dex. TECHNIQUE: Real-time pelvic ultrasound was performed. The interpreting radiologist was not present fo r the study. COMPARISON: 05/18/2025 FINDINGS: There is a single living fetus in vertex presentation. The placenta is fundal and not low-lying. Nor mal cervical length of 4.7 cm. heart rate is 140 beats per minute (bpm). Normal amniotic fluid index of 9.1 cm (5th%-95%: 7.9-T4 0.9 cm at 35 weeks estimated gestational age). Biophysical profile performed by the technologist: breathing (30 sec sustained breathing in 30 minutes): 2 out of 2 movement (3 gross body movements in 30 minutes): 2 out of 2 tone (one episode of nnhlqvr-yfaidnmus-yfulaaq limb movement): 2 out of 2 Amniotic fluid pocket (2 cm): 2 out of 2 Total score: 8 out of 8 IMPRESSION: 1. Single living fetus in vertex presentation with heart rate of 140 bpm. 2. Biophysical profile 8 out of 8. 3. Normal amniotic fluid index of 9.1 cm. Reviewed, dictated and finalized at location B.
--- NOTE | ~2025-06-08 | US_ITS ---
EXAMINATION: US OB limited DATE: 05/04/2025 12:06 INDICATION: Third trimester with gestational diabetes. Assess amniotic fluid index. TECHNIQUE: Real-time ultrasound of the pelvis was performed. The interpreting radiologist was not pre sent for the study. COMPARISON: None. FINDINGS: There is a single living fetus in vertex presentation. The placenta is fundal. heart rate is 1 34 beats per minute (bpm). The amniotic fluid index is 18.3 cm, which is normal (5th%-95%: 8.6-24.2 c m at 32 weeks estimated gestational age). IMPRESSION: 1. Single living fetus in vertex presentation with heart rate of 134 bpm. 2. Normal amniotic fluid index of 14.3 cm. Reviewed, dictated and finalized at location A. IMPRESSION: 1. Single living fetus in vertex presentation with heart rate of 134 bpm . 2. Normal amniotic fluid index of 14.3 cm.
[2025-06-08 11:06] LABS: Hematocrit 35.9 % (37.0-47.0); Hemoglobin 12.1 g/dL (12.0-15.0); Mean Corpuscular HGB Conc 33.7 g/dl (32-36); Mean Corpuscular Hemoglobin 30.0 pg (26-34); Mean Corpuscular Volume 88.9 fl (80-100); Platelet Count Result 259 k/mm3 (150-375); Red Blood Count 4.04 M/mm3 (4.2-5.4); White Blood Count 10.9 K/mm3 (4.5-10.0)
[2025-06-08 11:16] VITALS: BP 116/72; PULSE 91
[2025-06-08 11:29] LABS: Alanine Aminotransferase 23 U/L (6-35); Albumin Level 3.8 g/dL (3.5-5.1); Alkaline Phosphatase 84 U/L (38-126); Anion Gap 10 mmol/L (4-12); Aspartate Amino Transferase 28 U/L (14-36); Bilirubin,Total 0.7 mg/dL (0.2-1.3); Blood Urea Nitrogen 7 mg/dL (7-17); Calcium 9.7 mg/dL (8.4-10.2); Carbon Dioxide 18 mmol/L (22-30); Chloride 105 mmol/L (98-107); Estimated Glomerular Filt Rate > 60; Glucose 108 mg/dL (65-110); Potassium 3.8 mmol/L (3.4-5.0); Sodium 133 mmol/L (137-145); Total Protein 7.5 g/dL (6.3-8.2); Uric Acid 5.6 mg/dL (2.5-7.5)
== END 2025-07-01 09:54 | disposition home or self-care (01) ==
LOC: ANHOBOP 10:28
PROVIDERS: PCP Family Medicine; Visit Provider Obstetrics & Gynecology
DX: O16.3 Unspecified maternal hypertension, third trimester (principal); O24.419 Gestational diabetes mellitus in pregnancy, unspecified control; Z3A.32 32 weeks gestation of pregnancy; Z3A.34 34 weeks gestation of pregnancy; Z3A.35 35 weeks gestation of pregnancy; Z3A.36 36 weeks gestation of pregnancy; Z3A.37 37 weeks gestation of pregnancy
CPT/HCPCS: 36415; 59025; 76815; 76816; 76819; 80053; 81001; 82570; 84156; 84550; 85025; 85027

== ENCOUNTER 2025-06-09 10:50 | Outpatient (CLI) | payer OTHER, SELFPAY ==
[2025-06-09] VITALS (10 sets, daily range): BP systolic 115–134; BP diastolic 66–84; PULSE 82–89; BMI 43.9
--- OUTSIDE RECORDS SUMMARY | 2025-06-09 11:27 | XMS_ITS | Clinical Summary ---
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
--- OUTSIDE RECORDS SUMMARY | 2025-06-09 11:27 | XMS_ITS | Clinical Summary ---
Author Organization [facility] Address [address] [place] [phone] Phone Care Team Providers Care Refund Specialist Name Role Phone Unavailable Primary Care Provider Unavailabl e Encounters Date Type Department Care Team Description 06/07/2025 External Device Data [place] ABSTRACTION Provider, Abstract 05/23/2025 External Device Data [place] ABSTRACTION Provider, Abstract from Last 3 Months Social History Tobacco Use Types Packs/Day Years Used Date Smoking Tobacco: Never Assessed Comments Unknown Sex and Gender Information Value Date Recorded Sex Assigned at Not on file 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
--- OUTSIDE RECORDS SUMMARY | 2025-06-09 11:27 | XMS_ITS | Clinical Summary ---
Author Organization [facility] Address [address] [place] [address] Phone Care Team Providers Care Inverter And Clipper Name Role Phone Unavailable Primary Care Provider Unavailabl e Allergies Active Allergy Reactions Criticality Noted Date Comments Azithromycin Nausea,Palpitations, Vomiting,Other (see Comments) High 08/19/2021 Stomach pain Penicillin G Hives 03/30/2022 [place] Extract Hives,Rash,Itching,S welling High 08/19/2021 Swelling in [...] Virus (HCV) Screening 1992 TdaP Immunization 1992 Human Papillomavirus (HPV) Immunization (1 - 3-dose series) 2007 Hepatitis B Immunization (1 of 3 - 19+ 3-dose series) 2011 Pap Smear 2013 Cervical Cancer Screening (CCS) 2022 HPV/Cotest 2022 SARS-COV-2 Immunization (3 - 2023- season) 2024 11/02/2021, 10/05/2021 Influenza Immunization (#1) 2025 Respiratory Syncytial Virus (RSV) Immunization (Adult) [...]
--- OUTSIDE RECORDS SUMMARY | 2025-06-09 11:27 | XMS_ITS | Encounter Summary ---
Author Organization [facility] Address [address] [place] [address] Care Team Providers Care 8Th Grade Mathematics Teacher Name Role Phone Unavailable Primary Care Provider Unavailabl e Encounter Details Date Type Department Care Team (Late st Contact Info) Description 06/07/2025 External Device Data [place] ABSTRACTION Provider, Abstract NO ADDRESS ON FILE Social History Tobacco Use Types Packs/Day Years Used Date Smoking Tobacco: Never Assessed Comments Unknown Sex and Gender Information Value Date Recorded Sex Assigned at Not on file Legal Sex Female 4:00 PM FILL TECHNICIAN Gender Identity Not on file Sexual Orientation Not on file documented as of this encounter Plan of Treatment Not on file documented as of this encounter Visit Diagnoses Not on filedocumented in this encounter
[2025-06-09 12:13] LABS: Hematocrit 35.6 % (37.0-47.0); Hemoglobin 11.8 g/dL (12.0-15.0); Immature Granulocyte Percent A 1.0 % (0-0.5); Lymphocytes Absolute Auto 1.55 K/mm3 (0.9-3.2); Mean Corpuscular HGB Conc 33.1 g/dl (32-36); Mean Corpuscular Hemoglobin 29.4 pg (26-34); Mean Corpuscular Volume 88.8 fl (80-100); Nucleated Red Blood Cells Absolute Auto 0.000 K/mm3 (0.0-0.012); Nucleated Red Blood Cells Perc 0.0 % (0.0-0.2); Platelet Count Result 256 k/mm3 (150-375); Red Blood Count 4.01 M/mm3 (4.2-5.4); White Blood Count 10.5 K/mm3 (4.5-10.0)
[2025-06-09 12:24] LABS: Total Protein Urine Random 11 mg/dL; Ur Ttl Prot Creatinine Ratio 0.16 mg/mg (0-0.20)
[2025-06-09 12:32] LABS: Add Urine Microscopic? YES; Appearance Urine Clear (Clear); Glucose Urine UA Negative (Negative); Leukocyte Esterase Ur 1+ LEU/UL (Negative); Need Manual Microscopic Reviewed; Nitrate Urine Negative (Negative); Non Pathogenic Casts 0-2; Specific Grav Ur 1.010 (1.001-1.035)
[2025-06-09 12:38] LABS: Alanine Aminotransferase 19 U/L (6-35); Albumin Level 3.7 g/dL (3.5-5.1); Alkaline Phosphatase 78 U/L (38-126); Anion Gap 10 mmol/L (4-12); Aspartate Amino Transferase 29 U/L (14-36); Bilirubin,Total 0.8 mg/dL (0.2-1.3); Blood Urea Nitrogen 7 mg/dL (7-17); Calcium 9.6 mg/dL (8.4-10.2); Carbon Dioxide 20 mmol/L (22-30); Chloride 105 mmol/L (98-107); Estimated Glomerular Filt Rate > 60; Glucose 81 mg/dL (65-110); Potassium 4.0 mmol/L (3.4-5.0); Sodium 135 mmol/L (137-145); Total Protein 7.5 g/dL (6.3-8.2); Uric Acid 6.5 mg/dL (2.5-7.5)
--- NOTE | 2025-06-09 12:58 | PC.NURSE ---
Dr. Lowry informed of BP's, lab results, reactive NST, headache resolved spontaneously. Order received for discharge. Pt to complete 24 hr urine at home and bring back to hospital tomorrow. Pt to call office Thursday and schedule appointment for Thursday.
--- NOTE | 2025-06-09 13:23 | PC.NURSE ---
Dr. Lowry informed pt had asked me to check the accuracy of her home BP cuff one more time before she went home. Received a BP of 153/98 with her cuff. Repeat using hospital cuff was 134/72. Pt instructed to return her BP cuff that she just bought and get a replacement. Instructed to bring that new cuff with her when she goes to the office on Thursday. Pt verbalizes understanding.
== END 2025-06-09 13:28 | disposition home or self-care (01) ==
LOC: ANHOBOP 11:25 → ANHOBPP 11:26
PROVIDERS: Visit Provider Obstetrics & Gynecology
DX: O13.9 Gestational [pregnancy-induced] hypertension without significant proteinuria, unspecified trimester (principal); Z3A.00 Weeks of gestation of pregnancy not specified
CPT/HCPCS: 36415; 59025; 80053; 81001; 81050; 82570; 82575; 84156; 84550; 85025; 87086; 99199

== ENCOUNTER 2025-06-10 14:30 | Outpatient (CLI) | payer OTHER, SELFPAY ==
--- OUTSIDE RECORDS SUMMARY | 2025-06-10 14:34 | XMS_ITS | Continuity of Care Document ---
Author Organization [facility] Address [address] [place] [address] [address] [place] [address] Phone Care Team Providers Care Cable Swager Name Role Phone Monique Burger OT Unavailable [...] or Cold Pack Therapeutic Activities Neuromuscular Re-Ed Manual Therapy Therapeutic Exercise Hot or Cold Pack Paraffin Bath Therapeutic Activities Therapeutic Exercise Neuromuscular Re-Ed Manual Therapy Hot or Cold Pack OT Evaluation Low Complexity Therapeutic Activities Neuromuscular Re-Ed Therapeutic Exercise Hot or Cold Pack Manual Therapy Advance Directives Directive Yes / No Effective Date File Name No Information Encounters Encounter Description Practice Location Reason(s) For Visit Diagnoses Date Provider Providers Copied on Encounter [facility] [address], [place], [place], [id number], tel:[phone] [place] No Information 2 Jennyfer Amaya. . [facility] [address] [address], [place], [place], [id number], tel:[phone] [place] No Information 2 Jennyfer Amaya. . Referring Provider: Melinda Rosen [address], [place], [address]. tel:[phone] [place] [address] [address] [address], [place], [place], [id number], tel:[phone] [place] No Information 2 Derek Mattea. . Referring Provider: Melinda Rosen [address], [place], [address]. tel:[phone] [facility] [address] [address], [place], [place], [id number], tel:[phone] [place] No Information 2 Jennyfer Amaya. . Referring Provider: Melinda Rosen [address], [place], [address]. tel:[phone] [facility] [address] [facility] [address] [facility] [address], [place], [place], [id number], [place] tel:[phone] [place] No Information 2 Jennyfer Amaya. . Referring Provider: Melinda Rosen [facility] [address], [place], [address]. tel:[phone] [facility] [address], [place], [place], [id number], tel:[phone] [place] No Information 2 Jennyfer Monique. . Referring Provider: Jose D James, [address], [place], [address] . tel:[phone] [facility], [address] [facility] [address], [place], [place], [id number], tel:[phone] [place] No Information 2 Jennyfer Amaya. . Referring Provider: Jose D James, [address], [place], [address] . tel:[phone] [facility], [address] [facility] [address], [place], [place], [id number], tel:[phone] [place] No Information 2 Jennyfer Amaya. . Referring Provider: Jose D James, [address], [place], [address] . tel:[phone] Family History Family Member Type Diagnosis Age At Onset No Information Payers Payer name Insurance type Covered alliance party ID Fawad eppersonkimberly(s) [facility] [id number] Social History Type Description Quantity Date Captured [...]
--- OUTSIDE RECORDS SUMMARY | 2025-06-10 14:34 | XMS_ITS | Clinical Summary ---
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
--- OUTSIDE RECORDS SUMMARY | 2025-06-10 14:34 | XMS_ITS | Data Portability ---
Author Organization [facility] , [facility] Address [address] [place] [address] Assessment No assessment recorded. Plan of Treatment Reminders Order Date Submit Date Provider Last Modified By Organization Details Last Modified Time Details Appointments None jovany [facility] Lab progest erone, serum 2021 [employer] [facility], [address] [place], [address], 18:22:13 estradi ol, serum 2021 022 [employer] [facility], [address] [place], [address], 18:22:14 unliste d lab - anti-mu llerian hormone (amh), female 2021 [employer] [facility], [address] [place], [address], 2 18:22:12 FSH (follic le-stim ulating hormone ), serum 2021 022 [employer] [facility], [address] [place], [address], 2 18:22:13 prolact in, serum 2021 022 [employer] [facility], [address] [place], [address], 18:22:14 TSH + free T4, serum 2021 [employer] [facility], [address] [place], [address], 18:22:14 testost erone, total, serum 2021 [employer] [facility], [address] [place], [address], 18:22:15 dhea-casillas lfate, serum 2021 [employer] [facility], [address] [place], [address], 18:22:12 pap, LB 2021 [employer] [facility], [address] [place], [address], 21:32:53 HPV E6+E7 mRNA, qualita tive PCR, cervix 2021 [facility], [address] [place] [address], [address], 22:46:23 Referral None recorde d. Procedures None recorde d. Surgeries None recorde d. Imaging None recorde d. Medication Orders None recorde d. Patient TargetsNo targets recorded. Patient Instructions Encounter Date Encounter Id Patient Instructions Last Modified By Organization Details Last Modified Time 04/23/2022 [id number] Order given to patient for to get semen analysis, patient having labs drawn today, after lab results will start patient on provera and letrazole. [email or web address] Not available 04/23/2022 20:10:34 Reason for Referral [...] ogy. Not Available [facility] [address] [place], [address], 04/02/2022 18:30:59 03/12/20 22 03/18/2022 THINP REP TIS PAP clinical information: normal Infor matio n not provi ded Not Available [facility] [address] [address] [place], [address], 03/18/2022 21:32:53 03/12/20 22 03/18/2022 THINP REP TIS PAP LMP: normal Infor matio n not provi ded Not Available [address] [place], [address], 03/18/2022 21:32:53 03/12/20 22 03/18/2022 THINP REP TIS PAP prev. Pap: normal Infor matio n not provi ded Not Available [address] [address] [place], [address], 03/18/2022 21:32:53 03/12/20 22 03/18/2022 THINP REP TIS PAP prev. BX: normal Infor matio n not provi ded Not Available [address], [address], 03/18/2022 21:32:53 03/12/20 22 03/18/2022 THINP REP TIS PAP source: normal Endoc ervix Not Available [facility] [address], [address], 03/18/2022 21:32:53 03/12/20 22 03/18/2022 THINP REP TIS PAP statement of adequacy: normal Satis facto ry for evalu ation . Endoc ervic al/tr ansfo rmati on zone compo nent prese nt. Age and/o r menst rual statu s not provi ded Not Available [address] [address] [place], [address], 03/18/2022 21:32:53 03/12/20 22 03/18/2022 THINP REP TIS PAP interpretati on/result: normal Negat ekaterina for intra epith elial lesio n or malig elizabeth . Not Available [address] [address] [place], [address], 03/18/2022 21:32:53 03/12/20 22 03/18/2022 THINP REP TIS PAP comment: normal This Pap test has been evalu ated with compsosa troncoso techn ology . Not Available [address] [address] [place], [address], 03/18/2022 21:32:53 03/12/20 22 03/18/2022 THINP REP TIS PAP cytotechnolo gist: normal ABC, CT( CP) CT scree mitchell locat ion: [address] [address] [place] [address] Not Available [address] [address] [place], [address], 03/18/2022 21:32:53 03/12/20 22 03/18/2022 THINP REP [...] clini neva infor matio n. Not Available [address] [address] [place], [address], 03/18/2022 21:32:53 04/23/20 22 04/25/2022 ANTI- MULLE DEREK HORMO NE (AMH) , FEMAL E anti-mulleri an hormone (amh), female 13.51 NG/mL 0.69-1 3.39 high Not Available [employer] [address] [address] [place], [address], 04/25/2022 18:22:12 04/23/20 22 04/25/2022 DHEA SULFA TE DHEA sulfate 107 mcg/d L 14-349 normal Not Available [employer] [address] [address] [place], [address], 04/25/2022 18:22:12 04/23/20 22 04/25/2022 FSH FSH 7.1 mIU/m L normal Refer ence Range Folli cular Phase 2.5-1 0.2 Mid-c ycle Peak 3.1-1 7.7 Lutea l Phase 1.5- 9.1 Postm enopa usal 23.0- 116.3 Not Available [employer] [address] [address] [place], [address], 04/25/2022 18:22:13 04/23/2004/25/2022 PROGE STERO NE progesterone 0.5 NG/mL normal Refer ence Range s Femal e Folli cular Phase < 1.0 Lutea l Phase 2.6-2 1.5 Post menop ausal < 0.5 Pregn wendy 1st Trime ster 4.1-3 4.0 2nd Trime ster 24.0- 76.0 3rd Trime ster 52.0- 302.0 Not Available [employer] [facility] [address] [place], [address], 04/25/2022 18:22:13 04/23/2004/25/2022 PROLA CTIN prolactin 8.8 NG/mL normal Refer ence Range Femal es Non-p regna nt 3.0-3 0.0 Pregn ant 10.0- 209.0 Postm enopa usal 2.0-2 0.0 Not Available [employer] [facility] [address] [place], [address], 04/25/2022 18:22:14 04/23/20 22 04/25/2022 ESTRA DIOL [...] is recom itzel d (orde r code 94149 ). Pleas e note: patie nts being [...] s. [facility] order code 96332 -Estr adiol , Ultra sensi tive LC/MS /MS demon strat es negli gible cross react ivity with fulve stran t. Not Available [employer] [facility] [address] [place], [address], 04/25/2022 18:22:14 04/23/20 22 04/25/2022 TSH+F REE T4 TSH 5.18 mIU/L high Refer ence Range > or = 20 Years 0.40- 4.50 Pregn wendy Range s First trime ster 0.26- 2.66 Secon d trime ster 0.55- 2.73 Third trime ster 0.43- 2.91 Not Available [employer] [facility] [address] [address] , [place], [address], 04/25/2022 18:22:14 04/23/20 22 04/25/2022 TSH+F REE T4 T4, free 1.4 NG/dL 0.8-1. 8 normal Not Available [facility] [address] [address], [place], [address], 04/25/2022 18:22:14 04/23/20 22 04/25/2022 TESTO STERO NE, TOTAL , MS testosterone , total, MS 50 NG/dL 2-45 high For addit ional infodong deleon refer to https ://ed ucati on.[employer]. [employer] Sheep/f aq/To [facility] LCMSM S (This link is being provi ded for martinar danie nal/e ducat ional purpo ses only. ) (Note ) This test was devel oped and its harjinder tical perfo rmanc e bashir cteri stics have been deter mined by [employer]. It has not been clear ed or appro chery by the FDA. This assay has been valid ated pursu ant to the CLIA regul ation s and is used for clini neva purpo ses. PK spears fuslien n [address] [facility] [address] [facility] [address] [phone] Garry sabillon MD Not Available [employer] [facility] [address] [address] , [place], [address], 04/25/2022 18:22:15 Result Notes None recorded. Procedures Surgical History Date Name Laterality Status Provider Name and Address Organization Details Recorded Time 03/12/2022 Date of Last Pap Smear completed [employer] [facility] IV 04/23/2022 15:46:12 Knee arthroscopy /surgery completed [facility] IV 04/23/2022 15:43:25 Imaging Results None recorded. Procedure Notes None recorded. Medical Equipment None Reported. Allergies Allergen ID Allergen Name Allergen Category Reaction Reaction Severity Criticality Documentation Date Start Date Code Code System Note Provider Name and Address Organization Details Recorded Time 762736 latex environme nt,medica tion Not available Not available Not available 03/12/2022 97984 91 RxNorm Tarah child, [facility] 2 10:18:11 353563 Product containin g penicilli n (product) medicatio n Not available Not available Not available 03/12/2022 15169 8001 SNOMED Tarah child, [facility] 2 10:18:11 161699 azithromy radha medicatio n Not available Not available Not available 03/12/2022 66592 RxNorm Tarah child, [facility] 2 10:18:11 Medications Name Sig Start Date [...] Body mass index (BMI) Body weight Systolic And Diastolic Provider Name and Address Organization Details Last Updated DateTime 03/12/2022 167.64 cm 47.5 kg/m2 126930.16 g 120/80 mm[Hg] Tarah Rich [facility] IV 03/12/2022 10:32:30 Date Recorded Body height Body mass index (BMI) Body weight Body temperature Systolic And Diastolic Provider Name and Address Organization Details Last Updated DateTime 04/23/2022 167.64 cm 46.9 kg/m2 421722. 66 g 97.3 [degF] 130/78 mm[Hg] Juanis Pennington DC [facility] IV 15:47:59 Social History Question Answer Notes LastModified by Organizat [employer] Details LastModified Time Tobacco Smoking Status Never Smoker Tarah Rich [place] [facility] IV 03/12/2022 10:18:44 Are You Blind Or Do You Have Difficulty Seeing? No Information not available 04/23/2022 Are You Deaf Or Do You Have Serious Difficulty Hearing? No [email or web address] Information not available 04/23/2022 What Type Of Diet Are You Following? REGULAR [email or web address] Information not available 03/12/2022 How Many Children Do You Have? 1 [email or web address] Information not available 04/23/2022 What Is Your Relationship Status? [email or web address] Information not available 03/12/2022 Are You Sexually Active? Yes [email or web address] Information not available 03/12/2022 Sex: Unknown Functional Status Question Answer Note LastModified by Organizat ion Details LastModified Time Do you use any illicit or recreational drugs? No [email or web address] Information not available 04/23/2022 Do you or have you ever used any other forms of tobacco or nicotine? No [email or web address] Information not available 04/23/2022 What is your level of alcohol consumption? None [email or web address] Information not available 03/12/2022 Do you or have you ever used e-cigarettes or vape? Never used electronic cigarettes [email or web address] Information not available 03/12/2022 What is your exercise level? Moderate [email or web address] Information not available 03/12/2022 Mental Status None recorded. Family History Relationship Description Onset Age of this Age Resolved Age Notes LastModified by Organization Details LastModified Time Paternal Grandfather Hypercholest erolemia [email or web address] Not available 03/12 10:18:16 Paternal Grandfather Heart disease [email or web address] Not available 03/12 10:18:16 Mother Endometriosi s (clinical) [email or web address] Not available 10:18:16 Mother Hyperthyroid ism [email or web address] Not available 03/12 10:18:16 Father Diabetes mellitus [email or web address] Not available 03/12 10:18:16 Father Hypertensive disorder Not available 03/12 10:18:16 Maternal Grandfather Myocardial infarction [email or web address] Not available 02/22 10:18:16 Maternal Grandfather Heart disease [email or web address] Not available 03/12 10:18:16 Paternal Grandmother Malignant neoplastic disease [email or web address] Not available 03/12 10:18:16 Medical History Condition Response Other Cancer N High Blood Pressure N Colon Cancer N Cytomegalovirus N Hyperthyroidism N Blood Transfusion N MRSA N Herpes (HSV) N Breast Cancer N [...] SNOMED-CT Code Diagnosis ICD10 Code Diagnosis Note [id number] Radha medellin, CNM [facility] h [address] [place] [address] 03/12/2022 09:50:30 03/12/2022 12:56:09 Screening for malignant neoplasm of cervix 975092132 Z12.4 Gynecologi c examination 57560439 Z01.124 [id number] Munira Ng DO [facility] [address] [place] [address] 04/23/2022 15:31:58 04/23/2022 16:27:25 Reproductive care management 368085003 Z31.9 Health Concerns Section Related Observation LastModified by Organization Detai ls LastModified Time None Recorded Concern Status LastModified by Organization Details LastModified Time None Recorded Advance Directives Directive None Recorded Payers Insurance Date Sequence Insurance Name Policy Number Policy Cummings Covered Member ID Cummings Member ID Guarantor Name 04/23/2022 1 [facility] [id number] Domitila Shepard [id number] Domitila Shepard Notes Date Note Type [...] her first . Munira Ng DO [address] [facility], [place], [address], [facility] 04/23/2022 20:10:56 OBGyn Episode No OBEpisode recorded.
--- OUTSIDE RECORDS SUMMARY | 2025-06-10 14:34 | XMS_ITS | Clinical Summary ---
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
--- OUTSIDE RECORDS SUMMARY | 2025-06-10 14:34 | XMS_ITS | Clinical Summary ---
Author Organization [facility] Address [address] [place] [address] Phone Care Team Providers Care Measurement And Verification Engineer Name Role Phone Unavailable Primary Care Provider Unavailabl e Allergies Active Allergy Reactions Criticality Noted Date Comments Azithromycin Nausea,Palpitations, Vomiting,Other (see Comments) High 08/19/2021 Stomach pain Penicillin G Hives 03/30/2022 Universal Extract Hives,Rash,Itching,S welling High 08/19/2021 Swelling in [...]
[2025-06-10 14:35] VITALS: BMI 44.4
[2025-06-10 16:39] LABS: Serum Creat 0.56; Total Protein Urine Random 13 mg/dL
[2025-06-10 16:56] LABS: Specific Gravity Ur 1.010; Total Protein Urine 24 Hr 604 mg/24hr (28-141); Total Volume 24 Hour Urine 4650 ml
[2025-06-10 16:57] LABS: Creatinine Clearance Urine 211.7 ml/min (75-125); Total Volume 24 Hour Urine 4650 ml
== END 2025-06-10 14:31 | disposition home or self-care (01) ==
LOC: ANHOBOP 14:32
PROVIDERS: Visit Provider Obstetrics & Gynecology
DX: O13.9 Gestational [pregnancy-induced] hypertension without significant proteinuria, unspecified trimester (principal); Z3A.00 Weeks of gestation of pregnancy not specified
CPT/HCPCS: 81050; 82575; 84156

== ENCOUNTER 2025-06-13 11:47 | Inpatient (IN) | payer OTHER, SELFPAY ==
[2025-06-13] VITALS (31 sets, daily range): BP systolic 121–156; BP diastolic 63–97; PULSE 69–94; TEMP 36.3; BMI 44.7
--- OUTSIDE RECORDS SUMMARY | 2025-06-13 11:54 | XMS_ITS | Clinical Summary ---
Author Organization [facility] Address [address] [place] [address] Phone Care Team Providers Care Leather Splitter Name Role Phone Unavailable Primary Care Provider Unavailabl e Allergies Active Allergy Reactions Criticality Noted Date Comments Azithromycin Nausea,Palpitations, Vomiting,Other (see Comments) High 08/19/2021 Stomach pain Penicillin G Hives 03/30/2022 Wever Extract Hives,Rash,Itching,S welling High 08/19/2021 Swelling in [...]
--- OUTSIDE RECORDS SUMMARY | 2025-06-13 11:54 | XMS_ITS | Clinical Summary ---
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 Gender Identity Not on file Sexual [...] of 3 - 19+ 3-dose series) 2011 HPV Vaccines (1 - 3-dose SCD M series) 2019 Cervical Cancer Screening Pa p with HPV Testing (Age 30 to 64) Every 5 Years 2022 Cervical Cancer Screening wi th HPV 2022 COVID-19 Vaccine (3 - 2023-2 5 season) 2024 11/02/2021, 10/05/2021 DTaP, Tdap and Td Vaccines ( 2 - Td or Tdap) 11/23/2028 11/23/2018 Meningococcal B Vaccine Aged Out No l [...] to complete this topic Insurance Care Teams Kitchen Designer Relationship Specialty Start Date End Date Marce Campbell MD [address] [place] [address] PCP - General FAMILY PRACTICE 12/10/23
[2025-06-13 13:12] LABS: Hematocrit 35.0 % (37.0-47.0); Hemoglobin 11.9 g/dL (12.0-15.0); Immature Granulocyte Percent A 1.1 % (0-0.5); Lymphocytes Absolute Auto 1.68 K/mm3 (0.9-3.2); Mean Corpuscular HGB Conc 34.0 g/dl (32-36); Mean Corpuscular Hemoglobin 29.7 pg (26-34); Mean Corpuscular Volume 87.3 fl (80-100); Nucleated Red Blood Cells Absolute Auto 0.000 K/mm3 (0.0-0.012); Nucleated Red Blood Cells Perc 0.0 % (0.0-0.2); Platelet Count Result 277 k/mm3 (150-375); Red Blood Count 4.01 M/mm3 (4.2-5.4); White Blood Count 11.3 K/mm3 (4.5-10.0)
[2025-06-13 13:15] LABS: Add Urine Microscopic? YES; Appearance Urine Clear (Clear); Glucose Urine UA Negative (Negative); Leukocyte Esterase Ur Trace LEU/UL (Negative); Nitrate Urine Negative (Negative); Non Pathogenic Casts 0-2; Specific Grav Ur 1.007 (1.001-1.035)
[2025-06-13 13:21] LABS: Total Protein Urine Random 25 mg/dL; Ur Ttl Prot Creatinine Ratio 0.59 mg/mg (0-0.20)
[2025-06-13 13:28] LABS: Alanine Aminotransferase 20 U/L (6-35); Albumin Level 3.9 g/dL (3.5-5.1); Alkaline Phosphatase 100 U/L (38-126); Anion Gap 10 mmol/L (4-12); Aspartate Amino Transferase 27 U/L (14-36); Bilirubin,Total 0.8 mg/dL (0.2-1.3); Blood Urea Nitrogen 8 mg/dL (7-17); Calcium 10.0 mg/dL (8.4-10.2); Carbon Dioxide 18 mmol/L (22-30); Chloride 103 mmol/L (98-107); Estimated Glomerular Filt Rate > 60; Glucose 81 mg/dL (65-110); Potassium 3.9 mmol/L (3.4-5.0); Sodium 131 mmol/L (137-145); Total Protein 7.4 g/dL (6.3-8.2); Uric Acid 6.0 mg/dL (2.5-7.5)
[2025-06-13 13:51] LABS: Syphilis IgG/IgM Antibody Non-Reactive (Nonreactive)
--- NOTE | 2025-06-13 16:41 | LDADM ---
This patient, Domitila Shepard, was admitted to Labor/Delivery/Recovery 109 on 06/13/25 at 11:47. Plans for labor, pain management and were discussed with patient. Patient/family oriented to hospital policies and general routines including ID bracelet, bed and alarms, visiting hours, pain management, procedures, bathroom and other care routines, personal items, smoking policy, room service/diet and guest tray routines, security routines, and visiting hours. Patient/Family are encouraged to report perceived risks to care and to ask questions if they do not understand what they are told or what they should do. See OBIX for further documentation.
--- NOTE | 2025-06-13 18:23 | PM.IMHP ---
H&P: HPI History of Present Illness Date/Time: 06/13/25 18:23 Chief Complaint: 34 y/o at 37 5/7 weeks presented to L and D for evaluation of elevated blood pressures at PATSY visit. She denies severe headache or scotomata or RUQ pain. PNC significant for having had one prior increased blood pressure prior to today. She has had proteinuria since 31 weeks blood pressures in office and at surveillance testing normal. She had some increased blood pressures at home but her cuff was not consistent with office or L/D bp. She has had PIH labs weekly and surveillance testing since the elevated protein. She had PIH with her last . BP today increased. PIH labs normal today. Pr/Cr increased from previous. She was recommended for IOL for mild pre-eclampsia. Cervix 1.5/60/-3. Review of Systems Review of Systems: All systems reviewed & are unremarkable except as noted in HPI and below Constitutional: Constitutional: Reports no additional constitutional complaints and Denies headache(s) Eyes: Eyes: Denies spots in vision ENT: Reports system reviewed and no additional complaints, except as documented and Denies headache(s) Cardiovascular: Cardiovascular: Denies chest pain and Denies dyspnea Respiratory: Respiratory: Denies dyspnea Gastrointestinal: Gastrointestinal: Reports no additional gastrointestinal complaints Genitourinary: Genitourinary: Reports amenorrhea Musculoskeletal: Musculoskeletal: Reports no additional musculoskeletal complaints Integumentary/Breasts: Skin/Breast: Denies breast mass and Denies rash Neurologic: Denies headache(s) Psychiatric: Psychiatric: Reports no additional psychiatric complaints [facility] Past Medical History Medical History PCOS (polycystic ovarian syndrome) Surgical History Surgical History H/O hand surgery H/O: knee surgery Family History Family History Mother Hypertension Thyroid disease Father Diabetes mellitus Depression Hypertension Social History Social History Smoking status: Never smoker Alcohol intake: never Substance use: never Do You Feel Safe in your Home?: Yes Lack of Transportation: No Lack of Food: Never True Current Housing: I Have Housing Concerned About Future Housing: No Difficulty Paying Gas/Electric Bills: No Difficulty Paying for Meds: No Currently Unemployed: No Education: High School Diploma/GED Difficulty w/ Childcare or Family Care: No Spiritual care concerns: No Meds Home Medications and Allergies Home Medications ?Medication ?Instructions ?Recorded ?Confirmed ?Type sertraline 25 mg tablet 25 mg PO HS 11/03/24 06/13/25 History vitamin#30 30 mg iron-10 1 cap PO DAILY 01/12/25 06/01/25 History mg iron-folic acid 1 mg-omg3 capsule aspirin 162.5 mg capsule,extended 162.5 mg PO HS 03/08/25 06/13/25 History release 24 hr acetaminophen 500 mg tablet 1,000 mg PO Q6H PRN Headache or 05/04/25 06/13/25 History (Acetaminophen Extra Strength) Mild Pain loratadine 10 mg tablet (Claritin) 10 mg PO DAILY 05/11/25 06/13/25 History vit no.95-ferrous 1 tablet PO DAILY 06/13/25 06/13/25 History fumarate 28 mg-folic acid 800 mcg tablet () Allergies Allergy/AdvReac Type Severity Reaction Status Date / Time adhesive Allergy Rash Verified 06/13/25 16:54 strawberry Allergy Itching Verified 06/13/25 16:54 azithromycin AdvReac Vomiting Verified 06/13/25 16:54 Vital Signs Vital Signs - 24 hr 06/13/25 12:13 06/13/25 12:15 06/13/25 12:30 Pulse Rate 82 85 80 Blood Pressure 155/83 H 156/96 H 151/88 H Oxygen Delivery 06/13/25 13:00 06/13/25 13:15 06/13/25 13:30 Pulse Rate 79 78 79 Blood Pressure 125/83 136/86 144/97 H Oxygen Delivery 06/13/25 13:45 06/13/25 14:00 06/13/25 14:15 Pulse Rate 78 81 78 Blood Pressure 142/89 H 148/96 H 151/91 H Oxygen Delivery 06/13/25 14:30 06/13/25 14:45 06/13/25 15:15 Pulse Rate 87 86 85 Blood Pressure 151/89 H 156/84 H 139/77 Oxygen Delivery 06/13/25 15:30 06/13/25 15:45 06/13/25 16:00 Pulse Rate 87 94 89 Blood Pressure 130/78 140/79 123/74 Oxygen Delivery 06/13/25 16:31 06/13/25 16:40 06/13/25 17:01 Pulse Rate 88 88 Blood Pressure 143/81 H 129/73 Oxygen Delivery Room Air 06/13/25 17:31 06/13/25 18:01 Pulse Rate 84 79 Blood Pressure 129/79 140/72 Oxygen Delivery Exam Const: General: no acute distress Eyes: General: appearance normal, both eyes and all related structures Resp: Effort & Inspection: normal respiratory effort Cardio: Rate: regular rate GI: Other: Gravid no fundal tenderness no right upper quadrant pain Skin: General skin exam: no rashes or lesions noted Neuro: Cognition (Neuro): normal cognition Extrem: General: normal to inspection Psych: Mental Status: mental status grossly normal H&P: Results Labs Labs: Short CBC 06/13/25 Range/Units 12:59 WBC 11.3 H (4.5-10.0) K/mm3 Hgb 11.9 L (12.0-15.0) g/dL Hct 35.0 L (37.0-47.0) % Plt Count 277 (150-375) k/mm3 BMP 06/13/25 12:59 Sodium 131 L Potassium 3.9 Chloride 103 Carbon Dioxide 18 L BUN 8 Creatinine 0.49 L Glucose 81 Calcium 10.0 Liver Function 06/13/25 Range/Units 12:59 Total Bilirubin 0.8 (0.2-1.3) mg/dL AST 27 (14-36) U/L ALT 20 (6-35) U/L Alkaline Phosphatase 100 (38-126) U/L Albumin 3.9 (3.5-5.1) g/dL Urine 06/13/25 Range/Units 12:59 Urine Color Yellow (Yellow) Urine Appearance Clear (Clear) Urine pH 7.5 (5.0-9.0) Ur Specific [place] 1.007 (1.001-1.035) Urine Protein Negative (Negative) mg/dL Urine Glucose (UA) Negative (Negative) mg/dL Assessment and Plan Assessment and plan (1) Pre-eclampsia: Code(s): O14.90 - Unspecified pre-eclampsia, unspecified trimester Status: Acute Assessment and Plan: Without severe features. Admit. Cytotec then low dose pitocin.
--- NOTE | 2025-06-13 20:54 | WPDANESEPP ---
Anes - Eval Pre Procedure Procedure: labor pain management Date/Time: 06/13/25 20:54 Surgeon: Essence Preop Diagnosis: pain during labor Pre Op Diagnosis: iol Patient Data Age: 34 Gender: F Height: 1.65 m Weight: 122 kg Last Vital Signs Pulse 80 06/13/25 20:31 BP 129/74 06/13/25 20:31 O2 Del Method Room Air 06/13/25 16:40 Allergies Allergy/AdvReac Type Severity Reaction Status Date / Time adhesive Allergy Rash Verified 06/13/25 16:54 strawberry Allergy Itching Verified 06/13/25 16:54 azithromycin AdvReac Vomiting Verified 06/13/25 16:54 Home Medications ?Medication ?Instructions ?Recorded ?Confirmed ?Type sertraline 25 mg tablet 25 mg PO HS 11/03/24 06/13/25 History vitamin#30 30 mg iron-10 1 cap PO DAILY 01/12/25 06/01/25 History mg iron-folic acid 1 mg-omg3 capsule aspirin 162.5 mg capsule,extended 162.5 mg PO HS 03/08/25 06/13/25 History release 24 hr acetaminophen 500 mg tablet 1,000 mg PO Q6H PRN Headache or 05/04/25 06/13/25 History (Acetaminophen Extra Strength) Mild Pain loratadine 10 mg tablet (Claritin) 10 mg PO DAILY 05/11/25 06/13/25 History vit no.95-ferrous 1 tablet PO DAILY 06/13/25 06/13/25 History fumarate 28 mg-folic acid 800 mcg tablet () Laboratory Tests 06/13/25 12:59 WBC 11.3 H K/mm3 (4.5-10.0) RBC 4.01 L M/mm3 (4.2-5.4) Hgb 11.9 L g/dL (12.0-15.0) Hct 35.0 L % (37.0-47.0) MCV 87.3 fl (80-100) MCH 29.7 pg (26-34) MCHC 34.0 g/dl (32-36) RDW 13.8 % (11.5-14.5) Plt Count 277 k/mm3 (150-375) MPV 11.3 H fl (7.4-10.4) Immature Gran % (Auto) 1.1 H % (0-0.5) Neut % (Auto) 78.2 H % (45.5-73.1) Lymph % (Auto) 14.9 L % (18.3-44.2) [place] % (Auto) 5.1 % (2.6-8.5) Eos % (Auto) 0.4 % (0-4.4) Baso % (Auto) 0.3 % (0.2-1.2) Lymph # (Auto) 1.68 K/mm3 (0.9-3.2) [place] # (Auto) 0.6 K/mm3 (0.1-0.6) Eos # (Auto) 0.1 K/mm3 (0-0.3) Baso # (Auto) 0.0 K/mm3 (0.0-0.1) Abs Immat Gran (auto) 0.12 H K/mm3 (0.00-0.031) Absolute Neuts (auto) 8.8 H K/mm3 (1.3-6.7) Absolute Nucleated RBC 0.000 K/mm3 (0.0-0.012) Nucleated RBC % 0.0 % (0.0-0.2) Sodium 131 L mmol/L (137-145) Potassium 3.9 mmol/L (3.4-5.0) Chloride 103 mmol/L (98-107) Carbon Dioxide 18 L mmol/L (22-30) Anion Gap 10 mmol/L (4-12) BUN 8 mg/dL (7-17) Creatinine 0.49 L mg/dL (0.7-1.0) Estim Creat Clear Calc Not Reportable Estimated GFR > 60 (59 - ) Glucose 81 mg/dL (65-110) Uric Acid 6.0 mg/dL (2.5-7.5) Calcium 10.0 mg/dL (8.4-10.2) Total Bilirubin 0.8 mg/dL (0.2-1.3) AST 27 U/L (14-36) ALT 20 U/L (6-35) Alkaline Phosphatase 100 U/L (38-126) Total Protein 7.4 g/dL (6.3-8.2) Albumin 3.9 g/dL (3.5-5.1) Urine Color Yellow (Yellow) Urine Appearance Clear (Clear) Urine pH 7.5 (5.0-9.0) Ur Specific [place] 1.007 (1.001-1.035) Urine Protein Negative mg/dL (Negative) Urine Glucose (UA) Negative mg/dL (Negative) Urine Ketones Negative mg/dL (Negative) Ur Blood (Man) Negative (Negative) Urine Nitrate Negative (Negative) Urine Bilirubin Negative (Negative) Urine Urobilinogen 0.2 mg/dL (<2.0) Leukocyte Esterase Rfl Trace H MATT/UL (Negative) Urine RBC 0-2 /hpf (0-2) Urine WBC 0-5 /hpf (0-3) Ur Squamous Epith Cells None seen /hpf (Few) Urine Bacteria None seen /hpf Urine Casts 0-2 U Random Total Protein 25 mg/dL Urine Creatinine 42.2 mg/dL Protein/Creat Ratio 2 0.59 H mg/mg (0-0.20) Syphilis IgG/IgM Ab Non-reactive (Nonreactive) Blood Type O Positive Antibody Screen Negative Patient hx anesthesia problems: none Family hx anesthesia problems: none Results Review: All pre-operative results and documents have been reviewed as part of the pre-operative evaluation. [facility] Past Medical History Medical History Arthritis Fibromyalgia Depression Anxiety Morbid obesity with BMI of 40.0-44.9, adult PCOS (polycystic ovarian syndrome) Surgical History Surgical History H/O hand surgery H/O: knee surgery Family History Family History Mother Hypertension Thyroid disease Father Diabetes mellitus Depression Hypertension Social History Social History Smoking status: Never smoker Alcohol intake: never Substance use: never Do You Feel Safe in your Home?: Yes Lack of Transportation: No Lack of Food: Never True Current Housing: I Have Housing Concerned About Future Housing: No Difficulty Paying Gas/Electric Bills: No Difficulty Paying for Meds: No Currently Unemployed: No Education: High School Diploma/GED Difficulty w/ Childcare or Family Care: No Spiritual care concerns: No Exam Day of Procedure 06/13/25 20:54
[2025-06-13] MEDS: LACTATED RINGERS 1,000 ML 125 ML IV CONT (21:28)
[2025-06-13] MEDS: OXYTOCIN 30 UNITS/NS 500 ML 30 UNITS/500 ML BAG IV CONT (21:34)
[2025-06-13] MEDS: SERTRALINE HCL 25 MG TABLET PO (23:48)
[2025-06-14] VITALS (174 sets, daily range): BP systolic 115–174; BP diastolic 54–97; PULSE 62–132; RESP 16; TEMP 36.4–37.1; O2SAT 93–100
[2025-06-14] MEDS: ONDANSETRON INJ 4 MG/2 ML VIAL IV PUSH ×2 (03:51→13:04)
[2025-06-14] MEDS: LACTATED RINGERS 1,000 ML 125 ML IV CONT ×3 (05:18→14:36)
--- NOTE | 2025-06-14 08:42 | PM.OBPNLAB ---
Pain Control Date/time seen: 06/14/25 08:42 Comments: fht 130, cat 1, cervix 2.5/70/-2, AROM clear. BP normal. Denies severe symptoms. Continue Pitocin.
[2025-06-14] MEDS: fentaNYL CITRATE INJ (*CRX) 100 MCG/2 ML VIAL 50 MCG IV PUSH ×2 (08:44→09:39)
[2025-06-14] MEDS: OXYTOCIN 30 UNITS/NS 500 ML 30 UNITS/500 ML BAG 999 UNITS IV CONT (17:10)
--- NOTE | 2025-06-14 17:18 | P.PCNOB_ITS ---
OB - Vaginal Delivery Note Procedure Delivery date: 06/14/25 Events: Other (Pre-eclampsia without severe features) Induction method: Per Misoprostol Protocol and Per Pitocin Protocol Delivery augmentation: Rupture of Membranes Delivery monitor: External FHT, External Uterine and Internal Uterine Route of delivery: Episiotomy description: None Laceration Description: Perineal - 2nd Degree Specimen: Yes (placental segments) Quantitative Blood Loss (ml): 450 Anesthesia type: Epidural Disposition: Floor Complications: Other complications (Retained placenta) Narrative: She was admitted for induction of labor due to increased blood pressure and increasing protein creatinine ratio. This gave her the diagnosis of preeclampsia without severe features. She had Cytotec for cervical ripening and then Pitocin. She had assisted rupture membranes the morning of 06/14/2025. She continued to progress in labor. She had epidural placed upon request. She dilated to complete. She pushed several times and delivered a male . The nose and mouth were suction with the bulb at the perineum. The rest the was delivered infant was crying and placed on maternal abdomen. The cord was wrapped around lower leg x 2 loosely and reduced. Delayed cord clamping for 1 minute until cord was a pulsatile. cord blood and cord gases obtained. Pitocin started. There was initial descent of the cord and then minimal. The Pitocin was discontinued uterus was massaged. There was a cord avulsion. Partial. Attempted to manually remove placenta but the placenta was noted to be very ad herent anteriorly and superior. A portion of the placenta and membranes were removed. Patient was comfortable at this time, she had good analgesia from her epidural. She was informed of retained placenta inability to remove all of it at the bedside, recommend removal of placenta and curettage in the OR. Discussed risk benefits of removal of placenta and curettage to include bleeding infection risk of hysterectomy blood transfusion. Discussed risk of not removing the placenta. She agreed to the procedure. EBL at this time 200 cc. While waiting for a room available in the OR at approximately 1740 pt was being transferred to another bed and placenta delivered. It was inspected and noted to be intact. The uterine cavity was manually explored and no tissue palpated in cavity. Uterus firm. A bedside ultrasound performed and no obvious or echogenic tissue seen. Perineum inspected and she had a small second degree laceration which was repaired with 2.0 vicryl. She was given subcutaneous lidocaine for analgesia. She tolerated well. Minimal bleeding. Uterus firm. Will give Cytotec 800ug rectally. Baby Date of : 06/14/25 Time of : 16:19 Gestational Age by Date: 37 Infant gender: Male Weight (pounds): 6 Weight (ounces): 5 presentation: vertex position: Right Occiput Anterior Placenta delivery description: Uterine Exploration Cord Vessel Description: 3 Vessels, Delayed Cord Clamping and Around Extremity score one minute: 8 score five minutes: 9
--- NOTE | 2025-06-14 17:35 | S_PTH ---
PATIENT: Domitila Shepard LOC: [facility] U#:[id number] AGE/SX: 34/F ROOM: 281 RE06/13/[address]: Jordan Lowry MD : [id number] BED: 00 DIS: 06/16/2025 SPEC #: [id number] RECD: 06/16/25 08:50 STATUS: SANKET REQ #: [id number] FELICIANO: 06/14/25 17:[address]: Jordan Lowry DEPT: [facility] Surgical RECD BY: Racheal Overton ENTERED: 06/16/25 08:50 SP TYPE: Surgical OTHR DR: TEXTILE COLORIST DYER PHYSICIAN Tissues: A - Placenta Procedures: Hematoxylin and Eosin Stain Gross and Microscopic Level 5
[2025-06-14] MEDS: OXYTOCIN 30 UNITS/NS 500 ML 30 UNITS/500 ML BAG 125 UNITS IV CONT (18:00)
--- NOTE | 2025-06-14 18:09 | P.DS_ITS ---
DS: Admitting Diagnosis Discharge Date 06/16/2025 Admitting Diagnosis preeclampsia DS: Discharge Diagnosis Discharge Diagnosis (1) Pre-eclampsia: Code(s): O14.90 - Unspecified pre-eclampsia, unspecified trimester Status: Acute (2) Vaginal delivery: Code(s): O80 - Encounter for full-term uncomplicated delivery Status: Acute OB - DS: Summary Hospital Course Hospital Course: patient was admitted for medical induction of labor for preeclampsia. She had an uncomplicated vaginal delivery. She did well . Her blood pressures were normal with an isolated elevated after delivery. She denied any PIH symptoms after delivery. Her pain was controlled. baby was doing well she was ambulating well she was discharged to home on day 2. Instructed on PIH precautions. OB Procedures : NST, PIH Mgmt and Ultrasound OB Procedures Intrapartum: Spontaneous Vag Delivery OB Procedures: : None Peripartum Data Delivery Method: Natural Vaginal Laceration Description: Perineal - 2nd Degree Episiotomy description: None Procedures: Procedures Operation Date: 06/14/25 18:00 <No data on this case meets the specified criteria> complications: none Status at Discharge Functional status at discharge: independent ambulation Time Spent with Patient Time attestation: Total time spent providing and/or coordinating discharge services: Exam Const: General: cooperative Orientation/consciousness: oriented to person, oriented to place and oriented to time HENMT: Face/Nose/Sinus: Normal external nose present Eyes: General: appearance normal, both eyes and all related structures Resp: Effort & Inspection: normal respiratory effort GI: Inspection: normal to inspection Skin: General skin exam: normal color Neuro: General: oriented to person, oriented to place and oriented to time Extrem: General: normal to inspection and no calf tenderness Psych: Appearance: grossly normal Mental Status: mental status grossly normal Discharge Plan Discharge Attending physician on discharge: Jordan Lowry Consulting providers: Lizeth Blancas Discharging Clinician: Jordan Lowry Anticipated Discharge Date/Time: 06/16/25 11:42 Patient Disposition: Home Activity: may shower and pelvic rest Diet: regular Discharge Instructions: Continue Sertraline and vitamins daily. Patient Instructions: Antibiotic Form Patient Language: Macedonian Stand Alone Forms: General Discharge Information Follow-up/Referrals: Jordan Lowry MD [Physician] - Call for Appointment Discharge Medications: No Action sertraline 25 mg tablet 25 mg PO HS PNV #[id number] acid-omega3 30 mg iron-10 mg iron-1 mg capsule 1 cap PO DAILY loratadine [Claritin] 10 mg tablet 10 mg PO DAILY aspirin 162.5 mg capsule,extended release 24hr 162.5 mg PO HS PNV no.95-ferrous fumarate-FA [] 28 mg iron- 800 mcg tablet 1 tablet PO DAILY acetaminophen [Acetaminophen Extra Strength] 500 mg tablet 1,000 mg PO Q6H PRN (Reason: Headache or Mild Pain) Date of admission: 06/13/25 11:47 Primary Care Provider: PHYSICIAN,COMPUTER HELP DESK SPECIALIST Admitting Provider: Jordan Lowry Attending physician on admission: Jordan Lowry Condition: Stable
[2025-06-14] MEDS: ACETAMINOPHEN 500 MG TABLET 1000 MG PO (18:24)
[2025-06-14] MEDS: IBUPROFEN 600 MG TABLET PO (18:31)
--- NOTE | 2025-06-14 20:20 | OBPPTRN ---
Patient transferred to post room #281 via wheelchair. Support person present. Oriented to unit, room, information board, rooming in, admission packet and security measures. Patient verbalizes understanding.
[2025-06-14] MEDS: ceFAZolin 1 GM in SODIUM CHLORIDE 0.9% IV 50 ML 100 ML IVPB (21:30)
[2025-06-14] MEDS: SERTRALINE HCL 25 MG TABLET PO (21:35)
[2025-06-15] VITALS (9 sets, daily range): BP systolic 108–142; BP diastolic 59–91; PULSE 70–90; RESP 16–18; TEMP 36.2–36.8; O2SAT 96–98
[2025-06-15] MEDS: ACETAMINOPHEN 325 MG TABLET 650 MG PO ×3 (00:31→20:11)
[2025-06-15] MEDS: IBUPROFEN 600 MG TABLET PO ×4 (00:31→20:10)
[2025-06-15] MEDS: ceFAZolin 1 GM in SODIUM CHLORIDE 0.9% IV 50 ML 100 ML IVPB ×2 (05:26→11:56)
[2025-06-15 05:40] LABS: Hematocrit 29.9 % (37.0-47.0); Hemoglobin 10.1 g/dL (12.0-15.0)
--- NOTE | 2025-06-15 08:16 | PC.NURSE ---
Introductions were made, then consulted with patient to assess needs related to . Mother led the conversation with her?plans to feed and the?experience so far. Mother states that infant has a difficult time nursing on the right breast (her daughter also had issues nursing on the right breast) but does great nursing on the left breast. Mother just finished feeding baby boy and is encouraged to call RN for assistance with next feeding to assess her right breast and any potential issues with feeding on the right side. Otherwise, mother states that she feels confident with and denies needing any education at this time. Communication board updated with RN contact information. Primary RN updated.
[2025-06-15] MEDS: DOCUSATE SODIUM 100 MG CAPSULE PO (08:58)
[2025-06-15] MEDS: MULTIVIT/MIN/PREN/FOL AC/IRON TABLET 1 TAB PO (08:58)
--- NOTE | 2025-06-15 13:17 | WPDANLDPN2 ---
Anes-Prog Note L&D Date/Time: 06/15/25 13:17 Comfortable throughout: labor and delivery Neuraxial method: epidural Epidural/Spinal procedure site: clean & non-tender Neuro status: Neuro function grossly intact. Cardiovascular status: normal Respiratory status: normal Airway patency: baseline Mental status: baseline Post-Op hydration status: normal Vital Signs: Last Vital Signs Temp 36.4 C L 06/15/25 12:05 Pulse 74 06/15/25 12:05 Resp 18 06/15/25 12:05 BP 131/81 06/15/25 12:05 Pulse Ox 96 06/15/25 12:05 O2 Del Method Room Air 06/14/25 20:45 Pain score (VAS): 1 I/O: Intake & Output 06/14/25 06/15/25 06/15/25 23:59 07:59 15:59 Intake Total 550 50 Output Total 650 1950 Balance -100 -1900 Post-procedural complaints: none Patient feedback: Patient satisfied with anesthetic care.
--- NOTE | 2025-06-15 16:40 | PC.NURSE ---
0930: Assisted mother with placing on the right breast. would not latch possibly due to flatter nipple on the right side. Nipple shield provided to mother due to infants inability to maintain latch. Reviewed good handwashing, cleaning the nipple shield and the appropriate way to apply and use as a tool. Discussed with mom the nipple shield precautions, possible complications associated with the risks and benefits. Reviewed practicing with a nipple shield, then without and how to protect the milk supply and production. would not nurse at this time. Mother encouraged to remain skin to skin with and call this RN if begins to show feeding cues. 1040: Called back to patient room to assist with latching . Upon entering room, infant rooting on mothers chest. Nipple shield was applied and was able to latch and maintain latch in the football position. Encouraged mother to call for assistance if needed for next feeding.
[2025-06-15] MEDS: SERTRALINE HCL 25 MG TABLET PO (20:11)
[2025-06-16 07:40] VITALS: BP 116/75; PULSE 78; RESP 18; TEMP 36.8; O2SAT 97
--- NOTE | 2025-06-16 07:46 | P.PNOB_ITS ---
OB - PN: Subj Subjective Date/time seen: 06/15/25 1030 Interval history: Denies headache, scotomata or RUQ pain. Patient comments: pain well controlled, tolerating diet and other (Decreasing lochia.) [place] baby status: doing well and nursing well [place] feeding status: exclusively breast feeding OB - PN: Obj Data Labs 06/15/25 05:19 06/13/25 12:59 OB - PN A/P Assessment and Plan (1) Vaginal delivery: Code(s): O80 - Encounter for full-term uncomplicated delivery Status: Acute Assessment and Plan: Doing well. Routine care. (2) Pre-eclampsia: Code(s): O14.90 - Unspecified pre-eclampsia, unspecified trimester Status: Acute Assessment and Plan: Stable bp. continue to monitor. no signs or symptoms of pre-eclampsia. Plan day: 1 Plan: routine care Comments: Patient doing well. Time Spent With Patient Time: Total time spent is greater than 50% in coordination of care (as documented) at patient's floor/unit and/or counseling patient: Exam 2 Psych: Affect: normal affect Other: Abd: fundus firm below umbilicus, nontender Ext: nontender
[2025-06-16] MEDS: IBUPROFEN 600 MG TABLET PO (08:29)
[2025-06-16] MEDS: DOCUSATE SODIUM 100 MG CAPSULE PO (08:29)
[2025-06-16] MEDS: ACETAMINOPHEN 325 MG TABLET 650 MG PO (08:29)
[2025-06-16 08:30] VITALS: PULSE 78; RESP 18; O2SAT 97
[2025-06-16] MEDS: MULTIVIT/MIN/PREN/FOL AC/IRON TABLET 1 TAB PO (08:40)
--- NOTE | 2025-06-16 11:15 | PC.NURSE ---
Consulted with mother concerning needs and she shared her ability to independently latch infant. Baby latches better to the left breast and is using the nipple shield on the right breast. Mom states that there is some pain with latching on the left breast and we discussed use of the shield on that side also if needed. She used a nipple shield with her first baby. Encouraged pumping with use of the nipple shield for additional stimulation. Mother is feeding appropriately for growth of infant and understands stimulating to eat if needed. She has supplemented with formula a few times per her preference. Infant has had appropriate feedings in the last 24 hours meets the outcomes for weight, output, blood sugar and jaundice at this time. Reinforced understanding of milk production, transition of milk, signs of adequate intake, transition of stool, prevention/relief of engorgement, plugged ducts, mastitis, community resources, and when to call a provider using the resource of the feeding sheet along with the mom and baby guide. She has a breast pump for use at home. Mother voiced understanding of the information shared, is confident to continue effectively her at home, when to call for assistance, denies any additional assistance or education at this time. Reported to the Primary RN.
[2025-06-17 13:50] VITALS: BP 124/72; PULSE 84; RESP 16; TEMP 37.1; O2SAT 99
== END 2025-06-16 16:20 | disposition home or self-care (01) | DRG 807 ==
LOC: ANHLDR 06-14 17:46 → ANHOB2 06-14 20:23
PROVIDERS: Admitting Provider Obstetrics & Gynecology; Visit Provider Obstetrics & Gynecology
DX: O14.04 Mild to moderate pre-eclampsia, complicating childbirth (principal); Z37.0 Single live birth; O70.1 Second degree perineal laceration during delivery; O73.1 Retained portions of placenta and membranes, without hemorrhage; O69.82X0 Labor and delivery complicated by other cord entanglement, without compression, not applicable or unspecified; Z3A.37 37 weeks gestation of pregnancy
CPT/HCPCS: 36415; 80053; 81001; 82570; 84156; 84550; 85014; 85018; 85025; 86593; 86850; 86900; 86901; 88307; A9270; J0690; J2250; J2405; J2590; J2795; J3010; J7120